=== PATIENT | male | born 1975 | race Caucasian/White ===

== ENCOUNTER 2020-02-27 11:27 | Outpatient (CLI) | payer MEDICAID, SELFPAY ==
[2020-02-27 12:11] LABS: Basophils # 0.1 10^3/uL (0.0-0.1); Basophils % 1.8 %; Eosinophils # 0.1 10^3/uL (0.0-0.8); Eosinophils % 1.6 %; Hematocrit 44.3 % (42.0-52.0); Hemoglobin 15.1 g/dL (11.7-16.6); Lymphocytes # 1.3 10^3/uL (0.8-4.8); Lymphocytes % 34.1 %; Mean Corpuscular HGB Conc 34.1 g/dL (30.0-36.0); Mean Corpuscular Hemoglobin 31.1 pg (28.0-34.0); Mean Corpuscular Volume 91.3 fL (80-94); Mean Platelet Volume 9.4 fL (7.4-10.4); Monocytes # 0.3 10^3/uL (0.2-0.9); Neutrophils # 2.12 10^3/uL (1.8-7.7); Neutrophils % 55.2 %; Nucleated Red Blood Cells % 0 %; Platelet Count 204 10^3/cmm (130-400); Red Blood Count 4.85 10^6/uL (4.1-5.3); White Blood Count 3.8 10^3/uL (4.0-10.0)
[2020-02-27 12:34] LABS: Estmated Average Glucose 97
[2020-02-27 12:41] LABS: Anion Gap 9.2 (5-19); Blood Urea Nitrogen 15 mg/dL (6-20); Carbon Dioxide 30 mmol/L (22-29); Chloride 105 mmol/L (98-107); Free T4 Free Thyroxine 1.36 ng/dL (0.82-1.77); Glomerular Filtration Rate 60.2 mL/min (90-130); Glucose 94 mg/dL (65-115); Osmolality Calculated 291 mOsm/kg (285-295); Potassium 4.2 mmol/L (3.5-5.1); Sodium 140 mmol/L (136-145); Thyroid Stimulating Hormone 1.92 uIU/mL (0.27-4.20)
== END 2020-02-27 11:28 | disposition home or self-care (01) ==
PROVIDERS: PCP Nurse Practitioner Family; Visit Provider Nurse Practitioner Family
DX: R53.83 Other fatigue (principal); R63.4 Abnormal weight loss; E03.9 Hypothyroidism, unspecified
CPT/HCPCS: 36415; 80048; 83036; 84439; 84443; 85025

== ENCOUNTER → 2021-08-06 13:47 | Outpatient (BNVA) | payer MEDICAID, SELFPAY | PROVIDERS: PCP Nurse Practitioner Family; Referring Provider Nurse Practitioner Family; Visit Provider Surgery | DX: R13.10 Dysphagia, unspecified (principal) | CPT/HCPCS: 99203 ==

== ENCOUNTER 2021-08-26 08:56 | Outpatient (CLI) | payer MEDICAID, SELFPAY ==
--- NOTE | 2021-08-26 09:15 | FL_ITS ---
WS: [id number] Exam: FL barium swallow modifd [id number] Date/Time of Exam: 08/26/2021 9:01 AM Reason For Exam: Fluoroscopy time: 2.7 minutes # of spot films: 3 Modified barium swallow was performed in conjunction with the speech therapy service. The patient tolerated thin liquid, thick liquid, nectar consistency and solid barium mixture foodstuf fs without aspiration or penetration. Swallowing function at the level of oropharynx appears grossly normal. Esophageal motility was normal. The patient swallowed fragmented barium tablet without compl ication. FL/FL barium swallow modifd [id number] IMPRESSION: 1. No sign of the aspiration or penetration. Grossly normal esophageal motility and swallowing function. A separate report of findings and recommendations will follow from the speech t herapy department.
== END 2021-08-26 08:57 | disposition home or self-care (01) ==
LOC: RAD 08:58
PROVIDERS: PCP Nurse Practitioner Family; Visit Provider Surgery
DX: R13.10 Dysphagia, unspecified (principal)
CPT/HCPCS: 74230; 92611

== ENCOUNTER 2021-10-15 09:17 | Day surgery (SDC) | payer MEDICAID, SELFPAY ==
[2021-10-14 10:45] VITALS: BMI 22.4
[2021-10-15 09:52] VITALS: BP 113/75; PULSE 66; RESP 18; TEMP 36.3; O2SAT 100
[2021-10-15] MEDS: sodium chloride 0.9% 1,000 ML 30 ML IV (09:55)
--- NOTE | 2021-10-15 10:26 | ANES.PREANE2 ---
Pre-Anesthetic Assessment Height/Weight: Height 1.65 m Weight 61.235 kg Temp Pulse Resp BP Pulse Ox 97.4 F L 66 18 113/75 100 10/15/21 09:52 10/15/21 09:52 10/15/21 09:52 10/15/21 09:52 10/15/21 09:52 Preop Diagnosis: Dysphagia Operation Date: 10/15/21 11:00 Proposed Procedures p EGD Dilation W/ Balloon(Not Applicable) - Dimitri Veloz MD Last intake: Intake Last Liquid Date 10/14/21 Last Liquid Time 23:00 Last Solid Date 10/14/21 Last Solid Time 15:30 Exam alert, clear to auscultation bilaterally and regular rate & rhythm (Pansystolic precordial mumur 4/6) Airway Submandibular: within normal limits Cervical ROM: within normal limits Mallampati: Class II CV/HEM Murmur (s/p VSD repair) GI Gastroesophageal Reflux Disease (esphageal stricture) Metabolic Thyroid Disease Anesthetic Plan ASA status: 3 Anesthesia: MAC (Consent per mother) Medications/Allergies Home Medications Medication Instructions Recorded Confirmed Last Taken Type cyanocobalamin (vitamin B-12) 1,000 mcg IM .MONTHLY 08/06/21 10/14/21 10/14/21 History 1,000 mcg/mL injection solution levocetirizine 5 mg tablet 5 mg PO DAILY 08/06/21 10/14/21 10/14/21 History levothyroxine 100 mcg tablet 100 mcg PO DAILY 08/06/21 10/14/21 10/14/21 History (Synthroid) biotin 1,000 mcg chewable tablet 1,000 mcg PO DAILY 10/14/21 10/14/21 10/14/21 History cholecalciferol (vitamin D3) 125 125 mcg PO DAILY 10/14/21 10/14/21 10/14/21 History mcg (5,000 unit) tablet (Vitamin D3) garlic 1,000 mg capsule 1,000 mg PO DAILY 10/14/21 10/14/21 10/14/21 History ibuprofen 800 mg tablet 800 mg PO Q6H PRN 10/14/21 10/14/21 10/14/21 History Allergies Allergy/AdvReac Type Severity Reaction Status Date / Time No Known Allergies Allergy Verified 10/15/21 09:56 Current Medications Generic Name Dose Route Start Last Admin Trade Name Freq PRN Reason Stop Dose Admin Sodium Chloride 1,000 mls @ 30 mls/hr 10/15/21 09:45 10/15/21 09:55 Sodium Chloride 0.9% IV 30 mls/hr .Q24H HARDY Administration PFSH Anesthesia Family History Other CAD (coronary artery disease) Diabetes Denies family history of Dementia Anesthesia complication Lung disease Cancer Stroke Social History Smoking and tobacco status: never smoked Alcohol intake: never Caregiver/support person: Yes Lives independently: No Household members: other Details: mother Marital status: Single Data Anesthesia Cardiac Studies: No Data to Display
[2021-10-15] MEDS: ceFAZolin 2,000 MG in sodium chloride 0.9% (plus) 50 ML 100 MG IV (11:00)
--- NOTE | 2021-10-15 11:12 | W.PM.OPSFHP ---
Same Day Surgery H&P Indication for Procedure/HPI DATE OF PROCEDURE: October 15, 2021 CHIEF COMPLAINT/INDICATIONFOR SURGICAL PROCEDURE: Problem with swallowing PREOP DIAGNOSIS: Dysphagia PLANNED PROCEDURE: Operation Date: 10/15/21 11:00 Proposed Procedures p EGD Dilation W/ Balloon(Not Applicable) - Dimitri Veloz MD 08/06/2021 This is a pleasant 46 years old gentleman comes today escorted by his mother.? With history of Down syndrome and previous open heart surgery.? Patient has been having problems swallowing over the past year particularly for solid food.? About 2 years ago he gives history of weight loss and he did undergo EGD and colonoscopy where his esophagus got stretched per mom's description. unfortunately I do not have any endoscopy reports available. There is no evidence of hematemesis or hemoptysis or painful swallowing 10/15/2021 Modified barium swallow was done showing unremarkable findings, plan to perform diagnostic EGD today 1. No sign of the aspiration or penetration. Grossly normal esophageal motility and swallowing function. ROS All systems have been reviewed negative except as for the above or per problem list. Medications/Allergies* Home Medications Medication Instructions Recorded Confirmed Type cyanocobalamin (vitamin B-12) 1,000 mcg IM .MONTHLY 08/06/21 10/14/21 History 1,000 mcg/mL injection solution levocetirizine 5 mg tablet 5 mg PO DAILY 08/06/21 10/14/21 History levothyroxine 100 mcg tablet 100 mcg PO DAILY 08/06/21 10/14/21 History (Synthroid) biotin 1,000 mcg chewable tablet 1,000 mcg PO DAILY 10/14/21 10/14/21 History cholecalciferol (vitamin D3) 125 125 mcg PO DAILY 10/14/21 10/14/21 History mcg (5,000 unit) tablet (Vitamin D3) garlic 1,000 mg capsule 1,000 mg PO DAILY 10/14/21 10/14/21 History ibuprofen 800 mg tablet 800 mg PO Q6H PRN 10/14/21 10/14/21 History Allergies/Adverse Reactions Allergy/AdvReac Type Severity Reaction Status Date / Time No Known Allergies Allergy Verified 10/15/21 11:13 Current Medications: Generic Name Dose Route Start Last Admin Trade Name Freq PRN Reason Stop Dose Admin Sodium Chloride 1,000 mls @ 30 mls/hr 10/15/21 09:45 07/14/22 09:55 Sodium Chloride 0.9% IV 30 mls/hr .Q24H HARDY Administration Cefazolin Sodium 2,000 mg/ 50 mls @ 100 mls/hr 10/15/21 10:45 10/15/21 11:00 Sodium Chloride IV 10/15/21 11:14 100 mls/hr ONCE ONE Administration Pertinent History/Comorbid Conditions* Family History (Updated 08/06/21 @ 14:03 by Estella Ugalde) Diabetes CAD (coronary artery disease) Denies family history of Dementia Anesthesia complication Lung disease Cancer Stroke Social History Smoking and tobacco status: never smoked Alcohol intake: never Caregiver/support person: Yes Lives independently: No Household members: other Details: mother Marital status: Single Pertinent Exam Findings alert, oriented x 3, regular rate & rhythm (Pansystolic murmur) and procedure specific exam findings (Abdominal examination nontender nondistended soft) Pertinent Data We will plan to give 2 g of Ancef as an empiric treatment because of the presence of the murmur. Till it is further worked up by primary care provider. Recommendations Surgery/Procedure today (EGD with possible biopsy with possible balloon dilation) Coding Level of Care Code Acute Rocket Motor Tester for Chg Fwd
[2021-10-15 12:01] VITALS: BP 97/55; PULSE 70; RESP 16; TEMP 36.3; O2SAT 96
[2021-10-15 12:06] VITALS: BP 102/62; PULSE 67; RESP 16; O2SAT 97
[2021-10-15 12:15] VITALS: BP 105/66; PULSE 61; RESP 16; O2SAT 98
[2021-10-15 12:25] VITALS: BP 108/71; PULSE 61; RESP 18; O2SAT 98
[2021-10-15 12:50] VITALS: BP 102/78; PULSE 60; RESP 18; O2SAT 98
--- NOTE | 2021-10-15 14:50 | ANE.PACU2 ---
Inpatient post-anesthesia follow up: Airway intact: Yes Vital signs: Temperature 97.3 F Pulse Rate 60 Respiratory Rate 18 Blood Pressure 102/78 Pulse Oximetry 98 Oxygen Delivery Me thod Room Air Oxygen Flow Rate 2 Fraction of Inspir ed Oxygen Hydration adequate: Yes Nausea and vomiting: No Pain level: 1 Mental status: Baseline
== END 2021-10-15 13:25 | disposition home or self-care (01) ==
PROVIDERS: PCP Nurse Practitioner Family; Visit Provider Surgery
DX: R13.10 Dysphagia, unspecified (principal); Q90.9 Down syndrome, unspecified; K22.2 Esophageal obstruction; K29.70 Gastritis, unspecified, without bleeding
CPT/HCPCS: 43249; J2704; J7030

== ENCOUNTER → 2021-10-23 09:08 | Outpatient (BNVA) | payer MEDICAID, SELFPAY | PROVIDERS: PCP Nurse Practitioner Family; Visit Provider Surgery | DX: Z09 Encounter for follow-up examination after completed treatment for conditions other than malignant neoplasm (principal); K22.2 Esophageal obstruction; R13.10 Dysphagia, unspecified | CPT/HCPCS: 99213 ==

== ENCOUNTER 2021-12-25 08:19 | Day surgery (SDC) | payer MEDICAID, SELFPAY ==
[2021-12-23 10:14] VITALS: BMI 21.9
[2021-12-25 08:32] VITALS: BP 118/79; PULSE 60; RESP 18; TEMP 36.3; O2SAT 100
[2021-12-25] MEDS: sodium chloride 0.9% 1,000 ML 30 ML IV (08:46)
--- NOTE | 2021-12-25 08:49 | ANES.PREANE2 ---
Pre-Anesthetic Assessment Height/Weight: Height 1.65 m Weight 59.874 kg Temp Pulse Resp BP Pulse Ox O2 Del Method 97.4 F L 60 18 118/79 100 12/25/21 08:32 12/25/21 08:32 12/25/21 08:32 12/25/21 08:32 12/25/21 08:32 12/25/21 08:32 Preop Diagnosis: Dysphagia Operation Date: 12/25/21 09:45 Proposed Procedures p EGD Dilation W/ Balloon 90491,R13.10,K22.2(Not Applicable) - Dedrick Diaz DO Last intake: Intake Last Liquid Date 12/24/21 Last Liquid Time 23:00 Last Solid Date 12/24/21 Last Solid Time 16:30 Social No alcohol and No tobacco Exam alert, clear to auscultation bilaterally and regular rate & rhythm developmental delay, mother at bedside Airway Submandibular: within normal limits Cervical ROM: within normal limits Mallampati: Class I Comments: Comments: no teeth History/ROS No significant history except as noted and No significant complaints Pulmonary None reported CV/HEM None reported open heart 2009. saw cardiology in [facility] yearly None reported Hepatic None reported GI Gastroesophageal Reflux Disease Metabolic Thyroid Disease [facility] [place] None reported Neuropsych Deficit Anesthetic Plan ASA status: 2 Anesthesia: Anesthesia Evaluation and MAC Risk of > 500 ml blood loss (7ml/kg in children): Yes, adequate IV access and fluids planned Medications/Allergies Home Medications Medication Instructions Recorded Confirmed Last Taken Type cyanocobalamin (vitamin B-12) 1,000 mcg IM .MONTHLY 08/06/21 12/25/21 11/24/21 History 1,000 mcg/mL injection solution levothyroxine 100 mcg tablet 100 mcg PO DAILY 08/06/21 12/23/21 12/24/21 History (Synthroid) biotin 1,000 mcg chewable tablet 1,000 mcg PO DAILY 10/14/21 12/23/21 10/14/21 History cholecalciferol (vitamin D3) 125 125 mcg PO DAILY 10/14/21 12/23/21 12/24/21 History mcg (5,000 unit) tablet (Vitamin D3) garlic 1,000 mg capsule 1,000 mg PO DAILY 10/14/21 12/23/21 12/24/21 History Allergies Allergy/AdvReac Type Severity Reaction Status Date / Time No Known Allergies Allergy Verified 10/23/21 09:21 Current Medications Generic Name Dose Route Start Last Admin Trade Name López PRN Reason Stop Dose Admin Sodium Chloride 1,000 mls @ 30 mls/hr 12/25/21 08:30 12/25/21 08:46 Sodium Chloride 0.9% IV 12/26/21 08:29 30 mls/hr .Q24H HARDY Administration PFSH Anesthesia Medical History Esophageal stricture Family History Other CAD (coronary artery disease) Diabetes Denies family history of Dementia Anesthesia complication Lung disease Cancer Stroke Social History Smoking and tobacco status: never smoked Alcohol intake: never Caregiver/support person: Yes Lives independently: No Household members: other Details: mother Marital status: Single Data Anesthesia Cardiac Studies: No Data to Display
--- NOTE | 2021-12-25 09:12 | PM.HP ---
Providers/Chief Complaint Primary Care Provider: Reinaldo Bojorquez NP Chief Complaint: Dysphagia History of Present Illness Asa Smith is a 46 year old male here for EGD with balloon dilation Medications/Allergies Home Medications Medication Instructions Recorded Confirmed Last Taken Type cyanocobalamin (vitamin B-12) 1,000 mcg IM .MONTHLY 08/06/21 12/25/21 11/24/21 History 1,000 mcg/mL injection solution levothyroxine 100 mcg tablet 100 mcg PO DAILY 08/06/21 12/23/21 12/24/21 History (Synthroid) biotin 1,000 mcg chewable tablet 1,000 mcg PO DAILY 10/14/21 12/23/21 10/14/21 History cholecalciferol (vitamin D3) 125 125 mcg PO DAILY 10/14/21 12/23/21 12/24/21 History mcg (5,000 unit) tablet (Vitamin D3) garlic 1,000 mg capsule 1,000 mg PO DAILY 10/14/21 12/23/21 12/24/21 History Allergies Allergy/AdvReac Type Severity Reaction Status Date / Time No Known Allergies Allergy Verified 10/23/21 09:21 PFSH Acute PFSH: Medical History (Updated 12/25/21 @ 09:12 by Dedrick Diaz DO) Down syndrome Esophageal stricture Hypothyroidism Surgical History (Updated 12/25/21 @ 09:12 by Dedrick Diaz DO) History of colonoscopy History of esophagogastroduodenoscopy (EGD) 10/15/21 History of esophagogastroduodenoscopy (EGD) 2019 History of open heart surgery 2019 Family History Other CAD (coronary artery disease) Diabetes Denies family history of Dementia Anesthesia complication Lung disease Cancer Stroke Social History Smoking and tobacco status: never smoked Alcohol intake: never Caregiver/support person: Yes Lives independently: No Household members: other Details: mother Marital status: Single Vitals/I&O/Wt Last Vital Signs Temp 97.4 F L 12/25/21 08:32 Pulse 60 12/25/21 08:32 Resp 18 12/25/21 08:32 BP 118/79 12/25/21 08:32 Pulse Ox 100 12/25/21 08:32 O2 Del Method 12/25/21 08:32 Weight last 48 hrs Weight 132 lb A&P Assessment and plan (1) Dysphagia: Status: Acute Plan EGD with balloon dilation Attestations Medical Necessity Statement*: Home Coding Level of Care Code Acute Medical Transcription Supervisor for Chg Fwd Diagnoses Dysphagia R13.10
[2021-12-25 09:42] VITALS: BP 94/62; PULSE 80; RESP 16; TEMP 36.2; O2SAT 98
[2021-12-25 09:50] VITALS: BP 113/69; PULSE 77; RESP 16; O2SAT 97
--- NOTE | 2021-12-25 13:37 | ANE.PACU2 ---
Inpatient post-anesthesia follow up: Airway intact: Yes Vital signs: Temperature 97.2 F Pulse Rate 77 Respiratory Rate 16 Blood Pressure 113/69 Pulse Oximetry 97 Oxygen Delivery Me thod Nasal Cannula Oxygen Flow Rate 6 Fraction of Inspir ed Oxygen Hydration adequate: Yes Nausea and vomiting: No Pain level: 1 Mental status: Baseline
== END 2021-12-25 10:53 | disposition home or self-care (01) ==
PROVIDERS: PCP Nurse Practitioner Family; Visit Provider Surgery
DX: R13.10 Dysphagia, unspecified (principal); K22.2 Esophageal obstruction; K29.50 Unspecified chronic gastritis without bleeding; B96.81 Helicobacter pylori [H. pylori] as the cause of diseases classified elsewhere; K21.9 Gastro-esophageal reflux disease without esophagitis
CPT/HCPCS: 43239; 43249; 88305; J2704; J7030

== ENCOUNTER → 2022-01-18 14:20 | Outpatient (BNVA) | payer MEDICAID, SELFPAY | PROVIDERS: PCP Nurse Practitioner Family; Visit Provider Surgery | DX: K29.70 Gastritis, unspecified, without bleeding (principal); Z09 Encounter for follow-up examination after completed treatment for conditions other than malignant neoplasm; K22.2 Esophageal obstruction; B96.81 Helicobacter pylori [H. pylori] as the cause of diseases classified elsewhere | CPT/HCPCS: 99212 ==

== ENCOUNTER 2022-07-22 15:48 | Emergency (ER) | payer MEDICAID, SELFPAY ==
[2022-07-22 15:54] VITALS: BP 93/65; PULSE 82; RESP 16; TEMP 36.6; O2SAT 93
--- NOTE | 2022-07-22 16:03 | W.ED.URI ---
HPI - URI/Sore Throat General: Chief Complaint: Upper Respiratory Infection Stated Complaint: Maryellen sent/abnormal labs Time Seen by Provider: 07/22/22 16:03 Source: patient Mode of arrival: ambulatory History of Present Illness: 47-year-old male brought into the emergency room by his mother. He is his primary care doctor after that a hard time monitoring his sats were concerned he was hypoxic so he was directed to the ER. On arrival here patient is in no acute respiratory distress and his oxygen saturations in the mid to upper 90s when tracking well. He is awake and alert. He does have some moderate cognitive deficits. He is able to participate in history COVID he denies chest or abdominal pain. Mild sore throat. MD elicited complaint: fever, cough and sore throat Onset (ago): day(s) Consistency: constant and progressively worsening Severity: mild Exacerbating factors: nothing Relieving factors: nothing Associated symptoms: Deny abdominal pain, change in voice, chills, chest pain, congestion, cough, diarrhea, epistaxis, ear or mastoid pain, fever(s), headache(s), myalgias, nasal congestion, nausea, rash, rhinorrhea, short of breath, sinus pain, stiffness, sore throat or vomiting Review of Systems Const: Denies: fever(s) or chills ENMT: Denies: ear or mastoid pain, nasal congestion, epistaxis or sinus pain Card: Denies: chest pain Resp: Reports: dyspnea and non-productive cough GI: Denies: abdominal pain, nausea, vomiting or diarrhea Neuro: Denies: headache(s) PFS ED PFSH: Medical History Down syndrome Esophageal stricture Helicobacter pylori gastritis Hypothyroidism Surgical History History of colonoscopy History of esophagogastroduodenoscopy (EGD) 10/15/21 History of esophagogastroduodenoscopy (EGD) 2019 History of open heart surgery 2019 Family History Other CAD (coronary artery disease) Diabetes Denies family history of Dementia Anesthesia complication Lung disease Cancer Stroke Social History (Reviewed 07/22/22 @ 16:41 by DAKOTAH nIman Smoking and tobacco status: never smoked Alcohol intake: never Substance/Drug Use: never Caregiver/support person: Yes Lives independently: No Household members: other Details: mother Marital status: Single Physical Exam Const: GENERAL APPEARANCE: cooperative and comfortable ORIENTATION/CONSCIOUSNESS: Yes awake, Yes oriented to person, Yes oriented to place and Yes oriented to time HENMT: COMMON NORMALS: normocephalic, atraumatic and hearing grossly normal bilaterally HEAD & SCALP: normocephalic and atraumatic Resp: COMMON NORMALS: normal respiratory effort, No retractions, No use of accessory muscles and clear to auscultation bilaterally AUSCULTATION: clear to auscultation bilaterally Cardio: COMMON NORMALS: regular rate, regular rhythm and No murmurs present (Cardio) RATE: regular rate RHYTHM: regular rhythm GI: COMMON NORMALS: Soft to palpation and No hepatosplenomegaly present AUSCULTATION: Yes normoactive bowel sounds PALPATION: Yes Soft to palpation, No Tenderness to palpation present (GI), No Guarding due to palpation present (GI) and Yes No hepatosplenomegaly present : COMMON NORMALS: Yes no CVA tenderness BLADDER/KIDNEY EXAM: Yes no CVA tenderness Back/Pelvis: COMMON NORMALS: no CVA tenderness Extremity: COMMON NORMALS: normal to inspection, capillary refill normal, no clubbing, cyanosis or edema, no calf tenderness and no pedal edema Neuro: SENSORIUM/ORIENTATION: Yes oriented to person, Yes oriented to place and Yes oriented to time Skin: COMMON NORMALS: no rashes or lesions noted GENERAL SKIN EXAM: no rashes or lesions noted Course Vital Signs: Vital signs: Vital Signs Temperature 97.9 F 07/22/22 15:54 Pulse Rate 82 07/22/22 15:54 Respiratory Rate 16 07/22/22 15:54 Blood Pressure 93/65 07/22/22 15:54 Pulse Oximetry 93 07/22/22 15:54 Oxygen Delivery Me thod Room Air 07/22/22 15:54 MDM - URI/Sore Throat Medical Decision Making Chest x-ray unremarkable patient does have moderate leukocytosis. The rest of exam is normal his oxygen sats are good we will discharge patient home on doxycycline 100 mg 1 p.o. twice daily x10 days. Follow-up with primary care if not improving or worsens. Medical Records I reviewed the patient's medical records. Lab Data I reviewed the patient's lab results. 07/22/22 16:20 07/22/22 16:20 Laboratory Results WBC 17.9 10^3/uL (4.0-10.0) H 07/22/22 16:20 RBC 4.53 10^6/uL (4.1-5.3) 07/22/22 16:20 Hgb 14.6 g/dL (11.7-16.6) 07/22/22 16:20 Hct 41.5 % (42.0-52.0) L 07/22/22 16:20 MCV 91.6 fl (80-94) 07/22/22 16:20 MCH 32.2 pg (28.0-34.0) 07/22/22 16:20 MCHC 35.2 g/dL (30.0-36.0) 07/22/22 16:20 RDW 12.5 % (12.1-15.1) 07/22/22 16:20 Plt Count 400 10^3/cmm (130-400) 07/22/22 16:20 MPV 8.8 fL (7.4-10.4) 07/22/22 16:20 Neut % (Auto) 89.6 % 07/22/22 16:20 Lymph % (Auto) 3.9 % 07/22/22 16:20 [place] % (Auto) 5.4 % 07/22/22 16:20 Eos % (Auto) 0.0 % 07/22/22 16:20 Baso % (Auto) 0.2 % 07/22/22 16:20 Neut # (Auto) 16.06 10^3/uL (1.8-7.7) H 07/22/22 16:20 Lymph # (Auto) 0.7 10^3/uL (0.8-4.8) L 07/22/22 16:20 [place] # (Auto) 1.0 10^3/uL (0.2-0.9) H 07/22/22 16:20 Eos # (Auto) 0.0 10^3/uL (0.0-0.8) 07/22/22 16:20 Baso # (Auto) 0.0 10^3/uL (0.0-0.1) 07/22/22 16:20 Nucleated RBC % (auto) 0 % 07/22/22 16:20 Nucleated RBCs # 0.0 /100WBC 07/22/22 16:20 Discharge Plan Discharge Patient Disposition: Home Clinical Impression: Upper respiratory infection Condition: Stable Prescriptions: New albuterol sulfate 90 mcg/actuation HFA aerosol inhaler 2 inh INHALATION Q4H PRN (Reason: shortness of breath or wheezing) Qty: 18 0RF prednisone 20 mg tablet 20 mg PO TID Qty: 15 0RF Rx Instructions: 1 p.o. 3 times daily x3 days, 1 p.o. twice daily x2 days, 1 p.o. daily x2 days No Action cyanocobalamin (vitamin B-12) 1,000 mcg/mL solution 1,000 mcg IM .MONTHLY levothyroxine [Synthroid] 100 mcg tablet 100 mcg PO DAILY garlic 1,000 mg Capsule 1,000 mg PO DAILY Hold Instructions: Resume on 10/21/21. cholecalciferol (vitamin D3) [Vitamin D3] 125 mcg (5,000 unit) Tablet 125 mcg PO DAILY biotin 1,000 mcg Tablet,Chewable 1,000 mcg PO DAILY Discharge Orders: Discharge ED (Routine); Ordered 07/22/22 Ordered By: Oziel Muniz Referrals: Reinaldo Bojorquez NP [Primary Care Provider] - Discharge Diet: Usual diet Discharge Activity: Resume usual activity Patient Instructions: Opioid Safety, Pain Management Activity Restrictions/Additional Instructions: You were seen today for upper respiratory infection your chest x-ray was normal your white count was elevated the remainder your exam was normal your oxygen saturations maintained normal on room air. Recommend to start doxycycline 100 mg p.o. twice daily for 10 days follow-up with your primary care doctor if not improving or worsening. Coding Level of Care Code ED Communication Signals Intelligence for Nga Rondon
--- NOTE | 2022-07-22 16:09 | XRR_ITS ---
PROCEDURE INFORMATION: Exam: XR Chest Exam date and time: 07/22/2022 4:24 PM Age: 47 years old Clinical indication: Cough and dyspnea; Prior surgery; Additional info: Dyspnea/cough TECHNIQUE: Imaging protocol: Radiologic exam of the chest. Views: 1 view. COMPARISON: CR XR chest 2V* [id number] 09/14/2018 3:52 PM FINDINGS: Lungs: Left hilar to lower lobe pneumonia. Emphysematous changes. Pleural spaces: Unremarkable. No pleural effusion. No pneumothorax. Heart/Mediastinum: Unremarkable. No cardiomegaly. Bones/joints: Sternotomy wires. XR/XR chest 1V portable [id number] IMPRESSION: 1. Left hilar to lower lobe pneumonia. 2. Sternotomy wires. 3. Emphysematous changes.
--- NOTE | 2022-07-22 16:09 | ECG_ITS ---
[facility] Test Date: 2022-07-22 Pat Name: Asa Smith Department: Room: Gender: Male Hog Driver: : 1975 Requested By: Oziel Cooper Order Number: [id number] Norm MD: Nate Mendoza M.D. Measurements Intervals Acosta Rate: 95 P: 73 ID: [id number] QRS: 91 QRSD: 121 T: 44 QT: 387 QTc: 489 Interpretive Statements SINUS RHYTHM POSSIBLE LEFT ATRIAL ENLARGEMENT [-0.1mV P-WAVE IN V1/V2] BORDERLINE RIGHT AXIS DEVIATION [QRS AXIS > 90] POSSIBLE RIGHT VENTRICULAR CONDUCTION DELAY [RSR (QR) IN V1/V2] SEPTAL MYOCARDIAL INFARCTION , PROBABLY OLD [40+ ms Q WAVE IN V1/V2] No previous ECG available for comparison Electronically Signed On 07-23-2022 1:34:39 CDT by Nate Mendoza M.D. [id number]
[2022-07-22 16:29] LABS: Basophils % 0.2 %; Hematocrit 41.5 % (42.0-52.0); Hemoglobin 14.6 g/dL (11.7-16.6); Lymphocytes # 0.7 10^3/uL (0.8-4.8); Lymphocytes % 3.9 %; Mean Corpuscular HGB Conc 35.2 g/dL (30.0-36.0); Mean Corpuscular Hemoglobin 32.2 pg (28.0-34.0); Mean Corpuscular Volume 91.6 fl (80-94); Mean Platelet Volume 8.8 fL (7.4-10.4); Monocytes % 5.4 %; Neutrophils # 16.06 10^3/uL (1.8-7.7); Neutrophils % 89.6 %; Nucleated Red Blood Cells % 0 %; Platelet Count 400 10^3/cmm (130-400); Red Blood Count 4.53 10^6/uL (4.1-5.3); Red Cell Distribution Width 12.5 % (12.1-15.1); White Blood Count 17.9 10^3/uL (4.0-10.0)
[2022-07-22 16:49] LABS: Alanine Aminotransferase 9 U/L (0-41); Albumin Level 2.9 g/dL (3.5-5.2); Alkaline Phosphatase 66 U/L (40-130); Aspartate Amino Transferase 16 U/L (0-40); Blood Urea Nitrogen 15 mg/dL (6-20); Calcium 8.5 mg/dL (8.5-10.5); Carbon Dioxide 24 mmol/L (22-29); Chloride 97 mmol/L (98-107); Globulin 4.6 g/dL (1.3-4.6); Glomerular Filtration Rate 72.1 mL/min (90-130); Glucose 121 mg/dL (65-115); Osmolality Calculated 282 mOsm/kg (285-295); Sodium 135 mmol/L (136-145); Total Bilirubin 0.8 mg/dL (0.15-1.2); Total Protein 7.5 g/dL (6.6-8.7)
[2022-07-22 16:54] LABS: Anion Gap 18.3 (5-19); Potassium 4.3 mmol/L (3.5-5.1)
== END 2022-07-22 18:15 | disposition home or self-care (01) ==
PROVIDERS: Emergency Provider Family Medicine; PCP Nurse Practitioner Family
DX: J06.9 Acute upper respiratory infection, unspecified (principal); J18.9 Pneumonia, unspecified organism; Q90.9 Down syndrome, unspecified
CPT/HCPCS: 71045; 80053; 85025; 93005; 99285

== ENCOUNTER 2022-08-11 06:49 | Day surgery (SDC) | payer MEDICAID, SELFPAY ==
[2022-08-09 08:52] VITALS: BMI 17.1
[2022-08-11] VITALS (8 sets, daily range): BP systolic 85–97; BP diastolic 51–64; PULSE 63–81; RESP 16; TEMP 36.1–36.3; O2SAT 96–100
[2022-08-11] MEDS: sodium chloride 0.9% 1,000 ML 30 ML IV (07:20)
--- NOTE | 2022-08-11 07:41 | ANES.PREANE2 ---
Pre-Anesthetic Assessment Height/Weight: Height 1.65 m Weight 46.72 kg Temp Pulse Resp BP Pulse Ox O2 Del Method 97.4 F L 81 16 89/64 96 Room Air 08/11/22 07:14 08/11/22 07:14 08/11/22 07:14 08/11/22 07:14 08/11/22 07:14 08/11/22 07:14 Preop Diagnosis: Dysphagia Operation Date: 08/11/22 08:15 Proposed Procedures p EGD Dilation W/ Balloon 57220,K22.2,R13.10(Not Applicable) - Dedrick Diaz DO Familial anesthetic complications: none, several anesthetics in last year or two without issue Was Beta Bo taken within 24 hours: N/A Was Clonidine taken within 24 hours: N/A Last intake: Intake Last Liquid Date 08/10/22 Last Liquid Time 22:30 Last Solid Date 08/04/22 Last Solid Time 00:00 Social No alcohol and No tobacco Exam alert, oriented x 3, clear to auscultation bilaterally and regular rate & rhythm Airway Submandibular: within normal limits Cervical ROM: within normal limits Mallampati: Class I Dentition: false Pulmonary Asthma CV/HEM Murmur (loud holosystolic murmur) H/O open heart with what sounds like VSD (multiple) repair according to mother--2009 Metabolic Thyroid Disease Neuropsych Trisomy Anesthetic Plan ASA status: 3 Anesthesia: MAC Medications/Allergies Home Medications Medication Instructions Recorded Confirmed Last Taken Type cyanocobalamin (vitamin B-12) 1,000 mcg IM .MONTHLY 08/06/21 08/09/22 07/26/22 History 1,000 mcg/mL injection solution levothyroxine 100 mcg tablet 100 mcg PO DAILY 08/06/21 08/11/22 08/10/22 History (Synthroid) biotin 1,000 mcg chewable tablet 1,000 mcg PO DAILY 10/14/21 08/11/22 08/09/22 History cholecalciferol (vitamin D3) 125 125 mcg PO DAILY 10/14/21 08/11/22 08/09/22 History mcg (5,000 unit) tablet (Vitamin D3) garlic 1,000 mg capsule 1,000 mg PO DAILY 10/14/21 08/11/22 08/09/22 History albuterol sulfate 90 mcg/actuation 2 inh inhalation Q4H PRN shortness 07/22/22 08/11/22 Unknown Rx aerosol inhaler of breath or wheezing #18 grams Allergies Allergy/AdvReac Type Severity Reaction Status Date / Time No Known Allergies Allergy Verified 08/09/22 08:47 Current Medications Generic Name Dose Route Start Last Admin Trade Name Freq PRN Reason Stop Dose Admin Sodium Chloride 1,000 mls @ 30 mls/hr 08/11/22 07:00 08/11/22 07:20 Sodium Chloride 0.9% IV 08/12/22 06:59 30 mls/hr .Q24H HARDY Administration PFSH Anesthesia Medical History Down syndrome Esophageal stricture Helicobacter pylori gastritis Hypothyroidism Surgical History History of colonoscopy History of esophagogastroduodenoscopy (EGD) 10/15/21 History of esophagogastroduodenoscopy (EGD) 2019 History of open heart surgery 2019 Family History Other CAD (coronary artery disease) Diabetes Denies family history of Dementia Anesthesia complication Lung disease Cancer Stroke Social History Smoking and tobacco status: never smoked Alcohol intake: never Substance/Drug Use: never Caregiver/support person: Yes Lives independently: No Household members: other Details: mother Marital status: Single Data Anesthesia Cardiac Studies: No Data to Display
--- NOTE | 2022-08-11 08:09 | PM.HP ---
Providers/Chief Complaint Primary Care Provider: Reinaldo Bojorquez NP Chief Complaint: K22.2, R13.10 History of Present Illness Asa Smith is a 47 year old male here for EGD with possible balloon dilation Medications/Allergies Home Medications Medication Instructions Recorded Confirmed Last Taken Type cyanocobalamin (vitamin B-12) 1,000 mcg IM .MONTHLY 08/06/21 08/09/22 07/26/22 History 1,000 mcg/mL injection solution levothyroxine 100 mcg tablet 100 mcg PO DAILY 08/06/21 08/11/22 08/10/22 History (Synthroid) biotin 1,000 mcg chewable tablet 1,000 mcg PO DAILY 10/14/21 08/11/22 08/09/22 History cholecalciferol (vitamin D3) 125 125 mcg PO DAILY 10/14/21 08/11/22 08/09/22 History mcg (5,000 unit) tablet (Vitamin D3) garlic 1,000 mg capsule 1,000 mg PO DAILY 10/14/21 08/11/22 08/09/22 History albuterol sulfate 90 mcg/actuation 2 inh inhalation Q4H PRN shortness 07/22/22 08/11/22 Unknown Rx aerosol inhaler of breath or wheezing #18 grams Allergies Allergy/AdvReac Type Severity Reaction Status Date / Time No Known Allergies Allergy Verified 08/09/22 08:47 PFSH Acute PFSH: Medical History Down syndrome Esophageal stricture Helicobacter pylori gastritis Hypothyroidism Surgical History History of colonoscopy History of esophagogastroduodenoscopy (EGD) 10/15/21 History of esophagogastroduodenoscopy (EGD) 2019 History of open heart surgery 2019 Family History Other CAD (coronary artery disease) Diabetes Denies family history of Dementia Anesthesia complication Lung disease Cancer Stroke Social History Smoking and tobacco status: never smoked Alcohol intake: never Substance/Drug Use: never Caregiver/support person: Yes Lives independently: No Household members: other Details: mother Marital status: Single Vitals/I&O/Wt Last Vital Signs Temp 97.4 F L 08/11/22 07:14 Pulse 81 08/11/22 07:14 Resp 16 08/11/22 07:14 BP 89/64 08/11/22 07:14 Pulse Ox 96 08/11/22 07:14 O2 Del Method Room Air 08/11/22 07:14 Weight last 48 hrs Weight 103 lb A&P Assessment and plan (1) Esophageal stricture: (2) Dysphagia: Plan EGD with possible balloon dilation The risks and benefits of the procedure, including bleeding, infection, intestinal perforation requiring surgery, missed lesion were explained to the patient. The patient is understanding of the risks and wishes to proceed. Attestations Medical Necessity Statement*: Home Coding Level of Care Code Acute Code for Chg Fwd Diagnoses Esophageal stricture K22.2 Dysphagia R13.10
--- NOTE | 2022-08-11 17:31 | ANE.PACU2 ---
Inpatient post-anesthesia follow up: Airway intact: Yes Vital signs: Temperature 97.0 F Pulse Rate 63 Respiratory Rate 16 Blood Pressure 94/62 Pulse Oximetry 99 Oxygen Delivery Me thod Room Air Oxygen Flow Rate 2 Fraction of Inspir ed Oxygen Hydration adequate: Yes Nausea and vomiting: No Pain level: 2 Mental status: Baseline
== END 2022-08-11 10:08 | disposition home or self-care (01) ==
PROVIDERS: PCP Nurse Practitioner Family; Visit Provider Surgery
DX: R13.10 Dysphagia, unspecified (principal); K22.2 Esophageal obstruction; K29.50 Unspecified chronic gastritis without bleeding; J45.909 Unspecified asthma, uncomplicated; E03.9 Hypothyroidism, unspecified; R01.1 Cardiac murmur, unspecified; Q90.9 Down syndrome, unspecified
CPT/HCPCS: 43239; 43249; 88305; 88342; J2704; J7030

== ENCOUNTER → 2022-08-26 16:33 | Outpatient (BNVA) | payer MEDICAID, SELFPAY | PROVIDERS: PCP Nurse Practitioner Family; Visit Provider Surgery | DX: Z09 Encounter for follow-up examination after completed treatment for conditions other than malignant neoplasm (principal) | CPT/HCPCS: 99024; 99212 ==

== ENCOUNTER 2024-02-14 11:20 | Outpatient (CLI) | payer MEDICAID, SELFPAY ==
--- NOTE | 2024-02-14 11:22 | US_ITS ---
WS: [id number] THYROID ULTRASOUND HISTORY: HYPOTHYROIDISM COMPARISON: None available. Right lobe: 1.3 cm x 1.7 cm x 5.9 cm (w x ap x l). Volume: 6.1 cm3. Thyroid lobe is extremely difficult to visualize. The lobe appears heterogeneous and enlarged. No inc reased vascularity. No discrete nodule is identified. Left lobe: 2.8 cm x 2.1 cm x 5.5 cm (w x ap x l). Volume: 15.0 cm3. Very poorly visualized heterogeneous gland. No discrete nodule or increased vascularity. Isthmus: 0.6 cm. US/US thyroid [id number] IMPRESSION: Poorly visualized heterogeneous gland. No mass identified. Limited by body habi tus.
== END 2024-02-14 11:21 | disposition home or self-care (01) ==
LOC: RAD 11:20
PROVIDERS: PCP Nurse Practitioner Family; Visit Provider Internal Medicine
DX: E03.9 Hypothyroidism, unspecified (principal); E04.9 Nontoxic goiter, unspecified
CPT/HCPCS: 76536

== ENCOUNTER 2024-12-04 12:28 | Emergency (ER) | payer MEDICAID, SELFPAY ==
--- OUTSIDE RECORDS SUMMARY | 2024-12-04 12:33 | XMS_ITS | Clinical Summary ---
Author Organization [facility] Address [address] [place] [address] Phone Care Team Providers Care Enterprise Systems Architect Name Role Phone Unavailable Primary Care Provider Unavailabl e Medications No known medications Social History Tobacco Use Types Packs/Day Years Used Date Smoking Tobacco: Never Assessed Feeling Safe Answer Date Recorded Are you in a relationship wi th someone who hurts you emotionally and/or physically? 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 Gender Identity Not on file Sexual Orientation Not on file Last Filed Vital Signs Vital Sign Reading Time Taken Comments Blood Pressure 106/63 03/17/2023 6:45 PM ELECTRONIC VIDEO GAMES SERVICER Pulse 66 03/17/2023 6:50 PM ELECTRONIC VIDEO GAMES SERVICER Temperature 36.8 C (98.2 F) 03/17/2023 5:50 PM ELECTRONIC VIDEO GAMES SERVICER Respiratory Rate 18 03/17/2023 5:50 PM ELECTRONIC VIDEO GAMES SERVICER Oxygen Saturation 99% 03/17/2023 6:50 PM ELECTRONIC VIDEO GAMES SERVICER Inhaled Oxygen Concentration - - Weight 63.5 kg (140 lb) 03/17/2023 5:50 PM ELECTRONIC VIDEO GAMES SERVICER Height 165.1 cm (5' 5 ) 03/17/2023 5:50 PM ELECTRONIC VIDEO GAMES SERVICER Body Mass Index 23.3 03/17/2023 5:50 PM ELECTRONIC VIDEO GAMES SERVICER Plan of Treatment Health Maintenance Due Date Last Done Comments DTAP/TDAP/TD VACCINES (1 - Tdap) 02/27/1995 HEPATITIS B VACCINES (1 of 3 - 19+ 3-dose series) 02/03 COLORECTAL SCREENING 02/27/2021 Colorectal Cancer Screening 02/27/2021 FIT-DNA Q 3 years 02/27/2021 FIT/FOBT Q 1 year 02/27/2021 Flex Sig/CT Colonography Q 5 years 02/27/2021 INFLUENZA VACCINE (#1) 2024 Insurance MEDICAID [place]
[2024-12-04 12:40] VITALS: BP 103/72; PULSE 63; TEMP 36.3; O2SAT 100
--- NOTE | 2024-12-04 13:33 | CT_ITS ---
WS: [id number] CT ABDOMEN AND PELVIS WITH CONTRAST HISTORY: RUQ pain TECHNIQUE: Imaging performed of the abdomen and pelvis with IV contrast. Single phase imaging of the abdomen. Coronal and sagittal reformats are submitted. All CT scans at [facility] use at least one of these dose optimization techniques: automated exposure control; mA and/or kV adjustment per patient size (includes targeted exams where dose is matched to clinical indication); or iterative reconstruction. IV CONTRAST: Omnipaque 350; 100 mL IV. Oral contrast: No DLP: 345.96 mGy.cm COMPARISON: 09/25/2018 CT Lower thorax: Lung bases are clear. Heart is normal size. No hiatal hernia. Liver/biliary system: Normal size with no intrahepatic dilatation. Gallbladder: Normal. No gallstones or wall thickening. No pericholecystic fluid. Pancreas: Normal size pancreas and pancreatic duct. No adjacent inflammation. Spleen: Normal size spleen. No mass or infarct. Very small scattered hypodensities within the spleen. Nonspecific hypodensities in one was present in 2019. Adrenal glands: Normal. Right kidney: Mild atrophy with no obstruction. Left kidney: Mild atrophy with no obstruction. Aorta: Normal. Lymphadenopathy: None. Free fluid: No free fluid. GI tract: No GI tract obstruction. Stomach is moderately well distended with fluid. No gastric ulcer is identified. No small bowel obstruction. There are a few loops of bowel which are collapsed. There is no obstructive pattern to suggest there is a high-grade stricture or stenosis. Appendix is not definitely identified. No secondary signs of appendicitis. Abdominal wall: Fat containing umbilical hernia. Pelvis: No free fluid or adenopathy within the pelvis. Urinary bladder is not distended. Diffuse mild thickening of the bladder wall up to 6.6 mm may be due to under distention. Bones: Degenerative hypertrophic changes in the lumbar spine. CT/CT abdomen pelvis w con* [id number] IMPRESSION: 1. No acute abdominal or pelvic abnormalities. 2. No intrahepatic duct dilatation. 3. No renal obstruction, mild bilateral renal atrophy. 4. No colon or small bowel obstruction. There are a few loops of GI tract whic h are collapsed. No obstructing process identified. 5. No ascites or adenopathy. 6. Diffuse urinary bladder wall thickening is probably due to under distention .
--- NOTE | 2024-12-04 13:33 | ED_ITS ---
HPI - General Adult 2 General: Chief complaint: Abdominal Pain Stated complaint: abd pain in the front Time Seen by Provider: 12/04/24 13:08 History of Present Illness: 41-year-old male with a chief complaint of poor p.o. intake since Tuesday and difficulty swallowing and right upper quadrant abdominal pain. He was referred from his primary care physician's office. Patient has a history of high functioning autism, esophageal strictures with dilation 2 years ago, hypothyroidism. He has not had a fever but states he has had difficulty keeping food down though he can still tolerate fluids. Patient's been recovering from a cold and still has a dry cough but no chest pain or shortness of breath. Patient reports upper abdomen pain especially in the right upper quadrant. He had a normal bowel movement this morning with no blood. He denies any urinary symptoms. He does not have any history of abdominal surgeries. Related Data Home Medications ?Medication ?Instructions ?Recorded ?Confirmed biotin 1,000 mcg chewable tablet 1,000 mcg PO DAILY 12/04/24 ergocalciferol (vitamin D2) 1,250 50,000 unit PO .Q30D 12/04/24 12/04/24 mcg (50,000 unit) capsule levothyroxine 75 mcg tablet 75 mcg PO DAILY 12/04/24 0 12/04/24 (Synthroid) Previous Rx's ?Medication ?Instructions ?Recorded albuterol sulfate 90 mcg/actuation 2 inh inhalation Q4 H PRN shortness 07/22/22 aerosol inhaler of breath or wheezing #18 gr ams Allergies Allergy/AdvReac Type Severity Reaction Status Date / Time No Known Allergies Allergy Verified 12/04/24 12:46 [facility] ED 2 [facility]: Medical History (Updated 12/04/24 @ 17:00 by Linda Rodriguez MD) Helicobacter pylori gastritis Hypothyroidism Down syndrome Esophageal stricture Surgical History History of open heart surgery 2019 History of colonoscopy History of esophagogastroduodenoscopy (EGD) 2019 History of esophagogastroduodenoscopy (EGD) 10/15/21 Family History Other CAD (coronary artery disease) Diabetes Denies family history of Dementia Anesthesia complication Lung disease Cancer Stroke Social History Smoking and tobacco/nicotine status: never used tobacco/nicotine Alcohol intake: never Substance/Drug Use: never Caregiver/support person: Yes Lives independently: No Household members: other Details: mother Marital status: Single Physical Exam 2 Narrative: EXAM NARRATIVE: Vital signs were reviewed. Patient is alert and oriented. Patient is breathing comfortably, no increased WOB or accessory muscle use. SpO2 is above 95% on RA. No hypotension or tachycardia. Patient has a nondistended abdomen though he does have pain with palpation of the right upper quadrant and epigastrium. There is no tenderness of flanks with percussion. Patient is moving all extremities, no deformity or gross injury. Course 2 Vital Signs: Vital signs: Vital Signs Temperature 97.4 F L 12/04/24 12:40 Pulse Rate 57 L 12/04/24 14:50 Respiratory Rate 16 12/04/24 14:50 Blood Pressure 97/60 12/04/24 14:50 Pulse Oximetry 97 12/04/24 14:50 Oxygen Delivery Me thod Room Air 12/04/24 14:50 MDM - General Adult Medical Decision Making 49 year-old male with history of esophageal strictures requiring dilatation presents with a chief complaint of poor p.o. intake since Tuesday, difficulty with swallowing solids and right upper quadrant abdominal pain. Differential diagnosis includes, but is not limited to, esophageal stricture, esophagitis, pancreatitis, cholecystitis, gastroenteritis, appendicitis, urinary tract infection, pyelonephritis, nephrolithiasis, SBO, diverticulitis, dehydration, other. On initial exam, patient is hemodynamically stable and nontoxic appearing. Patient was evaluated with CBC, CMP, lipase, UA and CT abd/pelvis. Patient was treated with IV morphine, Zofran and fluids. Patient has a normal white blood cell count. Patient is not anemic. Patient does not have any actionable electrolyte abnormalities and has normal kidney function, liver function and only a very mildly elevated lipase which I do not believe is consistent with pancreatitis. Patient has mildly elevated bilirubin. CT scan does not show acute findings. During evaluation, patient experienced brief onset of nonexertional chest pain without radiation that resolved spontaneously before I came back into the room. Screening EKG was done which shows sinus bradycardia, normal axis, mild prolongation of the QTc, no ischemic change. EKG computer reports a STEMI but I disagree with this finding, baseline is a bit slanted in addition there is notching at the end of the QRS complex which may be more consistent with benign reading early repolarization. Discussed this with resistance machine welder setter on-call who reviewed patient's case and EKG with me and agrees that this is not consistent with occlusive disease. On reassessment, patient does not have any chest pain. I discussed patient's presentation with primary care physician who will help arrange an EGD in the next week. At this time, patient is appropriate for outpatient management. Patient and mother at bedside were counseled on supportive care at home, given return precautions and patient was discharged in stable condition. Lab Data 12/04/24 13:43 12/04/24 13:43 Radiology Impressions Abdomen/Pelvis CT 12/04/24 13:33 IMPRESSION: 1. No acute abdominal or pelvic abnormalities. 2. No intrahepatic duct dilatation. 3. No renal obstruction, mild bilateral renal atrophy. 4. No colon or small bowel obstruction. There are a few loops of GI tract which are collapsed. No obstructing process identified. 5. No ascites or adenopathy. 6. Diffuse urinary bladder wall thickening is probably due to under distention. Laboratory Results WBC 6.79 10^3/uL (3.29-11.43) 12/04/24 13:43 RBC 4.56 10^6/uL (3.85-5.65) 12/04/24 13:43 Hgb 14.80 g/dL (11.27-16.99) 12/04/24 13:43 Hct 40.5 % (37-53) 12/04/24 13:43 MCV 88.8 fl (82-101) 12/04/24 13:43 MCH 32.5 pg (27-33) 12/04/24 13:43 MCHC 36.5 g/dL (30-55) 12/04/24 13:43 RDW 13.6 % (12.1-15.1) 12/04/24 13:43 Plt Count 160 10^3/cmm (157-399) 12/04/24 13:43 MPV 9.7 fL (7.4-10.4) 12/04/24 13:43 Neut % (Auto) 77.7 % 12/04/24 13:43 Lymph % (Auto) 14.0 % 12/04/24 13:43 [place] % (Auto) 5.6 % 12/04/24 13:43 Eos % (Auto) 0.1 % 12/04/24 13:43 Baso % (Auto) 2.2 % 12/04/24 13:43 Neut # (Auto) 5.27 10^3/uL (1.8-7.7) 12/04/24 13:43 Lymph # (Auto) 1.0 10^3/uL (0.8-4.8) 12/04/24 13:43 [place] # (Auto) 0.4 10^3/uL (0.2-0.9) 12/04/24 13:43 Eos # (Auto) 0.0 10^3/uL (0.0-0.8) 12/04/24 13:43 Baso # (Auto) 0.2 10^3/uL (0.0-0.1) H 12/04/24 13:43 Nucleated RBC % (auto) 0 % 12/04/24 13:43 Nucleated RBCs # 0.0 /100WBC 12/04/24 13:43 Sodium 136 mmol/L (136-145) 12/04/24 13:43 Potassium 3.7 mmol/L (3.5-5.1) 12/04/24 13:43 Chloride 99 mmol/L (98-107) 12/04/24 13:43 Carbon Dioxide 27 mmol/L (22-29) 12/04/24 13:43 Anion Gap 13.7 (5-19) 12/04/24 13:43 BUN 17 mg/dL (6-20) 12/04/24 13:43 Creatinine 1.2 mg/dL (0.7-1.2) 12/04/24 13:43 GFR Calculation 64.6 mL/min (90-130) L 12/04/24 13:43 Glucose 115 mg/dL (65-115) 12/04/24 13:43 Calculated Osmolality 284 mOsm/kg (285-295) L 12/04/24 13:43 Calcium 9.2 mg/dL (8.5-10.5) 12/04/24 13:43 Total Bilirubin 1.8 mg/dL (0.15-1.2) H 12/04/24 13:43 AST 16 U/L (0-40) 12/04/24 13:43 ALT 10 U/L (0-41) 12/04/24 13:43 Alkaline Phosphatase 82 U/L (40-130) 12/04/24 13:43 Troponin T Baseline 11 ng/L (0-15) 12/04/24 13:43 Troponin T 120 Minute 11.76 ng/L (0-15) 12/04/24 16:20 Delta Troponin T 0.76 ABS# (0-10) 12/04/24 16:20 Total Protein 7.3 g/dL (6.6-8.7) 12/04/24 13:43 Albumin 3.8 g/dL (3.5-5.2) 12/04/24 13:43 Globulin 3.5 g/dL (1.3-4.6) 12/04/24 13:43 Lipase 63 U/L (13-60) H 12/04/24 13:43 All radiology interpretation(s) finalized by discharge Discharge Plan Discharge Patient Disposition: Home Clinical Impression: Difficulty swallowing solids, Acute upper abdominal pain, Chest pain, non- cardiac Condition: Stable Prescriptions: No Action biotin 1,000 mcg Tablet,Chewable 1,000 mcg PO DAILY albuterol sulfate 90 mcg/actuation HFA aerosol inhaler 2 inh INHALATION Q4H PRN (Reason: shortness of breath or wheezing) Qty: 18 0RF levothyroxine [Synthroid] 75 mcg tablet 75 mcg PO DAILY ergocalciferol (vitamin D2) 1,250 mcg (50,000 unit) capsule 50,000 unit PO .Q30D Discharge Orders: Discharge ED (Routine); Ordered 12/04/24 Ordered By: Linda Rodriguez Referrals: Reinaldo Bojorquez NP [Primary Care Provider, Nurse Practitioner] Patient Instructions: Abdominal Pain (ED), Opioid Safety, Pain Management, Patient Portal & Tom Instructions Activity Restrictions/Additional Instructions: Continue to stay hydrated with the packets containing electrolytes provided by your primary care physician. Continue to monitor your condition closely at home. If your condition worsens or additional concerns arise, please return to the emergency department for reassessment. Please talk to your doctor about scheduling an outpatient EGD. Print Language: Danish Coding Level of Care Code ED Director Smb Sales for Nga Rondon
[2024-12-04 13:53] LABS: Hematocrit 40.5 % (37-53); Hemoglobin 14.80 g/dL (11.27-16.99); Mean Corpuscular HGB Conc 36.5 g/dL (30-55); Mean Corpuscular Hemoglobin 32.5 pg (27-33); Mean Corpuscular Volume 88.8 fl (82-101); Nucleated Red Blood Cells % 0 %; Platelet Count 160 10^3/cmm (157-399); Red Blood Count 4.56 10^6/uL (3.85-5.65); White Blood Count 6.79 10^3/uL (3.29-11.43)
[2024-12-04] MEDS: iohexol 350 mg/mL 500 mL Btl (per mL) IV (13:56)
[2024-12-04] MEDS: ondansetron 2 mg/ML SDV 2 mL 4 MG IVP (14:08)
[2024-12-04] MEDS: morphine 4 mg/mL SDV 1 mL IVP (14:08)
[2024-12-04 14:10] LABS: Alanine Aminotransferase 10 U/L (0-41); Albumin Level 3.8 g/dL (3.5-5.2); Alkaline Phosphatase 82 U/L (40-130); Anion Gap 13.7 (5-19); Aspartate Amino Transferase 16 U/L (0-40); Blood Urea Nitrogen 17 mg/dL (6-20); Calcium 9.2 mg/dL (8.5-10.5); Carbon Dioxide 27 mmol/L (22-29); Chloride 99 mmol/L (98-107); Creatinine Clr Calc Pharmacy 64.7936; Globulin 3.5 g/dL (1.3-4.6); Glucose 115 mg/dL (65-115); Lipase 63 U/L (13-60); Osmolality Calculated 284 mOsm/kg (285-295); Potassium 3.7 mmol/L (3.5-5.1); Sodium 136 mmol/L (136-145); Total Protein 7.3 g/dL (6.6-8.7)
[2024-12-04 14:50] VITALS: BP 97/60; PULSE 57; RESP 16; O2SAT 97
--- NOTE | 2024-12-04 15:43 | ECG_ITS ---
[facility] Date[facility] 2024-12[facility]04 Pat Name: Asa Smith Department: Room: Gender: Male Licensed Loan Officer: : 1975 Requested By: Linda Rodriguez Order Number: [id number] Norm MD: Nate Mendoza M.D. Measurements Intervals [place] Rate: 53 P: 62 ID: [id number] QRS: 40 QRSD: 143 T: 55 QT: 494 QTc: 468 Interpretive Statements SINUS BRADYCARDIA WITH FIRST DEGREE AV BLOCK POSSIBLE LEFT ATRIAL ENLARGEMENT [-0.1mV P-WAVE IN V1/V2] INTRAVENTRICULAR CONDUCTION DELAY [130+ ms QRS DURATION] ST ELEVATION, CONSIDER INFERIOR INJURY [MARKED ST ELEVATION W/O NORMALLY INFLECTED T-WAVE IN II/aVF] ACUTE [place] Compared to ECG 07/22/2022 16:17:35 First degree AV block now present Intraventricular conduction delay now present ST (T wave) deviation now present.Sinus rhythm no longer present Myocardial infarct finding still present Electronically Signed On 12-04-2024 20:44:40 CDT by Nate Mendoza M.D. [email or web address]
--- NOTE | 2024-12-04 16:02 | ECG_ITS ---
[facility]: 2024-12-04 Pat Name: Asa Smith Department: Room: Gender: Male Manager Relocation: : 1975 Requested By: Linda Rodriguez Order Number: [id number] Norm MD: Nate Mendoza M.D. Measurements Intervals [place] Rate: 53 P: 69 PA: 229 QRS: 44 QRSD: 134 T: 57 QT: 497 QTc: 470 Interpretive Statements SINUS BRADYCARDIA WITH FIRST DEGREE AV BLOCK POSSIBLE LEFT ATRIAL ENLARGEMENT [-0.1mV P-WAVE IN V1/V2] INTRAVENTRICULAR CONDUCTION DELAY [130+ ms QRS DURATION] ST ELEVATION, CONSIDER INFERIOR INJURY [MARKED ST ELEVATION W/O NORMALLY INFLECTED T-WAVE IN II/aVF] ACUTE [place] Compared to ECG 12/04/2024 15:43:59 No significant changes Electronically Signed On 12-04-2024 20:43:27 CDT by Nate Mendoza M.D. [email or web address]
[2024-12-04 16:37] LABS: Troponin(5th) Baseline 11 ng/L (0-15)
[2024-12-04 16:47] LABS: Troponin 5 2HR 11.76 ng/L (0-15); Troponin 5 2HR Delta 0.76 ABS# (0-10)
[2024-12-04 17:22] VITALS: BP 118/76; PULSE 55; RESP 16; O2SAT 99
== END 2024-12-04 17:15 | disposition home or self-care (01) ==
PROVIDERS: Emergency Medicine; Emergency Provider Emergency Medicine; PCP Nurse Practitioner Family
DX: R13.10 Dysphagia, unspecified (principal); R10.11 Right upper quadrant pain; R07.89 Other chest pain
CPT/HCPCS: 36415; 74177; 80053; 83690; 84484; 85025; 93005; 96374; 96375; 99285; J2270; J2405; J7120

== ENCOUNTER 2025-01-26 17:54 | Emergency (ER) | payer MEDICARE, MEDICAID, SELFPAY ==
[2025-01-26 17:55] VITALS: BP 88/55; PULSE 69; RESP 14; TEMP 36.4; O2SAT 100
--- NOTE | 2025-01-26 17:55 | ECG_ITS ---
[facility] Test Date: 2025-01-26 Pat Name: Asa Smith Department: Room: Gender: Male Remote Sensing Surveyor: : 1975 Requested By: Oziel Cooper Order Number: [id number] Reading MD: MANUEL SOLIMAN Measurements Intervals [place] Rate: 69 P: 79 [place]: 221 QRS: 55 QRSD: 124 T: 60 QT: 443 QTc: 477 Interpretive Statements SINUS RHYTHM WITH FIRST DEGREE AV BLOCK LEFT ATRIAL ENLARGEMENT [-0.15mV P-WAVE IN V1/V2] SEPTAL MYOCARDIAL INFARCTION , PROBABLY OLD [40+ ms Q WAVE IN V1/V2] ST ELEVATION, CONSIDER INFERIOR INJURY [MARKED ST ELEVATION W/O NORMALLY INFLECTED T-WAVE IN II/aVF] ACUTE [place] Compared to ECG 12/04/2024 16:02:54 Sinus bradycardia no longer present Intraventricular conduction delay no longer present Myocardial infarct finding still present ST (T wave) deviation still present Electronically Signed On 01-27-2025 22:25:50 CDT by MANUEL SOLIMAN [email or web address]
--- NOTE | 2025-01-26 17:55 | XRR_ITS ---
PROCEDURE INFORMATION: Exam: XR Chest Exam date and time: 01/26/2025 6:05 PM Age: 49 years old Clinical indication: Cough and dyspnea; Prior surgery; Surgery date: 6+ months; Surgery type: Open heart; Additional info: Dyspnea/cough TECHNIQUE: Imaging protocol: Radiologic exam of the chest. Views: 1 view. COMPARISON: CR (CHEST, ) 07/22/2022 4:24 PM FINDINGS: Lungs: Right lower lobe calcified granuloma. No pulmonary consolidation. Pleural spaces: No pleural effusion or pneumothorax. Heart/Mediastinum: Heart size is within normal limits. Bones/joints: The patient is status post sternotomy. No acute osseous abnormalities are seen. XR/XR chest 1V portable [id number] IMPRESSION: No acute cardiopulmonary disease.
--- NOTE | 2025-01-26 17:56 | W.ED.GENADLT ---
Documented by User: Oziel Muniz DO 01/29/25 16:06 HPI - General Adult General: Chief complaint: Weakness Stated complaint: weakness Time Seen by Provider: 01/26/25 17:55 History of Present Illness: 49-year-old male presents to the emergency room complaining of generalized weakness. Patient has a history of Down syndrome lives at home with mother he has some heart valve disease. He has had problems esophageal stricture in the past. For the last month mother states he has not been eating or drinking well she was able to get him to take down some soup today he did not vomited. He has not had any fever sweats or chills he has been rather hypotensive. No productive cough no chest pain no abdominal pain he feels like he is short of breath the time over sat when he arrived is 100% on room air. Associated symptoms: Deny chest pain, dyspnea or rash Related Data Home Medications ?Medication ?Instructions ?Recorded ?Confirmed levothyroxine 75 mcg tablet 75 mcg PO DAILY 12/04/24 01/29/25 (Synthroid) omeprazole 20 mg capsule,delayed 20 mg PO DAILY 01/29/25 01/29/25 release Previous Rx's ?Medication ?Instructions ?Recorded albuterol sulfate 90 mcg/actuation 2 inh inhalation Q4H PRN shortness 07/22/22 aerosol inhaler of breath or wheezing #18 grams cefdinir 300 mg capsule 300 mg PO BID #14 caps 01/27/25 mirtazapine 7.5 mg tablet 7.5 mg PO DAILY #30 tabs 01/27/25 Allergies Allergy/AdvReac Type Severity Reaction Status Date / Time No Known Allergies Allergy Verified 12/04/24 12:46 Review of Systems Const: Denies: fever(s) or chills Card: Denies: chest pain Resp: Denies: dyspnea GI: Denies: abdominal pain : Denies: dysuria, urinary frequency or urinary urgency Musc: Denies: neck pain or back pain Skin/Breast: Denies: rash PFSH ED PFSH: Medical History Helicobacter pylori gastritis Hypothyroidism Down syndrome Esophageal stricture Surgical History History of open heart surgery 2020 History of colonoscopy History of esophagogastroduodenoscopy (EGD) 2020 History of esophagogastroduodenoscopy (EGD) 10/15/21 Family History Other CAD (coronary artery disease) Diabetes Denies family history of Dementia Anesthesia complication Lung disease Cancer Stroke Social History Smoking and tobacco/nicotine status: never used tobacco/nicotine Alcohol intake: never Substance/Drug Use: never Caregiver/support person: Yes Lives independently: No Household members: other Details: mother Marital status: Single Physical Exam Const: COMMON NORMALS: no acute distress GENERAL APPEARANCE: cooperative and comfortable ORIENTATION/CONSCIOUSNESS: Yes awake, Yes oriented to person, Yes oriented to place and Yes oriented to time HENMT: COMMON NORMALS: normocephalic, atraumatic and hearing grossly normal bilaterally HEAD & SCALP: normocephalic and atraumatic Resp: COMMON NORMALS: normal respiratory effort, No retractions, No use of accessory muscles and clear to auscultation bilaterally AUSCULTATION: clear to auscultation bilaterally Cardio: COMMON NORMALS: regular rhythm RATE: bradycardic RHYTHM: regular rhythm HEART SOUNDS: Murmur heart sound present systolic Intensity: V/ Characteristics: blowing GI: COMMON NORMALS: Soft to palpation and No hepatosplenomegaly present AUSCULTATION: Yes normoactive bowel sounds PALPATION: Yes Soft to palpation, No Tenderness to palpation present (GI), No Guarding due to palpation present (GI) and Yes No hepatosplenomegaly present Extremity: COMMON NORMALS: normal to inspection, capillary refill normal, no clubbing, cyanosis or edema, no calf tenderness and no pedal edema Neuro: SENSORIUM/ORIENTATION: Yes oriented to person, Yes oriented to place and Yes oriented to time Skin: COMMON NORMALS: no rashes or lesions noted GENERAL SKIN EXAM: no rashes or lesions noted Course Vital Signs: Vital signs: Vital Signs Temperature 97.6 F 01/26/25 17:55 Pulse Rate 68 01/26/25 23:54 Respiratory Rate 18 01/26/25 23:54 Blood Pressure 110/71 01/26/25 23:54 Pulse Oximetry 100 01/26/25 23:54 Oxygen Delivery Me thod Room Air 01/26/25 23:54 MDM - General Adult Medical Decision Making Care signed out to Dr. Lee at change of shift. See final notes for diagnosis and disposition. Lab Data 01/26/25 18:01/26/25 18: Radiology Impressions Chest X-Ray 01/26/25 17:55 IMPRESSION: No acute cardiopulmonary disease. Laboratory Results WBC 5.70 10^3/uL (3.29-11.43) 01/26/25 18: RBC 3.85 10^6/uL (3.85-5.65) 01/26/25 18: Hgb 12.20 g/dL (11.27-16.99) 01/26/25 18: Hct 35.3 % (37-53) L 01/26/25: MCV 91.7 fl (82-101) 01/26/25 18: MCH 31.7 pg (27-33) 01/26/25 18: MCHC 34.6 g/dL (30-55) 01/26/25 18: RDW 13.9 % (12.1-15.1) 01/26/25 18: Plt Count 145 10^3/cmm (157-399) L 01/26/25 18: MPV 9.4 fL (7.4-10.4) 01/26/25 18: Neut % (Auto) 77.9 % 01/26/25 18: Lymph % (Auto) 14.7 % 01/26/25 18: [place] % (Auto) 5.4 % 01/26/25 18: Eos % (Auto) 0.4 % 01/26/25 18: Baso % (Auto) 1.4 % 01/26/25 18: Neut # (Auto) 4.44 10^3/uL (1.8-7.7) 01/26/25 18: Lymph # (Auto) 0.8 10^3/uL (0.8-4.8) 01/26/25 18: [place] # (Auto) 0.3 10^3/uL (0.2-0.9) 01/26/25 18: Eos # (Auto) 0.0 10^3/uL (0.0-0.8) 01/26/25 18:01 Baso # (Auto) 0.1 10^3/uL (0.0-0.1) 01/26/25 18: Nucleated RBC % (auto) 0 % 01/26/25 18: Nucleated RBCs # 0.0 /100WBC 01/26/25 18:01 Sodium 137 mmol/L (136-145) 01/26/25 18: Potassium 4.2 mmol/L (3.5-5.1) 01/26/25 18: Chloride 102 mmol/L (98-107) 01/26/25 18: Carbon Dioxide 20 mmol/L (22-29) L 01/26/25 18: Anion Gap 19.2 (5-19) H 01/26/25 18: BUN 23 mg/dL (6-20) H 01/26/25 18: Creatinine 1.2 mg/dL (0.7-1.2) 01/26/25 18: GFR Calculation 64.6 mL/min (90-130) L 01/26/25 18: Glucose 111 mg/dL (65-115) 01/26/25 18: Calculated Osmolality 288 mOsm/kg (285-295) 01/26/25 18: Lactic Acid 2.7 mmol/L (0.5-2.2) H 01/26/25 18: Lactic Acid (Sepsis) 1.9 mmol/L (0.5-2.2) 01/26/25 20:47 Calcium 7.9 mg/dL (8.5-10.5) L 01/26/25 18: Total Bilirubin 1.1 mg/dL (0.15-1.2) 01/26/25 18: AST 15 U/L (0-40) 01/26/25 18: ALT 14 U/L (0-41) 01/26/25 18: Alkaline Phosphatase 53 U/L (40-130) 01/26/25 18: Total Protein 5.8 g/dL (6.6-8.7) L 01/26/25 18: Albumin 3.1 g/dL (3.5-5.2) L 01/26/25 18: Globulin 2.7 g/dL (1.3-4.6) 01/26/25 18:01 Urine Color Kramer (Yellow) A 01/26/25 23:00 Urine Appearance Clear (CLEAR) 01/26/25 23:00 Urine pH 6.0 (5-7) 01/26/25 23:00 Ur Specific Halliday 1.022 (1.005-1.030) 01/26/25 23:00 Urine Protein Trace (Negative) A 01/26/25 23:00 Urine Glucose (UA) Negative (Normal) 01/26/25 23:00 Urine Ketones 1+ (Negative) H 01/26/25 23:00 Urine Blood Negative (Negative) 01/26/25 23:00 Urine Nitrate Negative (Negative) 01/26/25 23:00 Urine Bilirubin Negative (Negative) 01/26/25 23: Urine Urobilinogen 1.0 mg/dL (Negative) 01/26/25 23:00 Ur Leukocyte Esterase 1+ (Negative) A 01/26/25 23:00 Urine RBC 0-2 /hpf (0-2) 01/26/25 23:00 Urine WBC 11-20 /hpf (0-5) H 01/26/25 23:00 Ur Squamous Epith Cells 0-5 /hpf (0-5) 01/26/25 23:00 Amorphous Sediment Not Reportable 01/26/25 23:00 Urine Bacteria None seen /hpf (NONE) 01/26/25 23:00 Hyaline Casts 7.85 /lpf 01/26/25 23:00 Influenza A (PCR) Negative (Negative) 01/26/25 18:01 Influenza Type B (PCR) Negative (Negative) 01/26/25 18:01 RSV (PCR) Negative (Negative) 01/26/25 18:01 SARS-CoV-2 (PCR) Negative (Negative) 01/26/25 18:01 Discharge Plan Discharge Patient Disposition: Home Clinical Impression: Dysphagia, Acute UTI Condition: Stable Prescriptions: New cefdinir 300 mg capsule 300 mg PO BID Qty: 14 0RF mirtazapine 7.5 mg tablet 7.5 mg PO DAILY Qty: 30 0RF No Action albuterol sulfate 90 mcg/actuation HFA aerosol inhaler 2 inh INHALATION Q4H PRN (Reason: shortness of breath or wheezing) Qty: 18 0RF levothyroxine [Synthroid] 75 mcg tablet 75 mcg PO DAILY omeprazole 20 mg capsule,delayed release(/EC) 20 mg PO DAILY Discharge Orders: Discharge ED (Routine); Ordered 01/27/25 Ordered By: Timothy Lee Referrals: Vanna Guillen MD [Referring, Internal Medicine] - 4-7 days Reinaldo Bojorquez NP [Referring, Nurse Practitioner] Patient Instructions: Dehydration (ED), Urinary Tract Infection in Men (ED), Opioid Safety, Pain Management, Patient Portal & Tom Instructions Activity Restrictions/Additional Instructions: Antibiotics as directed. Stay hydrated is much as possible. Medication prescribed may help appetite. Call your doctor Tuesday to follow-up to see if she would like you to stay on this. Return for any problems such as fever despite 2-3 doses of antibiotics, worsening mental status, vomiting liquids or medications, any other concerning symptoms. Print Language: Indonesian Coding Level of Care Code ED French Binder for Chg Fwd Documented by User: Timothy Lee DO 01/27/25 01:08 HPI - General Adult General: Chief complaint: Weakness Stated complaint: weakness Time Seen by Provider: 01/26/25 17:55 Related Data Home Medications ?Medication ?Instructions ?Recorded ?Confirmed levothyroxine 75 mcg tablet 75 mcg PO DAILY 12/04/24 01/29/25 (Synthroid) omeprazole 20 mg capsule,delayed 20 mg PO DAILY 01/29/25 01/29/25 release Previous Rx's ?Medication ?Instructions ?Recorded albuterol sulfate 90 mcg/actuation 2 inh inhalation Q4H PRN shortness 07/22/22 aerosol inhaler of breath or wheezing #18 grams cefdinir 300 mg capsule 300 mg PO BID #14 caps 01/27/25 mirtazapine 7.5 mg tablet 7.5 mg PO DAILY #30 tabs 01/27/25 Allergies Allergy/AdvReac Type Severity Reaction Status Date / Time No Known Allergies Allergy Verified 12/04/24 12:46 [facility] ED PFS: Medical History Helicobacter pylori gastritis Hypothyroidism Down syndrome Esophageal stricture Surgical History History of open heart surgery 2019 History of colonoscopy History of esophagogastroduodenoscopy (EGD) 2019 History of esophagogastroduodenoscopy (EGD) 10/15/21 Family History Other CAD (coronary artery disease) Diabetes Denies family history of Dementia Anesthesia complication Lung disease Cancer Stroke Social History Smoking and tobacco/nicotine status: never used tobacco/nicotine Alcohol intake: never Substance/Drug Use: never Caregiver/support person: Yes Lives independently: No Household members: other Details: mother Marital status: Single Course Vital Signs: Vital signs: Vital Signs Temperature 97.6 F 01/26/25 17:55 Pulse Rate 68 01/26/25 23:54 Respiratory Rate 18 01/26/25 23:54 Blood Pressure 110/71 01/26/25 23:54 Pulse Oximetry 100 01/26/25 23:54 Oxygen Delivery Me thod Room Air 01/26/25 23:54 MDM - General Adult Medical Decision Making Care signed out to Dr. Lee at change of shift. See final notes for diagnosis and disposition. This gentleman initially presented with a low blood pressure. He had not vomited. He had significant decreased oral intake. He has a history of esophageal dilatation. He was last dilated 01/05. He is tolerating solids, but his mother states that he just will not eat. He has lost quite a bit of weight. He received 3 L here, as he was having trouble urinating. He did eventually produce urine. His creatinine is 1.2 BUN of 23. His bicarb is 20. CBC is not remarkable. Chest x-ray is negative. He has a urinary tract infection on urinalysis. He is given IV Rocephin for this. No vomiting here. He is improved blood pressure otero and weakness otero after fluid bolus. His mom asked about a appetite stimulant. I be placed on a small dose of mirtazapine. I will be up to his primary care provider and if she wants to continue this. He will be placed on cefdinir for continued treatment of UTI. He will need repeat urinalysis to ensure he is clearing UTI. Return for any worsening symptoms. Stable for discharge at this point Lab Data 01/26/25 18:01/26/25 18: Radiology Impressions Chest X-Ray 01/26/25 17:55 IMPRESSION: No acute cardiopulmonary disease. Laboratory Results WBC 5.70 10^3/uL (3.29-11.43) 01/26/25: RBC 3.85 10^6/uL (3.85-5.65) 01/26/25 18: Hgb 12.20 g/dL (11.27-16.99) 01/26/25: Hct 35.3 % (37-53) L 01/26/25: MCV 91.7 fl (82-101) 01/26/25: MCH 31.7 pg (27-33) 01/26/25: MCHC 34.6 g/dL (30-55) 01/26/25: RDW 13.9 % (12.1-15.1) 01/26/25: Plt Count 145 10^3/cmm (157-399) L 01/26/25: MPV 9.4 fL (7.4-10.4) 01/26/25 18: Neut % (Auto) 77.9 % 01/26/25: Lymph % (Auto) 14.7 % 01/26/25 18: [place] % (Auto) 5.4 % 01/26/25: Eos % (Auto) 0.4 % 01/26/25 18: Baso % (Auto) 1.4 % 01/26/25: Neut # (Auto) 4.44 10^3/uL (1.8-7.7) 01/26/25: Lymph # (Auto) 0.8 10^3/uL (0.8-4.8) 01/26/25 18: [place] # (Auto) 0.3 10^3/uL (0.2-0.9) 01/26/25 18: Eos # (Auto) 0.0 10^3/uL (0.0-0.8) 01/26/25 18: Baso # (Auto) 0.1 10^3/uL (0.0-0.1) 01/26/25 18: Nucleated RBC % (auto) 0 % 01/26/25 18: Nucleated RBCs # 0.0 /100WBC 01/26/25 18:01 Sodium 137 mmol/L (136-145) 01/26/25 18: Potassium 4.2 mmol/L (3.5-5.1) 01/26/25 18: Chloride 102 mmol/L (98-107) 01/26/25 18: Carbon Dioxide 20 mmol/L (22-29) L 01/26/25 18: Anion Gap 19.2 (5-19) H 01/26/25 18: BUN 23 mg/dL (6-20) H 01/26/25 18: Creatinine 1.2 mg/dL (0.7-1.2) 01/26/25 18: GFR Calculation 64.6 mL/min (90-130) L 01/26/25 18: Glucose 111 mg/dL (65-115) 01/26/25 18: Calculated Osmolality 288 mOsm/kg (285-295) 01/26/25 18: Lactic Acid 2.7 mmol/L (0.5-2.2) H 01/26/25 18: Lactic Acid (Sepsis) 1.9 mmol/L (0.5-2.2) 01/26/25 20:47 Calcium 7.9 mg/dL (8.5-10.5) L 01/26/25 18: Total Bilirubin 1.1 mg/dL (0.15-1.2) 01/26/25 18: AST 15 U/L (0-40) 01/26/25 18: ALT 14 U/L (0-41) 01/26/25 18: Alkaline Phosphatase 53 U/L (40-130) 01/26/25 18: Total Protein 5.8 g/dL (6.6-8.7) L 01/26/25 18: Albumin 3.1 g/dL (3.5-5.2) L 01/26/25 18: Globulin 2.7 g/dL (1.3-4.6) 01/26/25 18:01 Urine Color Kramer (Yellow) A 01/26/25 23:00 Urine Appearance Clear (CLEAR) 01/26/25 23:00 Urine pH 6.0 (5-7) 01/26/25 23:00 Ur Specific [place] 1.022 (1.005-1.030) 01/26/25 23:00 Urine Protein Trace (Negative) A 01/26/25 23:00 Urine Glucose (UA) Negative (Normal) 01/26/25 23:00 Urine Ketones 1+ (Negative) H 01/26/25 23:00 Urine Blood Negative (Negative) 01/26/25 23:00 Urine Nitrate Negative (Negative) 01/26/25 23:00 Urine Bilirubin Negative (Negative) 01/26/25 23: Urine Urobilinogen 1.0 mg/dL (Negative) 01/26/25 23:00 Ur Leukocyte Esterase 1+ (Negative) A 01/26/25 23:00 Urine RBC 0-2 /hpf (0-2) 01/26/25 23:00 Urine WBC 11-20 /hpf (0-5) H 01/26/25 23:00 Ur Squamous Epith Cells 0-5 /hpf (0-5) 01/26/25 23:00 Amorphous Sediment Not Reportable 01/26/25 23:00 Urine Bacteria None seen /hpf (NONE) 01/26/25 23:00 Hyaline Casts 7.85 /lpf 01/26/25 23:00 Influenza A (PCR) Negative (Negative) 01/26/25 18:01 Influenza Type B (PCR) Negative (Negative) 01/26/25 18:01 RSV (PCR) Negative (Negative) 01/26/25 18:01 SARS-CoV-2 (PCR) Negative (Negative) 01/26/25 18:01 All radiology interpretation(s) finalized by discharge Discharge Plan Discharge Patient Disposition: Home Clinical Impression: Dysphagia, Acute UTI Condition: Stable Prescriptions: New cefdinir 300 mg capsule 300 mg PO BID Qty: 14 0RF mirtazapine 7.5 mg tablet 7.5 mg PO DAILY Qty: 30 0RF No Action albuterol sulfate 90 mcg/actuation HFA aerosol inhaler 2 inh INHALATION Q4H PRN (Reason: shortness of breath or wheezing) Qty: 18 0RF levothyroxine [Synthroid] 75 mcg tablet 75 mcg PO DAILY omeprazole 20 mg capsule,delayed release(DR/EC) 20 mg PO DAILY Discharge Orders: Discharge ED (Routine); Ordered 01/27/25 Ordered By: Timothy Lee Referrals: Vanna Guillen MD [Referring, Internal Medicine] - 4-7 days Reinaldo Bojorquez NP [Referring, Nurse Practitioner] Patient Instructions: Dehydration (ED), Urinary Tract Infection in Men (ED), Opioid Safety, Pain Management, Patient Portal & Tom Instructions Activity Restrictions/Additional Instructions: Antibiotics as directed. Stay hydrated is much as possible. Medication prescribed may help appetite. Call your doctor Tuesday to follow-up to see if she would like you to stay on this. Return for any problems such as fever despite 2-3 doses of antibiotics, worsening mental status, vomiting liquids or medications, any other concerning symptoms. Print Language: Indonesian Coding Level of Care Code ED French Binder for Nga Rondon
--- OUTSIDE RECORDS SUMMARY | 2025-01-26 18:01 | XMS_ITS | Clinical Summary ---
Author Organization 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 Name Role Phone Unavailable Primary Care Provider [...] on file Legal Sex Male 5:46 PM [employer] Gender Identity Not on file Sexual Orientation Not on file Last Filed Vital Signs Vital Sign Reading Time Taken Comments Blood Pressure 106/63 03/17/2023 6:45 PM [employer] Pulse 66 03/17/2023 6:50 PM [employer] Temperature 36.8 C (98.2 F) 03/17/2023 5:50 PM [employer] Respiratory Rate 18 03/17/2023 5:50 PM [employer] Oxygen Saturation 99% 03/17/2023 6:50 PM [employer] Inhaled Oxygen Concentration - - Weight 63.5 kg (140 lb) 03/17/2023 5:50 PM [employer] Height 165.1 cm (5' 5 ) 03/17/2023 5:50 PM [employer] Body Mass Index 23.3 03/17/2023 5:50 PM [employer] Plan of Treatment Health Maintenance Due Date Last Done Comments DTAP/TDAP/TD VACCINES (1 - Tdap) 02/27/1995 HEPATITIS B VACCINES (1 of 3 - 19+ 3-dose series) 02/03 COLORECTAL SCREENING 02/27/2021 Colorectal Cancer Screening 02/27/2021 FIT-DNA Q 3 years 02/27/2021 FIT/FOBT Q 1 year 02/27/2021 Flex Sig/CT Colonography Q 5 years 02/27/2021 INFLUENZA VACCINE (#1) 2024 Insurance MEDICAID [place]
--- OUTSIDE RECORDS SUMMARY | 2025-01-26 18:01 | XMS_ITS ---
Author Organization Unknown Results OrderDate OrderTestName ResultName ResultDate Value Units Range AbnormalFlag ResultStatus ObservationNotes TestCode ResultCode DateRecorded AccessionNumber DiagnosticSectionCode DiagnosticSectionName Sequence Interpretation Custom CollectionStartDate CollectionEndDate 04/19/2024 05:58:00 CMP14+CBC/D/Plt+TSH albumin, serum 2393-30-05W49:58:00 3.7 g/dL 4.1-5.1 L F CMP14+CBC/D/Plt+TSH Coding albumin, serum 04/19/2024 05:58:0005 03:21:66YWT83+CBC/D/Plt+TSHalbumin, serum 4476-06-04N09:21:003.6g/dL4.1-5.1LF Coding CMP14+CBC/D/Plt+TSH Coding albumin, serum 08/24/2024 03:21:0009 03:19:40FZJ95+CBC/D/Plt+TSHalbumin, serum 7999-80-21C98:19:004.0g/dL4.1-5.1LF Coding CMP14+CBC/D/Plt+TSH Coding albumin, serum 12/12/2024 03:19:001 22:48:25NQD46+CBC/D/Plt+TSHalkaline phosphatase, ymazo8220-39-55T18:48:0095units/D94-911X Coding CMP14+CBC/D/Plt+TSH Coding alkaline phosphatase, serum 01/27/2023 22:48:0002 05:50:34BEG90+CBC/D/Plt+TSHalkaline phosphatase, ujhwk3506-69-02F32:50:0099units/F98-852W Coding CMP14+CBC/D/Plt+TSH Coding alkaline phosphatase, serum 05/13/2023 05:50:001 03:38:40DBE00+CBC/D/Plt+TSHalkaline phosphatase, yiaqk6416-85-65H41:38:04278obket/A12-006BL Coding CMP14+CBC/D/Plt+TSH Coding alkaline phosphatase, serum 01/06/2024 03:38:0001 06:00:61LRW00+CBC/D/Plt+TSHalkaline phosphatase, jqaxp2609-78-92N04:00:71335ogghp/L54-671P Coding CMP14+CBC/D/Plt+TSH Coding alkaline phosphatase, serum 04/19/2024 06:00:0005 03:21:30WGG34+CBC/D/Plt+TSHalkaline phosphatase, bmmxt4809-51-84S82:21:10021vzpyd/B10-922S Coding CMP14+CBC/D/Plt+TSH Coding alkaline phosphatase, serum 08/24/2024 03:21:00012/12/2024 03:19:00PHJ18+CBC/D/Plt+TSHalkaline phosphatase, hiete3850-43-29Q36:19:0088units/E58-229Y Coding CMP14+CBC/D/Plt+TSH Coding alkaline phosphatase, serum 12/12/2024 03:19:001 03:34:04MNP33+CBC/D/Plt+TSHalbumin, serum 2187-20-94V36:34:003.9g/dL4.1-5.1LF Coding CMP14+CBC/D/Plt+TSH Coding albumin, serum 01/06/2024 03:34:0002 05:45:67HEO60+CBC/D/Plt+TSHalbumin, serum 3815-73-21M02:45:003.4g/dL4.1-5.1LF Coding CMP14+CBC/D/Plt+TSH Coding albumin, serum 05/13/2023 05:45:001 22:47:80OIX25+CBC/D/Plt+TSHalbumin, serum 0578-90-00Z62:47:003.4g/dL4.1-5.1LF Coding CMP14+CBC/D/Plt+TSH Coding albumin, serum 01/27/2023 22:47: 04:25:00Vitamin G43P-36, buurf2951-81-18T75:25:00 308pg/hZ498-2932G Coding Vitamin B12 Coding B-12, serum 08/24/2024 04:25:001 00:39:02JDG44+CBC/D/Plt+TSHblood glucose, random 2355-95-30K31:39:0092mg/fC72-00Y Coding CMP14+CBC/D/Plt+TSH Coding blood glucose, random 01/28/2023 00:39:0002 05:45:43IGR62+CBC/D/Plt+TSHblood glucose, random 3110-83-38X39:45:39733ca/oW64-78VJ Coding CMP14+CBC/D/Plt+TSH Coding blood glucose, random 05/13/2023 05:45:0010 03:35:98FFF22+CBC/D/Plt+TSHblood glucose, random 2350-70-22K63:35:0082mg/iZ75-16N Coding CMP14+CBC/D/Plt+TSH Coding blood glucose, random 01/06/2024 03:35:0001 05:28:12LTM51+CBC/D/Plt+TSHblood glucose, random 8593-15-55Z49:28:0092mg/xH60-46U Coding CMP14+CBC/D/Plt+TSH Coding blood glucose, random 04/19/2024 05:28:0005 03:21:25ACO35+CBC/D/Plt+TSHblood glucose, random 6364-92-30O43:21:0090mg/iV34-64C Coding CMP14+CBC/D/Plt+TSH Coding blood glucose, random 08/24/2024 03:21:0009 03:19:30UNO42+CBC/D/Plt+TSHblood glucose, random 9230-59-96Z43:19:85973nh/gO15-71XG Coding CMP14+CBC/D/Plt+TSH Coding blood glucose, random 12/12/2024 03:19:0010 22:49:50VFQ54+CBC/D/Plt+TSHurea nitrogen, blood 7441-94-78U55:49:0010mg/dL6-24F Coding CMP14+CBC/D/Plt+TSH Coding urea nitrogen, blood 01/27/2023 22:49:0002 05:47:62LNR58+CBC/D/Plt+TSHurea nitrogen, blood 3050-05-31U48:47:0010mg/dL6-24F Coding CMP14+CBC/D/Plt+TSH Coding urea nitrogen, blood 05/13/2023 05:47:0010 03:35:96MKS16+CBC/D/Plt+TSHurea nitrogen, blood 9896-62-48C55:35:0010mg/dL6-24F Coding CMP14+CBC/D/Plt+TSH Coding urea nitrogen, blood 01/06/2024 03:35:0001 05:58:40HTH54+CBC/D/Plt+TSHurea nitrogen, blood 4345-52-05Y08:58:008mg/dL6-24F Coding CMP14+CBC/D/Plt+TSH Coding urea nitrogen, blood 04/19/2024 05:58:0005 03:21:91ETJ26+CBC/D/Plt+TSHurea nitrogen, blood 8182-86-66R58:21:007mg/dL6-24F Coding CMP14+CBC/D/Plt+TSH Coding urea nitrogen, blood 08/24/2024 03:21:0009 03:19:13TEN53+CBC/D/Plt+TSHurea nitrogen, blood 5864-15-24M46:19:0012mg/dL6-24F Coding CMP14+CBC/D/Plt+TSH Coding urea nitrogen, blood 12/12/2024 03:19:001 00:40:44UBS17+CBC/D/Plt+TSHcalcium, serum 6019-16-29R34:40:008.8mg/dL8.7-10.2F Coding CMP14+CBC/D/Plt+TSH Coding calcium, serum 01/28/2023 00:40: 05:43:77YFC96+CBC/D/Plt+TSHcalcium, serum 8322-64-17M24:43:008.7mg/dL8.7-10.2F Coding CMP14+CBC/D/Plt+TSH Coding calcium, serum 05/13/2023 05:43:00012/12/2024 03:19:93IOL38+CBC/D/Plt+TSHcalcium, serum 4226-40-24Z70:19:009.0mg/dL8.7-10.2F Coding CMP14+CBC/D/Plt+TSH Coding calcium, serum 12/12/2024 03:19:001 03:34:98IIK00+CBC/D/Plt+TSHcalcium, serum 5576-25-29O10:34:008.8mg/dL8.7-10.2F Coding CMP14+CBC/D/Plt+TSH Coding calcium, serum 01/06/2024 03:34:0001 05:56:08WEL79+CBC/D/Plt+TSHcalcium, serum 9683-43-86Z76:56:008.8mg/dL8.7-10.2F Coding CMP14+CBC/D/Plt+TSH Coding calcium, serum 04/19/2024 05:56:0005 03:21:71CIK28+CBC/D/Plt+TSHcalcium, serum 4654-79-94V47:21:008.8mg/dL8.7-10.2F Coding CMP14+CBC/D/Plt+TSH Coding calcium, serum 08/24/2024 03:21:001 22:38:10CJT53+CBC/D/Plt+TSHchloride, serum 9600-81-03Q34:38:73126stmi/W24-274Z Coding CMP14+CBC/D/Plt+TSH Coding chloride, serum 01/27/2023 22:38:0002 05:48:75RGB40+CBC/D/Plt+TSHchloride, serum 4456-26-01T69:48:55632asuk/U47-025E Coding CMP14+CBC/D/Plt+TSH Coding chloride, serum 05/13/2023 05:48:001 03:38:59UQJ35+CBC/D/Plt+TSHchloride, serum 9749-68-75O02:38:50104moky/T09-476G Coding CMP14+CBC/D/Plt+TSH Coding chloride, serum 01/06/2024 03:38: 05:49:79GDM15+CBC/D/Plt+TSHchloride, serum 5193-15-83C39:49:18475webk/X67-658T Coding CMP14+CBC/D/Plt+TSH Coding chloride, serum 04/19/2024 05:49:0005 03:21:60CZH20+CBC/D/Plt+TSHchloride, serum 0799-55-70A43:21:29400zxil/R23-745H Coding CMP14+CBC/D/Plt+TSH Coding chloride, serum 08/24/2024 03:21:00012/12/2024 03:19:30PKD93+CBC/D/Plt+TSHchloride, serum 7346-28-79W51:19:0096mmol/J04-954R Coding CMP14+CBC/D/Plt+TSH Coding chloride, serum 12/12/2024 03:19:001 22:52:00Lipid Panel w/ Chol/HDL Ratiocholesterol, tnqin3896-69-55H16:52:49839dc/tN678-453U Coding Lipid Panel w/ Chol/HDL Rati o Coding cholesterol, serum 01/27/2023 22:52:00012/12/2024 03:19:77QWZ93+CBC/D/Plt+TSHcarbon dioxide, venous wrrtr5744-53-43D66:19:0024mmol/L20-29F Coding CMP14+CBC/D/Plt+TSH Coding carbon dioxide, venous blood 12/12/2024 03:19: 03:21:51AGI52+CBC/D/Plt+TSHcarbon dioxide, venous ifawk4122-71-31W35:21:0021mmol/L20-29F Coding CMP14+CBC/D/Plt+TSH Coding carbon dioxide, venous blood 08/24/2024 03:21: 05:58:27KWJ13+CBC/D/Plt+TSHcarbon dioxide, venous rnhjd9266-40-95T12:58:0026mmol/L20-29F Coding CMP14+CBC/D/Plt+TSH Coding carbon dioxide, venous blood 04/19/2024 05:58:001 03:16:41LKM59+CBC/D/Plt+TSHcarbon dioxide, venous buwdy2591-39-47L71:16:0023mmol/L20-29F Coding CMP14+CBC/D/Plt+TSH Coding carbon dioxide, venous blood 01/06/2024 03:16:001 00:40:55RBQ55+CBC/D/Plt+TSHcarbon dioxide, venous nuzxo0141-16-91T05:40:0027mmol/L20-29F Coding CMP14+CBC/D/Plt+TSH Coding carbon dioxide, venous blood 01/28/2023 00:40:0002 05:45:47SUI21+CBC/D/Plt+TSHcarbon dioxide, venous ielij2514-13-56Q81:45:0024mmol/L20-29F Coding CMP14+CBC/D/Plt+TSH Coding carbon dioxide, venous blood 05/13/2023 05:45:001 22:50:70HOX60+CBC/D/Plt+TSHcreatinine, serum 1533-43-22Q09:50:001.22mg/dL0.76-1.27F Coding CMP14+CBC/D/Plt+TSH Coding creatinine, serum 01/27/2023 22:50:001 08:38:00Vitamin Y21K-07, tkieh3643-54-89E38:38:00 285pg/iZ767-4411U Coding Vitamin B12 Coding B-12, serum 01/06/2024 08:38:00010/01/2022 06:57:00Vitamin L35B-54, xzdgu4027-60-21N61:57:00 >2000 pg/mLpg/nF484-3053TJ Coding Vitamin B12 Coding B-12, serum 10/01/2022 06:57:001 23:15:00Vitamin C04B-73, srujg2433-84-47A80:15:00 337pg/mK523-7945W Coding Vitamin B12 Coding B-12, serum 01/27/2023 23:15: 05:52:48ADH75+CBC/D/Plt+TSHcreatinine, serum 0524-97-20L29:52:001.18mg/dL0.76-1.27F Coding CMP14+CBC/D/Plt+TSH Coding creatinine, serum 05/13/2023 05:52:0010 03:43:57MZK15+CBC/D/Plt+TSHcreatinine, serum 5001-32-81I45:43:001.40mg/dL0.76-1.27HF Coding CMP14+CBC/D/Plt+TSH Coding creatinine, serum 01/06/2024 03:43:0001 05:28:32VKX72+CBC/D/Plt+TSHcreatinine, serum 7846-42-83T05:28:001.33mg/dL0.76-1.27HF Coding CMP14+CBC/D/Plt+TSH Coding creatinine, serum 04/19/2024 05:28:0005 03:23:01ZNK32+CBC/D/Plt+TSHcreatinine, serum 0608-32-35F81:23:001.52mg/dL0.76-1.27HF Coding CMP14+CBC/D/Plt+TSH Coding creatinine, serum 08/24/2024 03:23:00012/12/2024 03:19:72GOQ18+CBC/D/Plt+TSHcreatinine, serum 9738-07-69A74:19:001.37mg/dL0.76-1.27HF Coding CMP14+CBC/D/Plt+TSH Coding creatinine, serum 12/12/2024 03:19: 04:14:00Thyroxine (T4) Free, Directthyroxine, serum, cibt1769-59-59B66:14:001.43ng/dL0.82-1.77F Coding Thyroxine (T4) Free, Direct Coding thyroxine, serum, free 08/24/2024 04:14:00012/12/2024 22:12:00Thyroxine (T4) Free, Directthyroxine, serum, itkv4381-39-27I89:12:001.77ng/dL0.82-1.77F Coding Thyroxine (T4) Free, Direct Coding thyroxine, serum, free 12/12/2024 22:12:001 08:31:00Thyroxine (T4) Free, Directthyroxine, serum, bzkw5999-36-36D83:31:001.67ng/dL0.82-1.77F Coding Thyroxine (T4) Free, Direct Coding thyroxine, serum, free 01/06/2024 08:31: 08:40:00Thyroxine (T4) Free, Directthyroxine, serum, mivp1326-17-69Q39:40:001.75ng/dL0.82-1.77F Coding Thyroxine (T4) Free, Direct Coding thyroxine, serum, free 04/19/2024 08:40: 05:52:00Thyroxine (T4) Free, Directthyroxine, serum, zyxc0581-44-59Z91:52:001.41ng/dL0.82-1.77F Coding Thyroxine (T4) Free, Direct Coding thyroxine, serum, free 05/13/2023 05:52: 08:04:00TSH+Free M7zfatywjfe, serum, free 2586-99-49G24:04:001.36ng/dL0.82-1.77F Coding TSH+Free T4 Coding thyroxine, serum, free 07/09/2023 08:04:00010/01/2022 06:48:00TSH+Free Q1ykchebbmj, serum, free 5181-56-93R32:48:001.67ng/dL0.82-1.77F Coding TSH+Free T4 Coding thyroxine, serum, free 10/01/2022 06:48:001 23:06:00TSH+Free G3xysziwvee, serum, free 9257-90-04W13:06:002.12ng/dL0.82-1.77HF Coding TSH+Free T4 Coding thyroxine, serum, free 01/27/2023 23:06:00105/20/2022 06:57:00TSH+Free O6gtcvaimgh, serum, free 8284-65-64G33:57:001.72ng/dL0.82-1.77F Coding TSH+Free T4 Coding thyroxine, serum, free 03/19/2023 06:57:001 22:54:00Lipid Panel w/ Chol/HDL RatioHDL cholesterol, mlinn1133-37-71R26:54:0046mg/dL>39F Coding Lipid Panel w/ Chol/HDL Rati o Coding HDL cholesterol, serum 01/27/2023 22:54:00105/27/2021 01:05:00TSHthyroid stimulating hormone, serum 0173-75-08Z91:05:000.253microintl units/mL0.450-4.500LF Coding TSH Coding thyroid stimulating hormone, serum 03/26/2022 01:05: 08:04:00TSHthyroid stimulating hormone, serum 1221-19-95Z06:04:000.109microintl units/mL0.450-4.500LF Coding TSH Coding thyroid stimulating hormone, serum 06/18/2022 08:04: 08:24:00TSHthyroid stimulating hormone, serum 3646-80-79W84:24:002.620microintl units/mL0.450-4.500F Coding TSH Coding thyroid stimulating hormone, serum 07/31/2022 08:24:00009/03/2022 06:39:00TSHthyroid stimulating hormone, serum 0235-48-93A04:39:0010.700microintl units/mL0.450-4.500HF Coding TSH Coding thyroid stimulating hormone, serum 09/03/2022 06:39:00010/01/2022 06:48:00TSH+Free V0rjiodxz stimulating hormone, gkwsy0621-07-86B47:48:000.055microintl units/mL0.450-4.500LF Coding TSH+Free T4 Coding thyroid stimulating hormone, serum 10/01/2022 06:48:00012/10/2022 08:05:00TSHthyroid stimulating hormone, serum 4235-47-57N40:05:000.013microintl units/mL0.450-4.500LF Coding TSH Coding thyroid stimulating hormone, serum 12/10/2022 08:05: 08:40:06BCK13+CBC/D/Plt+TSHthyroid stimulating hormone, qhcle3026-70-37B06:40:000.306microintl units/mL0.450-4.500LF Coding CMP14+CBC/D/Plt+TSH Coding thyroid stimulating hormone, serum 04/19/2024 08:40:0005 04:14:54IWY65+CBC/D/Plt+TSHthyroid stimulating hormone, adpkt2226-74-77A80:14:000.032microintl units/mL0.450-4.500LF Coding CMP14+CBC/D/Plt+TSH Coding thyroid stimulating hormone, serum 08/24/2024 04:14:00012/12/2024 22:54:43SIS77+CBC/D/Plt+TSHthyroid stimulating hormone, lbjcu7958-26-97M99:54:000.116microintl units/mL0.450-4.500LF Coding CMP14+CBC/D/Plt+TSH Coding thyroid stimulating hormone, serum 12/12/2024 22:54:00001/01/2023 08:04:00TSHthyroid stimulating hormone, serum 0255-63-63R12:04:000.019microintl units/mL0.450-4.500LF Coding TSH Coding thyroid stimulating hormone, serum 01/01/2023 08:04:0010/ 23:05:67KMW95+CBC/D/Plt+TSHthyroid stimulating hormone, mafvj8280-53-21Z87:05:00<0.005 uIU/mLmicrointl units/mL0.450-4.500LF Coding CMP14+CBC/D/Plt+TSH Coding thyroid stimulating hormone, serum 01/27/2023 23:05:00105/20/2022 06:57:00TSH+Free Q0xkkpnfj stimulating hormone, djsqm2790-97-51N45:57:000.006microintl units/mL0.450-4.500LF Coding TSH+Free T4 Coding thyroid stimulating hormone, serum 03/19/2023 06:57: 05:52:42OLR44+CBC/D/Plt+TSHthyroid stimulating hormone, ymqlu0562-74-30N43:52:000.016microintl units/mL0.450-4.500LF Coding CMP14+CBC/D/Plt+TSH Coding thyroid stimulating hormone, serum 05/13/2023 05:52:0004 08:04:00TSH+Free U8cwwsxng stimulating hormone, jubsh3538-08-41B74:04:000.027microintl units/mL0.450-4.500LF Coding TSH+Free T4 Coding thyroid stimulating hormone, serum 07/09/2023 08:04:001 08:31:69DCY54+CBC/D/Plt+TSHthyroid stimulating hormone, odccg6341-99-45V26:31:000.046microintl units/mL0.450-4.500LF Coding CMP14+CBC/D/Plt+TSH Coding thyroid stimulating hormone, serum 01/06/2024 08:31:00012/12/2024 03:19:91TAS50+CBC/D/Plt+TSHpotassium, serum 6994-83-13H23:19:003.5mmol/L3.5-5.2F Coding CMP14+CBC/D/Plt+TSH Coding potassium, serum 12/12/2024 03:19:0005 03:22:28PAA19+CBC/D/Plt+TSHpotassium, serum 5839-33-97P70:22:004.0mmol/L3.5-5.2F Coding CMP14+CBC/D/Plt+TSH Coding potassium, serum 08/24/2024 03:22: 05:50:51TUW67+CBC/D/Plt+TSHpotassium, serum 5832-14-34P43:50:004.5mmol/L3.5-5.2F Coding CMP14+CBC/D/Plt+TSH Coding potassium, serum 04/19/2024 05:50:001 03:40:71UVL58+CBC/D/Plt+TSHpotassium, serum 2651-12-07B78:40:003.9mmol/L3.5-5.2F Coding CMP14+CBC/D/Plt+TSH Coding potassium, serum 01/06/2024 03:40: 05:53:25OOT11+CBC/D/Plt+TSHpotassium, serum 6793-63-48D81:53:004.0mmol/L3.5-5.2F Coding CMP14+CBC/D/Plt+TSH Coding potassium, serum 05/13/2023 05:53:001 22:39:59MWG30+CBC/D/Plt+TSHpotassium, serum 3142-21-62S69:39:004.4mmol/L3.5-5.2F Coding CMP14+CBC/D/Plt+TSH Coding potassium, serum 01/27/2023 22:39:001 00:39:93SDF86+CBC/D/Plt+TSHprotein, total, serum 3494-65-89L52:39:006.2g/dL6.0-8.5F Coding CMP14+CBC/D/Plt+TSH Coding protein, total, serum 01/28/2023 00:39: 05:49:60OOG90+CBC/D/Plt+TSHprotein, total, serum 5940-94-89S32:49:006.7g/dL6.0-8.5F Coding CMP14+CBC/D/Plt+TSH Coding protein, total, serum 05/13/2023 05:49:001 03:38:15SYT12+CBC/D/Plt+TSHprotein, total, serum 5716-87-78Y74:38:007.2g/dL6.0-8.5F Coding CMP14+CBC/D/Plt+TSH Coding protein, total, serum 01/06/2024 03:38:0001 05:58:28RZW38+CBC/D/Plt+TSHprotein, total, serum 4697-38-88W22:58:006.6g/dL6.0-8.5F Coding CMP14+CBC/D/Plt+TSH Coding protein, total, serum 04/19/2024 05:58:0005 03:23:48UWD90+CBC/D/Plt+TSHprotein, total, serum 4219-74-75V90:23:006.8g/dL6.0-8.5F Coding CMP14+CBC/D/Plt+TSH Coding protein, total, serum 08/24/2024 03:23:00012/12/2024 03:19:16XDL32+CBC/D/Plt+TSHprotein, total, serum 9356-05-22O65:19:006.9g/dL6.0-8.5F Coding CMP14+CBC/D/Plt+TSH Coding protein, total, serum 12/12/2024 03:19:001 22:48:82ILS80+CBC/D/Plt+TSHaspartate aminotransferase (SGOT), domfd8371-57-65H59:48:0018units/L0-40F Coding CMP14+CBC/D/Plt+TSH Coding aspartate aminotransferase ( SGOT), serum 01/27/2023 22:48: 05:50:44SJG82+CBC/D/Plt+TSHaspartate aminotransferase (SGOT), wlvcr5806-62-23N46:50:0020units/L0-40F Coding CMP14+CBC/D/Plt+TSH Coding aspartate aminotransferase ( SGOT), serum 05/13/2023 05:50:001 03:43:46JTK32+CBC/D/Plt+TSHaspartate aminotransferase (SGOT), yntfv0100-55-83G34:43:0023units/L0-40F Coding CMP14+CBC/D/Plt+TSH Coding aspartate aminotransferase ( SGOT), serum 01/06/2024 03:43: 05:28:67VVL62+CBC/D/Plt+TSHaspartate aminotransferase (SGOT), fcint6822-93-88G34:28:0021units/L0-40F Coding CMP14+CBC/D/Plt+TSH Coding aspartate aminotransferase ( SGOT), serum 04/19/2024 05:28: 03:21:61QEM63+CBC/D/Plt+TSHaspartate aminotransferase (SGOT), vrlki2004-71-17P97:21:0025units/L0-40F Coding CMP14+CBC/D/Plt+TSH Coding aspartate aminotransferase ( SGOT), serum 08/24/2024 03:21:00012/12/2024 03:19:44SLP52+CBC/D/Plt+TSHaspartate aminotransferase (SGOT), fhhyf4615-39-73O91:19:0020units/L0-40F Coding CMP14+CBC/D/Plt+TSH Coding aspartate aminotransferase ( SGOT), serum 12/12/2024 03:19:001 22:33:96ISP36+CBC/D/Plt+TSHalanine aminotransferase (SGPT), ouvks2093-14-77N44:33:009units/L0-44F Coding CMP14+CBC/D/Plt+TSH Coding alanine aminotransferase (SG PT), serum 01/27/2023 22:33:0002 05:49:85FKL49+CBC/D/Plt+TSHalanine aminotransferase (SGPT), dtjbf9165-47-92M31:49:0013units/L0-44F Coding CMP14+CBC/D/Plt+TSH Coding alanine aminotransferase (SG PT), serum 05/13/2023 05:49:001 03:38:82IVE95+CBC/D/Plt+TSHalanine aminotransferase (SGPT), okcbe8683-35-41Q79:38:0015units/L0-44F Coding CMP14+CBC/D/Plt+TSH Coding alanine aminotransferase (SG PT), serum 01/06/2024 03:38:0001 05:28:79PJQ00+CBC/D/Plt+TSHalanine aminotransferase (SGPT), yyyqu0007-09-81X06:28:0027units/L0-44F Coding CMP14+CBC/D/Plt+TSH Coding alanine aminotransferase (SG PT), serum 04/19/2024 05:28:0005 03:23:43ZZT16+CBC/D/Plt+TSHalanine aminotransferase (SGPT), eevxx2043-10-87Y80:23:0018units/L0-44F Coding CMP14+CBC/D/Plt+TSH Coding alanine aminotransferase (SG PT), serum 08/24/2024 03:23:00012/12/2024 03:19:18CWY39+CBC/D/Plt+TSHalanine aminotransferase (SGPT), pytrt5450-04-72B45:19:0013units/L0-44F Coding CMP14+CBC/D/Plt+TSH Coding alanine aminotransferase (SG PT), serum 12/12/2024 03:19:001 00:40:53BBW19+CBC/D/Plt+TSHbilirubin, serum, total 4298-24-37U99:40:000.4mg/dL0.0-1.2F Coding CMP14+CBC/D/Plt+TSH Coding bilirubin, serum, total 01/28/2023 00:40:0002 05:49:66KTR20+CBC/D/Plt+TSHbilirubin, serum, total 4008-42-54O13:49:000.5mg/dL0.0-1.2F Coding CMP14+CBC/D/Plt+TSH Coding bilirubin, serum, total 05/13/2023 05:49:001 03:38:44PJY37+CBC/D/Plt+TSHbilirubin, serum, total 4154-28-11O72:38:000.7mg/dL0.0-1.2F Coding CMP14+CBC/D/Plt+TSH Coding bilirubin, serum, total 01/06/2024 03:38:0001 05:58:45LTO08+CBC/D/Plt+TSHbilirubin, serum, total 7314-34-01O64:58:000.9mg/dL0.0-1.2F Coding CMP14+CBC/D/Plt+TSH Coding bilirubin, serum, total 04/19/2024 05:58:0005 03:21:63EYD73+CBC/D/Plt+TSHbilirubin, serum, total 2012-86-22H02:21:000.9mg/dL0.0-1.2F Coding CMP14+CBC/D/Plt+TSH Coding bilirubin, serum, total 08/24/2024 03:21:00012/12/2024 03:19:71MNN31+CBC/D/Plt+TSHbilirubin, serum, total 3183-95-92W31:19:001.6mg/dL0.0-1.2HF Coding CMP14+CBC/D/Plt+TSH Coding bilirubin, serum, total 12/12/2024 03:19:0004 04:33:00CBC With Differential/Platelethematocrit, fklzs4319-06-77Z93:33:0047.2%37.5-51.0F Coding CBC With Differential/Platel et Coding hematocrit, blood 07/31/2022 04:33:001 21:20:08VWJ14+CBC/D/Plt+TSHhematocrit, blood 7632-00-36H24:20:0039.2%37.5-51.0F Coding CMP14+CBC/D/Plt+TSH Coding hematocrit, blood 01/27/2023 21:20:00105/20/2022 03:26:00CBC With Differential/Platelethematocrit, rjkbm7422-67-49K08:26:0040.8%37.5-51.0F Coding CBC With Differential/Platel et Coding hematocrit, blood 03/19/2023 03:26:0002 08:10:40OUW80+CBC/D/Plt+TSHhematocrit, blood 7117-41-40J16:10:0040.5%37.5-51.0F Coding CMP14+CBC/D/Plt+TSH Coding hematocrit, blood 05/13/2023 08:10:001 01:43:30OHF72+CBC/D/Plt+TSHhematocrit, blood 8826-72-67D20:43:0043.2%37.5-51.0F Coding CMP14+CBC/D/Plt+TSH Coding hematocrit, blood 01/06/2024 01:43:0001 05:00:85AJX27+CBC/D/Plt+TSHhematocrit, blood 0323-97-36B72:00:0043.1%37.5-51.0F Coding CMP14+CBC/D/Plt+TSH Coding hematocrit, blood 04/19/2024 05:00:0005 03:00:81NMN62+CBC/D/Plt+TSHhematocrit, blood 0958-55-02G41:00:0039.0%37.5-51.0F Coding CMP14+CBC/D/Plt+TSH Coding hematocrit, blood 08/24/2024 03:00:00012/12/2024 03:35:08LYP40+CBC/D/Plt+TSHhematocrit, blood 8866-71-27O98:35:0044.6%37.5-51.0F Coding CMP14+CBC/D/Plt+TSH Coding hematocrit, blood 12/12/2024 03:35:0004 04:33:00CBC With Differential/Platelethemoglobin, wdopt6188-63-77B48:33:0016.5g/dL13.0-17.7F Coding CBC With Differential/Platel et Coding hemoglobin, blood 07/31/2022 04:33:001 21:20:43DVL96+CBC/D/Plt+TSHhemoglobin, blood 1147-09-71H05:20:0013.5g/dL13.0-17.7F Coding CMP14+CBC/D/Plt+TSH Coding hemoglobin, blood 01/27/2023 21:20:00105/20/2022 03:26:00CBC With Differential/Platelethemoglobin, ojrlx2938-29-61F70:26:0013.9g/dL13.0-17.7F Coding CBC With Differential/Platel et Coding hemoglobin, blood 03/19/2023 03:26:0002 08:10:36UPY14+CBC/D/Plt+TSHhemoglobin, blood 0292-32-34E31:10:0014.4g/dL13.0-17.7F Coding CMP14+CBC/D/Plt+TSH Coding hemoglobin, blood 05/13/2023 08:10:001 01:43:38ZIV80+CBC/D/Plt+TSHhemoglobin, blood 4346-33-20P12:43:0015.0g/dL13.0-17.7F Coding CMP14+CBC/D/Plt+TSH Coding hemoglobin, blood 01/06/2024 01:43:0001 05:00:61OWL09+CBC/D/Plt+TSHhemoglobin, blood 0423-52-46B49:00:0015.0g/dL13.0-17.7F Coding CMP14+CBC/D/Plt+TSH Coding hemoglobin, blood 04/19/2024 05:00: 03:00:06KIE27+CBC/D/Plt+TSHhemoglobin, blood 7846-89-74V06:00:0014.1g/dL13.0-17.7F Coding CMP14+CBC/D/Plt+TSH Coding hemoglobin, blood 08/24/2024 03:00:00012/12/2024 03:35:52HUX71+CBC/D/Plt+TSHhemoglobin, blood 2332-04-06Z21:35:0015.8g/dL13.0-17.7F Coding CMP14+CBC/D/Plt+TSH Coding hemoglobin, blood 12/12/2024 03:35:0004 04:33:00CBC With Differential/Plateletplatelet rxxnd4421-83-75H70:33:53198 X10E3/UL10*3/pu4119-179A Coding CBC With Differential/Platel et Coding platelet count 07/31/2022 04:33:001 21:20:94QGU70+CBC/D/Plt+TSHplatelet count 1779-91-22L86:20:13977 X10E3/UL10*3/gn7877-422U Coding CMP14+CBC/D/Plt+TSH Coding platelet count 01/27/2023 21:20:00105/20/2022 03:26:00CBC With Differential/Plateletplatelet cdjxs2820-73-99X05:26:20493 X10E3/UL10*3/ml5824-929S Coding CBC With Differential/Platel et Coding platelet count 03/19/2023 03:26: 08:10:51YZI99+CBC/D/Plt+TSHplatelet count 8914-80-07D21:10:27293 X10E3/UL10*3/ar0767-225J Coding CMP14+CBC/D/Plt+TSH Coding platelet count 05/13/2023 08:10:0010 01:43:63MCD44+CBC/D/Plt+TSHplatelet count 7702-59-48T10:43:62679 X10E3/UL10*3/op2438-453D Coding CMP14+CBC/D/Plt+TSH Coding platelet count 01/06/2024 01:43:0001 05:00:80FKO58+CBC/D/Plt+TSHplatelet count 9960-63-06K67:00:50392 X10E3/UL10*3/cw5496-984G Coding CMP14+CBC/D/Plt+TSH Coding platelet count 04/19/2024 05:00:0005 03:00:18KTC90+CBC/D/Plt+TSHplatelet count 5231-54-40V77:00:51272 X10E3/UL10*3/rn2304-923G Coding CMP14+CBC/D/Plt+TSH Coding platelet count 08/24/2024 03:00:0009 03:35:60HDM98+CBC/D/Plt+TSHplatelet count 3697-33-92G13:35:55086 X10E3/UL10*3/jr1289-396T Coding CMP14+CBC/D/Plt+TSH Coding platelet count 12/12/2024 03:35:0004 04:33:00CBC With Differential/Plateleterythrocyte (RBC) odzrb3417-50-23M72:33:005.25 X10E6/UL10*6/mm34.14-5.80F Coding CBC With Differential/Platel et Coding erythrocyte (RBC) count 07/31/2022 04:33:0010 21:20:14OBF79+CBC/D/Plt+TSHerythrocyte (RBC) count 9139-60-37B65:20:004.54 X10E6/UL10*6/mm34.14-5.80F Coding CMP14+CBC/D/Plt+TSH Coding erythrocyte (RBC) count 01/27/2023 21:20:0012 03:26:00CBC With Differential/Plateleterythrocyte (RBC) ixqzu4918-05-44L24:26:004.73 X10E6/UL10*6/mm34.14-5.80F Coding CBC With Differential/Platel et Coding erythrocyte (RBC) count 03/19/2023 03:26:0002 08:10:66CQD66+CBC/D/Plt+TSHerythrocyte (RBC) count 4074-94-99S07:10:004.51 X10E6/UL10*6/mm34.14-5.80F Coding CMP14+CBC/D/Plt+TSH Coding erythrocyte (RBC) count 05/13/2023 08:10:0010 01:43:49EUI05+CBC/D/Plt+TSHerythrocyte (RBC) count 2739-12-27D03:43:004.65 X10E6/UL10*6/mm34.14-5.80F Coding CMP14+CBC/D/Plt+TSH Coding erythrocyte (RBC) count 01/06/2024 01:43:0001 05:00:52UBD95+CBC/D/Plt+TSHerythrocyte (RBC) count 7673-82-70A41:00:004.69 X10E6/UL10*6/mm34.14-5.80F Coding CMP14+CBC/D/Plt+TSH Coding erythrocyte (RBC) count 04/19/2024 05:00:0005 03:00:35DDK34+CBC/D/Plt+TSHerythrocyte (RBC) count 4829-37-44U46:00:004.29 X10E6/UL10*6/mm34.14-5.80F Coding CMP14+CBC/D/Plt+TSH Coding erythrocyte (RBC) count 08/24/2024 03:00:0009 03:35:54LKI76+CBC/D/Plt+TSHerythrocyte (RBC) count 6693-89-17N24:35:004.83 X10E6/UL10*6/mm34.14-5.80F Coding CMP14+CBC/D/Plt+TSH Coding erythrocyte (RBC) count 12/12/2024 03:35:0004 04:33:00CBC With Differential/Plateletleukocyte count, natzr0151-94-41Y25:33:008.6 X10E3/UL10*3/mm33.4-10.8F Coding CBC With Differential/Platel et Coding leukocyte count, blood 07/31/2022 04:33:001 21:20:74FMJ13+CBC/D/Plt+TSHleukocyte count, blood 0196-11-60L45:20:003.3 X10E3/UL10*3/mm33.4-10.8LF Coding CMP14+CBC/D/Plt+TSH Coding leukocyte count, blood 01/27/2023 21:20:00105/20/2022 03:26:00CBC With Differential/Plateletleukocyte count, ueipp2014-07-60E94:26:006.8 X10E3/UL10*3/mm33.4-10.8F Coding CBC With Differential/Platel et Coding leukocyte count, blood 03/19/2023 03:26:0002 08:10:01GXZ30+CBC/D/Plt+TSHleukocyte count, blood 0512-90-59O87:10:003.5 X10E3/UL10*3/mm33.4-10.8F Coding CMP14+CBC/D/Plt+TSH Coding leukocyte count, blood 05/13/2023 08:10:001 01:43:17SIQ89+CBC/D/Plt+TSHleukocyte count, blood 5478-23-63W91:43:003.7 X10E3/UL10*3/mm33.4-10.8F Coding CMP14+CBC/D/Plt+TSH Coding leukocyte count, blood 01/06/2024 01:43:0001 05:00:50NSD35+CBC/D/Plt+TSHleukocyte count, blood 3347-83-66U38:00:004.0 X10E3/UL10*3/mm33.4-10.8F Coding CMP14+CBC/D/Plt+TSH Coding leukocyte count, blood 04/19/2024 05:00:0005 03:00:30TEQ06+CBC/D/Plt+TSHleukocyte count, blood 8419-64-87G49:00:003.8 X10E3/UL10*3/mm33.4-10.8F Coding CMP14+CBC/D/Plt+TSH Coding leukocyte count, blood 08/24/2024 03:00:0009 03:35:04OBT06+CBC/D/Plt+TSHleukocyte count, blood 3004-39-27U86:35:005.0 X10E3/UL10*3/mm33.4-10.8F Coding CMP14+CBC/D/Plt+TSH Coding leukocyte count, blood 12/12/2024 03:35:0010 00:39:28ERV91+CBC/D/Plt+TSHalbumin/globulin ratio, khtwa3891-52-50X34:39:001.21.2-2.2F Coding CMP14+CBC/D/Plt+TSH Coding albumin/globulin ratio, seru m 01/28/2023 00:39: 05:49:41AJU89+CBC/D/Plt+TSHalbumin/globulin ratio, mpgcj1589-95-18J78:49:001.01.2-2.2LF Coding CMP14+CBC/D/Plt+TSH Coding albumin/globulin ratio, seru m 05/13/2023 05:49:001 22:38:15OIX01+CBC/D/Plt+TSHsodium, serum 0009-91-94E16:38:56188wjnf/V494-474B Coding CMP14+CBC/D/Plt+TSH Coding sodium, serum 01/27/2023 22:38: 05:50:37QIS37+CBC/D/Plt+TSHsodium, serum 4489-67-69I34:50:92478hcqn/G537-885R Coding CMP14+CBC/D/Plt+TSH Coding sodium, serum 05/13/2023 05:50:001 03:40:15ASS17+CBC/D/Plt+TSHsodium, serum 2571-14-53R32:40:11998enbx/Q546-804U Coding CMP14+CBC/D/Plt+TSH Coding sodium, serum 01/06/2024 03:40: 05:49:04LLI58+CBC/D/Plt+TSHsodium, serum 1209-03-84G40:49:56824ifvz/B579-009Z Coding CMP14+CBC/D/Plt+TSH Coding sodium, serum 04/19/2024 05:49:0005 03:21:40VIX35+CBC/D/Plt+TSHsodium, serum 1559-77-35E88:21:40395jlqq/D732-384J Coding CMP14+CBC/D/Plt+TSH Coding sodium, serum 08/24/2024 03:21:00012/12/2024 03:19:27IEZ53+CBC/D/Plt+TSHsodium, serum 9543-50-96C53:19:45001oozv/E882-948K Coding CMP14+CBC/D/Plt+TSH Coding sodium, serum 12/12/2024 03:19:0004 04:33:00CBC With Differential/Plateletmean corpuscular volume, WJA4468-19-77E24:33:7842yS82-77Y Coding CBC With Differential/Platel et Coding mean corpuscular volume, RBC 07/31/2022 04:33:001 21:20:25FVL65+CBC/D/Plt+TSHmean corpuscular volume, VFA9713-44-07J28:20:0746lY35-28J Coding CMP14+CBC/D/Plt+TSH Coding mean corpuscular volume, RBC 01/27/2023 21:20:00105/20/2022 03:26:00CBC With Differential/Plateletmean corpuscular volume, HOB4313-02-86S38:26:5989rY78-24X Coding CBC With Differential/Platel et Coding mean corpuscular volume, RBC 03/19/2023 03:26:0002 08:10:84EME40+CBC/D/Plt+TSHmean corpuscular volume, AEQ3373-29-93H34:10:1240sM64-45K Coding CMP14+CBC/D/Plt+TSH Coding mean corpuscular volume, RBC 05/13/2023 08:10:001 01:43:90XLP21+CBC/D/Plt+TSHmean corpuscular volume, MAF8933-32-96I93:43:7173cC49-74K Coding CMP14+CBC/D/Plt+TSH Coding mean corpuscular volume, RBC 01/06/2024 01:43:0001 05:00:47SXY17+CBC/D/Plt+TSHmean corpuscular volume, EVP5946-74-57Y44:00:9585tV21-71F Coding CMP14+CBC/D/Plt+TSH Coding mean corpuscular volume, RBC 04/19/2024 05:00:0005 03:00:98DVO60+CBC/D/Plt+TSHmean corpuscular volume, AKZ6748-49-79T96:00:6338wC08-25Q Coding CMP14+CBC/D/Plt+TSH Coding mean corpuscular volume, RBC 08/24/2024 03:00:00012/12/2024 03:35:71LXM29+CBC/D/Plt+TSHmean corpuscular volume, XID2763-00-44F05:35:6662mM57-09W Coding CMP14+CBC/D/Plt+TSH Coding mean corpuscular volume, RBC 12/12/2024 03:35:0004 04:33:00CBC With Differential/Plateletneutrophils as percent of blood iybudjmrhm6095-72-20P46:33:0075%Not Estab.F Coding CBC With Differential/Platel et Coding neutrophils as percent of bl ood leukocytes 07/31/2022 04:33:001 21:20:89JTL15+CBC/D/Plt+TSHneutrophils as percent of blood vmmalarrsm6489-55-03K00:20:0044%Not Estab.F Coding CMP14+CBC/D/Plt+TSH Coding neutrophils as percent of bl ood leukocytes 01/27/2023 21:20:00105/20/2022 03:26:00CBC With Differential/Plateletneutrophils as percent of blood eraojtoosc4778-59-03C12:26:0072%Not Estab.F Coding CBC With Differential/Platel et Coding neutrophils as percent of bl ood leukocytes 03/19/2023 03:26:00012/12/2024 03:35:55UXQ53+CBC/D/Plt+TSHneutrophils as percent of blood udggaouafw5228-49-68L20:35:0067%Not Estab.F Coding CMP14+CBC/D/Plt+TSH Coding neutrophils as percent of bl ood leukocytes 12/12/2024 03:35:0001 05:00:66UNZ76+CBC/D/Plt+TSHneutrophils as percent of blood qedlecfris3424-53-84V73:00:0052%Not Estab.F Coding CMP14+CBC/D/Plt+TSH Coding neutrophils as percent of bl ood leukocytes 04/19/2024 05:00:0005 03:00:06SDE18+CBC/D/Plt+TSHneutrophils as percent of blood jaglsdaibh1713-29-48M70:00:0052%Not Estab.F Coding CMP14+CBC/D/Plt+TSH Coding neutrophils as percent of bl ood leukocytes 08/24/2024 03:00:0002 08:10:36CMD30+CBC/D/Plt+TSHneutrophils as percent of blood ernjbmzebp4099-39-87C85:10:0040%Not Estab.F Coding CMP14+CBC/D/Plt+TSH Coding neutrophils as percent of bl ood leukocytes 05/13/2023 08:10:0010 01:43:79XWF52+CBC/D/Plt+TSHneutrophils as percent of blood yeumlppjaw7533-94-89I12:43:0048%Not Estab.F Coding CMP14+CBC/D/Plt+TSH Coding neutrophils as percent of bl ood leukocytes 01/06/2024 01:43:0004 04:33:00CBC With Differential/Plateletlymphocytes as percent of blood ivmvxcvhwh3389-89-81C12:33:0017%Not Estab.F Coding CBC With Differential/Platel et Coding lymphocytes as percent of bl ood leukocytes 07/31/2022 04:33:001 21:20:85BUB27+CBC/D/Plt+TSHlymphocytes as percent of blood qvgohelysk0649-96-36A85:20:0034%Not Estab.F Coding CMP14+CBC/D/Plt+TSH Coding lymphocytes as percent of bl ood leukocytes 01/27/2023 21:20:00105/20/2022 03:26:00CBC With Differential/Plateletlymphocytes as percent of blood metycgstnl8549-18-98W86:26:0018%Not Estab.F Coding CBC With Differential/Platel et Coding lymphocytes as percent of bl ood leukocytes 03/19/2023 03:26:0002/12/2023 08:10:23JFZ77+CBC/D/Plt+TSHlymphocytes as percent of blood bmtbmwgblk6731-78-18Q98:10:0039%Not Estab.F Coding CMP14+CBC/D/Plt+TSH Coding lymphocytes as percent of bl ood leukocytes 05/13/2023 08:10:0010 01:43:63FKE31+CBC/D/Plt+TSHlymphocytes as percent of blood laaueugeba4084-96-96S89:43:0033%Not Estab.F Coding CMP14+CBC/D/Plt+TSH Coding lymphocytes as percent of bl ood leukocytes 01/06/2024 01:43:0001 05:00:91KGL29+CBC/D/Plt+TSHlymphocytes as percent of blood pihisblblb2839-73-76P13:00:0034%Not Estab.F Coding CMP14+CBC/D/Plt+TSH Coding lymphocytes as percent of bl ood leukocytes 04/19/2024 05:00:0005 03:00:10AFN23+CBC/D/Plt+TSHlymphocytes as percent of blood gsxyehrpyb3408-52-73X31:00:0031%Not Estab.F Coding CMP14+CBC/D/Plt+TSH Coding lymphocytes as percent of bl ood leukocytes 08/24/2024 03:00:0009 03:35:51FVQ72+CBC/D/Plt+TSHlymphocytes as percent of blood flkipnwtqt7670-45-19T71:35:0023%Not Estab.F Coding CMP14+CBC/D/Plt+TSH Coding lymphocytes as percent of bl ood leukocytes 12/12/2024 03:35:0004 04:33:00CBC With Differential/Plateletmean corpuscular hemoglobin concentration, RGB8895-55-20N96:33:0035.0 G/DL%31.5-35.7F Coding CBC With Differential/Platel et Coding mean corpuscular hemoglobin concentration, RBC 07/31/2022 04:33:001 21:20:79NWA81+CBC/D/Plt+TSHmean corpuscular hemoglobin concentration, LEV1684-57-80X05:20:0034.4 G/DL%31.5-35.7F Coding CMP14+CBC/D/Plt+TSH Coding mean corpuscular hemoglobin concentration, RBC 01/27/2023 21:20: 03:26:00CBC With Differential/Plateletmean corpuscular hemoglobin concentration, LID4202-09-68S20:26:0034.1 G/DL%31.5-35.7F Coding CBC With Differential/Platel et Coding mean corpuscular hemoglobin concentration, RBC 03/19/2023 03:26: 08:10:96RPS54+CBC/D/Plt+TSHmean corpuscular hemoglobin concentration, RBK3697-18-28Q78:10:0035.6 G/DL%31.5-35.7F Coding CMP14+CBC/D/Plt+TSH Coding mean corpuscular hemoglobin concentration, RBC 05/13/2023 08:10:001 01:43:61VZS64+CBC/D/Plt+TSHmean corpuscular hemoglobin concentration, UBO5441-19-14J82:43:0034.7 G/DL%31.5-35.7F Coding CMP14+CBC/D/Plt+TSH Coding mean corpuscular hemoglobin concentration, RBC 01/06/2024 01:43:0001 05:00:96ALO46+CBC/D/Plt+TSHmean corpuscular hemoglobin concentration, JDX3966-03-88O98:00:0034.8 G/DL%31.5-35.7F Coding CMP14+CBC/D/Plt+TSH Coding mean corpuscular hemoglobin concentration, RBC 04/19/2024 05:00:0005 03:00:67UQR81+CBC/D/Plt+TSHmean corpuscular hemoglobin concentration, ZNI8856-29-12A33:00:0036.2 G/DL%31.5-35.7HF Coding CMP14+CBC/D/Plt+TSH Coding mean corpuscular hemoglobin concentration, RBC 08/24/2024 03:00:00012/12/2024 03:35:84BYV49+CBC/D/Plt+TSHmean corpuscular hemoglobin concentration, HSI5002-22-67E80:35:0035.4 G/DL%31.5-35.7F Coding CMP14+CBC/D/Plt+TSH Coding mean corpuscular hemoglobin concentration, RBC 12/12/2024 03:35:0004 04:33:00CBC With Differential/Plateletred blood cell distribution rqzff1687-97-98P45:33:0012.7%11.6-15.4F Coding CBC With Differential/Platel et Coding red blood cell distribution width 07/31/2022 04:33:001 21:20:31DRB16+CBC/D/Plt+TSHred blood cell distribution cvnsx6282-18-29L04:20:0013.0%11.6-15.4F Coding CMP14+CBC/D/Plt+TSH Coding red blood cell distribution width 01/27/2023 21:20:00105/20/2022 03:26:00CBC With Differential/Plateletred blood cell distribution whpzr7793-33-65T45:26:0013.9%11.6-15.4F Coding CBC With Differential/Platel et Coding red blood cell distribution width 03/19/2023 03:26:0002 08:10:00TGJ50+CBC/D/Plt+TSHred blood cell distribution qztso7869-80-49P68:10:0014.1%11.6-15.4F Coding CMP14+CBC/D/Plt+TSH Coding red blood cell distribution width 05/13/2023 08:10:0010 01:43:28CHP28+CBC/D/Plt+TSHred blood cell distribution zwbsq1203-47-48X79:43:0013.4%11.6-15.4F Coding CMP14+CBC/D/Plt+TSH Coding red blood cell distribution width 01/06/2024 01:43:0001 05:00:76WQA19+CBC/D/Plt+TSHred blood cell distribution bcdfu6262-90-72A21:00:0013.3%11.6-15.4F Coding CMP14+CBC/D/Plt+TSH Coding red blood cell distribution width 04/19/2024 05:00: 03:00:04EMG84+CBC/D/Plt+TSHred blood cell distribution goqtl5768-07-76N60:00:0012.1%11.6-15.4F Coding CMP14+CBC/D/Plt+TSH Coding red blood cell distribution width 08/24/2024 03:00:00012/12/2024 03:35:08HQC79+CBC/D/Plt+TSHred blood cell distribution xsprv2030-67-87I51:35:0013.8%11.6-15.4F Coding CMP14+CBC/D/Plt+TSH Coding red blood cell distribution width 12/12/2024 03:35: 04:33:00CBC With Differential/Plateletmean corpuscular hemoglobin, EHQ2909-07-72S13:33:0031.4pg26.6-33.0F Coding CBC With Differential/Platel et Coding mean corpuscular hemoglobin, RBC 07/31/2022 04:33:001 21:20:24VQF44+CBC/D/Plt+TSHmean corpuscular hemoglobin, PJF5672-28-96B86:20:0029.7pg26.6-33.0F Coding CMP14+CBC/D/Plt+TSH Coding mean corpuscular hemoglobin, RBC 01/27/2023 21:20:00105/20/2022 03:26:00CBC With Differential/Plateletmean corpuscular hemoglobin, NDR0732-74-48Q85:26:0029.4pg26.6-33.0F Coding CBC With Differential/Platel et Coding mean corpuscular hemoglobin, RBC 03/19/2023 03:26: 08:10:06IUO25+CBC/D/Plt+TSHmean corpuscular hemoglobin, DKS0201-12-39P50:10:0031.9pg26.6-33.0F Coding CMP14+CBC/D/Plt+TSH Coding mean corpuscular hemoglobin, RBC 05/13/2023 08:10:001 01:43:17HZZ03+CBC/D/Plt+TSHmean corpuscular hemoglobin, RJW7796-30-56Z25:43:0032.3pg26.6-33.0F Coding CMP14+CBC/D/Plt+TSH Coding mean corpuscular hemoglobin, RBC 01/06/2024 01:43:0001 05:00:18PHC48+CBC/D/Plt+TSHmean corpuscular hemoglobin, HGA6087-44-89F80:00:0032.0pg26.6-33.0F Coding CMP14+CBC/D/Plt+TSH Coding mean corpuscular hemoglobin, RBC 04/19/2024 05:00:0005 03:00:12WTH31+CBC/D/Plt+TSHmean corpuscular hemoglobin, HGK3596-25-83K76:00:0032.9pg26.6-33.0F Coding CMP14+CBC/D/Plt+TSH Coding mean corpuscular hemoglobin, RBC 08/24/2024 03:00:00012/12/2024 03:35:95CBJ29+CBC/D/Plt+TSHmean corpuscular hemoglobin, PRE6369-82-49X16:35:0032.7pg26.6-33.0F Coding CMP14+CBC/D/Plt+TSH Coding mean corpuscular hemoglobin, RBC 12/12/2024 03:35:0004 04:33:00CBC With Differential/Plateletmonocytes as percent of blood lhtooaljme7171-21-66O94:33:007%Not Estab.F Coding CBC With Differential/Platel et Coding monocytes as percent of bloo d leukocytes 07/31/2022 04:33:001 21:20:37XSA78+CBC/D/Plt+TSHmonocytes as percent of blood vgpvdrcyzn6447-64-94D94:20:0013%Not Estab.F Coding CMP14+CBC/D/Plt+TSH Coding monocytes as percent of bloo d leukocytes 01/27/2023 21:20:00105/20/2022 03:26:00CBC With Differential/Plateletmonocytes as percent of blood vtbjipunru4557-20-39D02:26:006%Not Estab.F Coding CBC With Differential/Platel et Coding monocytes as percent of bloo d leukocytes 03/19/2023 03:26: 08:10:96DCS81+CBC/D/Plt+TSHmonocytes as percent of blood xhkcgztzhm2939-66-97E44:10:0012%Not Estab.F Coding CMP14+CBC/D/Plt+TSH Coding monocytes as percent of bloo d leukocytes 05/13/2023 08:10:001 01:43:65KOP22+CBC/D/Plt+TSHmonocytes as percent of blood tvoqvwzyfq3058-97-52E17:43:0010%Not Estab.F Coding CMP14+CBC/D/Plt+TSH Coding monocytes as percent of bloo d leukocytes 01/06/2024 01:43:0001 05:00:79FJR32+CBC/D/Plt+TSHmonocytes as percent of blood sigutxtxbt5712-96-08F22:00:0010%Not Estab.F Coding CMP14+CBC/D/Plt+TSH Coding monocytes as percent of bloo d leukocytes 04/19/2024 05:00:0005 03:00:46XUA85+CBC/D/Plt+TSHmonocytes as percent of blood trwyesjbrv2816-81-41J08:00:0010%Not Estab.F Coding CMP14+CBC/D/Plt+TSH Coding monocytes as percent of bloo d leukocytes 08/24/2024 03:00:00012/12/2024 03:35:96OGX81+CBC/D/Plt+TSHmonocytes as percent of blood pxvbyjkoft3852-90-19X00:35:006%Not Estab.F Coding CMP14+CBC/D/Plt+TSH Coding monocytes as percent of bloo d leukocytes 12/12/2024 03:35:0004 04:33:00CBC With Differential/Plateletbasophils as percent of blood xfbvjuspzd7570-13-31X59:33:000%Not Estab.F Coding CBC With Differential/Platel et Coding basophils as percent of bloo d leukocytes 07/31/2022 04:33:001 21:20:36SDK32+CBC/D/Plt+TSHbasophils as percent of blood mnyftrtqln5222-61-11V38:20:005%Not Estab.F Coding CMP14+CBC/D/Plt+TSH Coding basophils as percent of bloo d leukocytes 01/27/2023 21:20:00105/20/2022 03:26:00CBC With Differential/Plateletbasophils as percent of blood jdagzmbyfu1145-55-21P49:26:003%Not Estab.F Coding CBC With Differential/Platel et Coding basophils as percent of bloo d leukocytes 03/19/2023 03:26:0002 08:10:08RXL88+CBC/D/Plt+TSHbasophils as percent of blood bpomrtimww4830-84-05X07:10:004%Not Estab.F Coding CMP14+CBC/D/Plt+TSH Coding basophils as percent of bloo d leukocytes 05/13/2023 08:10:001 01:43:76HQR21+CBC/D/Plt+TSHbasophils as percent of blood rwpxapyoxl4975-26-90Z91:43:004%Not Estab.F Coding CMP14+CBC/D/Plt+TSH Coding basophils as percent of bloo d leukocytes 01/06/2024 01:43:0001 05:00:29LFG31+CBC/D/Plt+TSHbasophils as percent of blood hhftousjab1668-45-70E38:00:002%Not Estab.F Coding CMP14+CBC/D/Plt+TSH Coding basophils as percent of bloo d leukocytes 04/19/2024 05:00:0005 03:00:20YOT04+CBC/D/Plt+TSHbasophils as percent of blood elomtnbkhl7319-16-35K27:00:003%Not Estab.F Coding CMP14+CBC/D/Plt+TSH Coding basophils as percent of bloo d leukocytes 08/24/2024 03:00:00012/12/2024 03:35:28XYQ19+CBC/D/Plt+TSHbasophils as percent of blood hehxlpfwwe8459-02-06Y54:35:003%Not Estab.F Coding CMP14+CBC/D/Plt+TSH Coding basophils as percent of bloo d leukocytes 12/12/2024 03:35:001 22:50:65GQC01+CBC/D/Plt+TSHurea nitrogen/creatinine ratio, ositq9157-33-55E54:50:0089-20LF Coding CMP14+CBC/D/Plt+TSH Coding urea nitrogen/creatinine rat io, serum 01/27/2023 22:50: 05:52:49BHV08+CBC/D/Plt+TSHurea nitrogen/creatinine ratio, ggfyq3992-90-67U95:52:0089-20LF Coding CMP14+CBC/D/Plt+TSH Coding urea nitrogen/creatinine rat io, serum 05/13/2023 05:52:001 03:43:34WZU64+CBC/D/Plt+TSHurea nitrogen/creatinine ratio, lgulk1236-46-50W92:43:0079-20LF Coding CMP14+CBC/D/Plt+TSH Coding urea nitrogen/creatinine rat io, serum 01/06/2024 03:43: 05:58:69NYB89+CBC/D/Plt+TSHurea nitrogen/creatinine ratio, mlyvc9205-81-22J97:58:0069-20LF Coding CMP14+CBC/D/Plt+TSH Coding urea nitrogen/creatinine rat io, serum 04/19/2024 05:58: 03:23:15ASP66+CBC/D/Plt+TSHurea nitrogen/creatinine ratio, vahsu7780-64-05G92:23:0059-20LF Coding CMP14+CBC/D/Plt+TSH Coding urea nitrogen/creatinine rat io, serum 08/24/2024 03:23:00012/12/2024 03:19:42CVI67+CBC/D/Plt+TSHurea nitrogen/creatinine ratio, bxgeo0673-49-86Y48:19:0099-20F Coding CMP14+CBC/D/Plt+TSH Coding urea nitrogen/creatinine rat io, serum 12/12/2024 03:19:001 00:39:73CGT73+CBC/D/Plt+TSHglobulin, serum 7010-72-15W78:39:002.81.5-4.5F Coding CMP14+CBC/D/Plt+TSH Coding globulin, serum 01/28/2023 00:39:0002 05:49:80RPI71+CBC/D/Plt+TSHglobulin, serum 6207-80-82W28:49:003.31.5-4.5F Coding CMP14+CBC/D/Plt+TSH Coding globulin, serum 05/13/2023 05:49:001 03:38:01VXB45+CBC/D/Plt+TSHglobulin, serum 7316-84-60L82:38:003.31.5-4.5F Coding CMP14+CBC/D/Plt+TSH Coding globulin, serum 01/06/2024 03:38:0001 05:58:92KGR80+CBC/D/Plt+TSHglobulin, serum 9047-80-52X67:58:002.91.5-4.5F Coding CMP14+CBC/D/Plt+TSH Coding globulin, serum 04/19/2024 05:58:0005 03:23:44FUF61+CBC/D/Plt+TSHglobulin, serum 6191-79-04T53:23:003.21.5-4.5F Coding CMP14+CBC/D/Plt+TSH Coding globulin, serum 08/24/2024 03:23:00012/12/2024 03:19:14DIC72+CBC/D/Plt+TSHglobulin, serum 3036-52-73G55:19:002.91.5-4.5F Coding CMP14+CBC/D/Plt+TSH Coding globulin, serum 12/12/2024 03:19:001 22:52:00Lipid Panel w/ Chol/HDL Ratiotriglyceride, serum, oqppvv5550-95-03Q54:52:0080mg/dL0-149F Coding Lipid Panel w/ Chol/HDL Rati o Coding triglyceride, serum, random 01/27/2023 22:52:0009 03:35:20QOX92+CBC/D/Plt+TSHlymphocyte count, blood, hsggalwlw2911-42-82J64:35:001.1 X10E3/UL10*3/mm30.7-3.1F Coding CMP14+CBC/D/Plt+TSH Coding lymphocyte count, blood, aut omated 12/12/2024 03:35:0001 05:00:65CYI66+CBC/D/Plt+TSHlymphocyte count, blood, mlhokxbdn3255-63-18G16:00:001.4 X10E3/UL10*3/mm30.7-3.1F Coding CMP14+CBC/D/Plt+TSH Coding lymphocyte count, blood, aut omated 04/19/2024 05:00:0005 03:00:69BMW44+CBC/D/Plt+TSHlymphocyte count, blood, kasqyrmsm9808-92-52Y41:00:001.2 X10E3/UL10*3/mm30.7-3.1F Coding CMP14+CBC/D/Plt+TSH Coding lymphocyte count, blood, aut omated 08/24/2024 03:00:0002 08:10:92XOV34+CBC/D/Plt+TSHlymphocyte count, blood, huyiagpxi9028-88-99K68:10:001.4 X10E3/UL10*3/mm30.7-3.1F Coding CMP14+CBC/D/Plt+TSH Coding lymphocyte count, blood, aut omated 05/13/2023 08:10:0010 01:43:96XUL79+CBC/D/Plt+TSHlymphocyte count, blood, cqeyxadeb4254-77-50G32:43:001.2 X10E3/UL10*3/mm30.7-3.1F Coding CMP14+CBC/D/Plt+TSH Coding lymphocyte count, blood, aut omated 01/06/2024 01:43: 04:33:00CBC With Differential/Plateletlymphocyte count, blood, mtjqnxvgg7403-48-02N05:33:001.5 X10E3/UL10*3/mm30.7-3.1F Coding CBC With Differential/Platel et Coding lymphocyte count, blood, aut omated 07/31/2022 04:33:001 21:20:41DBJ74+CBC/D/Plt+TSHlymphocyte count, blood, bxqcbljfy6310-08-89L13:20:001.1 X10E3/UL10*3/mm30.7-3.1F Coding CMP14+CBC/D/Plt+TSH Coding lymphocyte count, blood, aut omated 01/27/2023 21:20:00105/20/2022 03:26:00CBC With Differential/Plateletlymphocyte count, blood, cszklcegf1838-30-91K14:26:001.2 X10E3/UL10*3/mm30.7-3.1F Coding CBC With Differential/Platel et Coding lymphocyte count, blood, aut omated 03/19/2023 03:26: 04:33:00CBC With Differential/Plateletmonocyte count, blood, nraaliupv7192-24-39L75:33:000.6 X10E3/UL10*3/microliter0.1-0.9F Coding CBC With Differential/Platel et Coding monocyte count, blood, autom ated 07/31/2022 04:33:001 21:20:79SFA90+CBC/D/Plt+TSHmonocyte count, blood, qwmsnzyst0999-87-13W29:20:000.4 X10E3/UL10*3/microliter0.1-0.9F Coding CMP14+CBC/D/Plt+TSH Coding monocyte count, blood, autom ated 01/27/2023 21:20:00105/20/2022 03:26:00CBC With Differential/Plateletmonocyte count, blood, mhmpjtrtu4005-84-99Y95:26:000.4 X10E3/UL10*3/microliter0.1-0.9F Coding CBC With Differential/Platel et Coding monocyte count, blood, autom ated 03/19/2023 03:26:0002 08:10:55OEM79+CBC/D/Plt+TSHmonocyte count, blood, tpbdkjxlf6251-68-76G26:10:000.4 X10E3/UL10*3/microliter0.1-0.9F Coding CMP14+CBC/D/Plt+TSH Coding monocyte count, blood, autom ated 05/13/2023 08:10:0009 03:35:43IFP84+CBC/D/Plt+TSHmonocyte count, blood, xqvrpuscy3513-30-22W64:35:000.3 X10E3/UL10*3/microliter0.1-0.9F Coding CMP14+CBC/D/Plt+TSH Coding monocyte count, blood, autom ated 12/12/2024 03:35:0010 01:43:32SWP09+CBC/D/Plt+TSHmonocyte count, blood, esxllnxpw5272-06-51A52:43:000.4 X10E3/UL10*3/microliter0.1-0.9F Coding CMP14+CBC/D/Plt+TSH Coding monocyte count, blood, autom ated 01/06/2024 01:43:0001 05:00:42XVZ55+CBC/D/Plt+TSHmonocyte count, blood, kqisuxvbw9698-59-71X38:00:000.4 X10E3/UL10*3/microliter0.1-0.9F Coding CMP14+CBC/D/Plt+TSH Coding monocyte count, blood, autom ated 04/19/2024 05:00:0005 03:00:32ZCR87+CBC/D/Plt+TSHmonocyte count, blood, pnsuomvdc0107-49-78A61:00:000.4 X10E3/UL10*3/microliter0.1-0.9F Coding CMP14+CBC/D/Plt+TSH Coding monocyte count, blood, autom ated 08/24/2024 03:00:00105/13/2021 10:40:05INFLUEN A AGinfluenza virus A antigen 1872-33-97X12:40:05positive Coding INFLUEN A AG Coding influenza virus A antigen 03/12/2022 10:40:0501/27/2023 22:54:00Lipid Panel w/ Chol/HDL Ratio cholesterol/HDL ratio, odzfk0943-38-01A14:54:002.9 ratio0.0-5.0F Coding Lipid Panel w/ Chol/HDL Rati o Coding cholesterol/HDL ratio, serum 01/27/2023 22:54: 04:33:00CBC With Differential/Plateleteosinophils as percent of blood wfrctigcqd0708-40-81O48:33:000%Not Estab.F Coding CBC With Differential/Platel et Coding eosinophils as percent of bl ood leukocytes 07/31/2022 04:33:001 01:43:40AIF47+CBC/D/Plt+TSHeosinophils as percent of blood dsyaauplqe9085-52-97U93:43:005%Not Estab.F Coding CMP14+CBC/D/Plt+TSH Coding eosinophils as percent of bl ood leukocytes 01/06/2024 01:43:0001 05:00:42TMJ45+CBC/D/Plt+TSHeosinophils as percent of blood bkrnbbpiwy5939-67-18I85:00:002%Not Estab.F Coding CMP14+CBC/D/Plt+TSH Coding eosinophils as percent of bl ood leukocytes 04/19/2024 05:00:0005 03:00:51GWI23+CBC/D/Plt+TSHeosinophils as percent of blood pawmidqwsw5246-37-43P15:00:004%Not Estab.F Coding CMP14+CBC/D/Plt+TSH Coding eosinophils as percent of bl ood leukocytes 08/24/2024 03:00:00012/12/2024 03:35:16RPG97+CBC/D/Plt+TSHeosinophils as percent of blood rtciqfczwj8719-28-24D63:35:001%Not Estab.F Coding CMP14+CBC/D/Plt+TSH Coding eosinophils as percent of bl ood leukocytes 12/12/2024 03:35:001 21:20:35XMR78+CBC/D/Plt+TSHeosinophils as percent of blood knzbihykvh9730-70-65I94:20:004%Not Estab.F Coding CMP14+CBC/D/Plt+TSH Coding eosinophils as percent of bl ood leukocytes 01/27/2023 21:20:00105/20/2022 03:26:00CBC With Differential/Plateleteosinophils as percent of blood jhjfetrkho4184-74-46M82:26:001%Not Estab.F Coding CBC With Differential/Platel et Coding eosinophils as percent of bl ood leukocytes 03/19/2023 03:26: 08:10:03IFT11+CBC/D/Plt+TSHeosinophils as percent of blood smcvzefczg7087-96-66W42:10:004%Not Estab.F Coding CMP14+CBC/D/Plt+TSH Coding eosinophils as percent of bl ood leukocytes 05/13/2023 08:10:001 08:31:00Triiodothyronine (T3), Free triiodothyronine, free, fskdl7994-56-69B92:31:002.8pg/mL2.0-4.4F Coding Triiodothyronine (T3), Free Coding triiodothyronine, free, seru m 01/06/2024 08:31: 08:04:00Triiodothyronine (T3), Free triiodothyronine, free, cwhqy2272-21-90G39:04:002.8pg/mL2.0-4.4F Coding Triiodothyronine (T3), Free Coding triiodothyronine, free, seru m 07/09/2023 08:04: 18:16:00Vitamin D, 25-Hydroxyvitamin D 25-hydroxy, dtboz8690-23-00L16:16:0074.7ng/mL30.0-100.0F Coding Vitamin D, 25-Hydroxy Coding vitamin D 25-hydroxy, serum 08/24/2024 18:16:00012/12/2024 18:44:00Vitamin D, 25-Hydroxyvitamin D 25-hydroxy, dwzgi0007-79-31G27:44:0089.7ng/mL30.0-100.0F Coding Vitamin D, 25-Hydroxy Coding vitamin D 25-hydroxy, serum 12/12/2024 18:44:001 18:34:00Vitamin D, 25-Hydroxyvitamin D 25-hydroxy, zhnji1062-47-06H80:34:0034.6ng/mL30.0-100.0F Coding Vitamin D, 25-Hydroxy Coding vitamin D 25-hydroxy, serum 01/06/2024 18:34: 16:20:00Vitamin D, 25-Hydroxyvitamin D 25-hydroxy, xvcag1146-38-26K82:20:0026.4ng/mL30.0-100.0LF Coding Vitamin D, 25-Hydroxy Coding vitamin D 25-hydroxy, serum 05/16/2023 16:20:001 12:07:00Vitamin D, 25-Hydroxyvitamin D 25-hydroxy, invmn1574-83-43Z98:07:0020.7ng/mL30.0-100.0LF Coding Vitamin D, 25-Hydroxy Coding vitamin D 25-hydroxy, serum 01/28/2023 12:07: 04:33:00CBC With Differential/PlateletAbsolute Ddmziawrdvh6964-69-61R83:33:006.4 X10E3/ULK/uL1.4-7.0F Coding CBC With Differential/Platel et Coding Absolute Neutrophils 07/31/2022 04:33:001 21:20:09HWM65+CBC/D/Plt+TSHAbsolute Neutrophils 1421-41-03Z80:20:001.5 X10E3/ULK/uL1.4-7.0F Coding CMP14+CBC/D/Plt+TSH Coding Absolute Neutrophils 01/27/2023 21:20:00105/20/2022 03:26:00CBC With Differential/PlateletAbsolute Nkwrbgmfmhh3578-76-20C15:26:004.9 X10E3/ULK/uL1.4-7.0F Coding CBC With Differential/Platel et Coding Absolute Neutrophils 03/19/2023 03:26:0002 08:10:67XBH33+CBC/D/Plt+TSHAbsolute Neutrophils 9737-81-65U81:10:001.4 X10E3/ULK/uL1.4-7.0F Coding CMP14+CBC/D/Plt+TSH Coding Absolute Neutrophils 05/13/2023 08:10:001 01:43:89YRJ70+CBC/D/Plt+TSHAbsolute Neutrophils 6073-13-52F78:43:001.7 X10E3/ULK/uL1.4-7.0F Coding CMP14+CBC/D/Plt+TSH Coding Absolute Neutrophils 01/06/2024 01:43:0001 05:00:62AKP11+CBC/D/Plt+TSHAbsolute Neutrophils 6192-99-68E68:00:002.1 X10E3/ULK/uL1.4-7.0F Coding CMP14+CBC/D/Plt+TSH Coding Absolute Neutrophils 04/19/2024 05:00:0005 03:00:22OHG33+CBC/D/Plt+TSHAbsolute Neutrophils 0173-59-90H47:00:002.0 X10E3/ULK/uL1.4-7.0F Coding CMP14+CBC/D/Plt+TSH Coding Absolute Neutrophils 08/24/2024 03:00:00012/12/2024 03:35:03FUP02+CBC/D/Plt+TSHAbsolute Neutrophils 1393-80-17O31:35:003.3 X10E3/ULK/uL1.4-7.0F Coding CMP14+CBC/D/Plt+TSH Coding Absolute Neutrophils 12/12/2024 03:35:0004 04:33:00CBC With Differential/Plateletbasophil count, yiplxnfq2952-49-61T02:33:000.0 x10E3/uL0.0-0.2F Coding CBC With Differential/Platel et Coding basophil count, absolute 07/31/2022 04:33:001 21:20:81ABK33+CBC/D/Plt+TSHbasophil count, vlwvzsuv0560-72-43A10:20:000.2 x10E3/uL0.0-0.2F Coding CMP14+CBC/D/Plt+TSH Coding basophil count, absolute 01/27/2023 21:20:00105/20/2022 03:26:00CBC With Differential/Plateletbasophil count, oqvltpgo8562-68-59U19:26:000.2 x10E3/uL0.0-0.2F Coding CBC With Differential/Platel et Coding basophil count, absolute 03/19/2023 03:26: 08:10:43JYH56+CBC/D/Plt+TSHbasophil count, evwpestg9698-82-25T95:10:000.1 x10E3/uL0.0-0.2F Coding CMP14+CBC/D/Plt+TSH Coding basophil count, absolute 05/13/2023 08:10:001 01:43:04XJX33+CBC/D/Plt+TSHbasophil count, qhfujvja3569-68-74O68:43:000.2 x10E3/uL0.0-0.2F Coding CMP14+CBC/D/Plt+TSH Coding basophil count, absolute 01/06/2024 01:43:0001 05:00:05BNN01+CBC/D/Plt+TSHbasophil count, vkcmqedr2999-36-62D41:00:000.1 x10E3/uL0.0-0.2F Coding CMP14+CBC/D/Plt+TSH Coding basophil count, absolute 04/19/2024 05:00:0005 03:00:98TIS09+CBC/D/Plt+TSHbasophil count, gkridutt4188-94-71X31:00:000.1 x10E3/uL0.0-0.2F Coding CMP14+CBC/D/Plt+TSH Coding basophil count, absolute 08/24/2024 03:00:0009/01/2025 03:35:72KAQ62+CBC/D/Plt+TSHbasophil count, xvlifhlc2706-10-91Y99:35:000.2 x10E3/uL0.0-0.2F Coding CMP14+CBC/D/Plt+TSH Coding basophil count, absolute 12/12/2024 03:35:00105/13/2021 10:40:05INFLUEN B AGinfluenza B virus antigen 3105-73-29E66:40:05negative Coding INFLUEN B AG Coding influenza B virus antigen 03/12/2022 10:40:05007/31/2022 04:33:00CBC With Differential/PlateletEosinophil Absolute Pzhif0484-49-93B61:33:000.0 X10E3/ULK/uL0.0-0.4F Coding CBC With Differential/Platel et Coding Eosinophil Absolute Count 07/31/2022 04:33:001 21:20:06VLE72+CBC/D/Plt+TSHEosinophil Absolute Uvqlb9787-91-11C83:20:000.1 X10E3/ULK/uL0.0-0.4F Coding CMP14+CBC/D/Plt+TSH Coding Eosinophil Absolute Count 01/27/2023 21:20:00105/20/2022 03:26:00CBC With Differential/PlateletEosinophil Absolute Sunag1102-69-92B66:26:000.1 X10E3/ULK/uL0.0-0.4F Coding CBC With Differential/Platel et Coding Eosinophil Absolute Count 03/19/2023 03:26:0002 08:10:66ZSI31+CBC/D/Plt+TSHEosinophil Absolute Pbcso6778-64-11K31:10:000.1 X10E3/ULK/uL0.0-0.4F Coding CMP14+CBC/D/Plt+TSH Coding Eosinophil Absolute Count 05/13/2023 08:10:001 01:43:60LIR94+CBC/D/Plt+TSHEosinophil Absolute Gecra4577-84-90X62:43:000.2 X10E3/ULK/uL0.0-0.4F Coding CMP14+CBC/D/Plt+TSH Coding Eosinophil Absolute Count 01/06/2024 01:43:0001 05:00:10SYH35+CBC/D/Plt+TSHEosinophil Absolute Jgvwp2756-05-78M56:00:000.1 X10E3/ULK/uL0.0-0.4F Coding CMP14+CBC/D/Plt+TSH Coding Eosinophil Absolute Count 04/19/2024 05:00:0005 03:00:72FXO16+CBC/D/Plt+TSHEosinophil Absolute Uqplb7986-53-40R01:00:000.1 X10E3/ULK/uL0.0-0.4F Coding CMP14+CBC/D/Plt+TSH Coding Eosinophil Absolute Count 08/24/2024 03:00:00012/12/2024 03:35:86QOC36+CBC/D/Plt+TSHEosinophil Absolute Numjt5730-31-30A41:35:000.1 X10E3/ULK/uL0.0-0.4F Coding CMP14+CBC/D/Plt+TSH Coding Eosinophil Absolute Count 12/12/2024 03:35:0004 04:33:00CBC With Differential/Plateletimmature granulocytes, percentage of total cells, dyzkp8358-27-84S40:33:001%Not Estab.F Coding CBC With Differential/Platel et Coding immature granulocytes, perce ntage of total cells, blood 07/31/2022 04:33:001 21:20:91PSZ34+CBC/D/Plt+TSHimmature granulocytes, percentage of total cells, rpiar0107-14-08D71:20:000%Not Estab.F Coding CMP14+CBC/D/Plt+TSH Coding immature granulocytes, perce ntage of total cells, blood 01/27/2023 21:20:00105/20/2022 03:26:00CBC With Differential/Plateletimmature granulocytes, percentage of total cells, mjzmg9539-00-68P86:26:000%Not Estab.F Coding CBC With Differential/Platel et Coding immature granulocytes, perce ntage of total cells, blood 03/19/2023 03:26:0002 08:10:29VJR03+CBC/D/Plt+TSHimmature granulocytes, percentage of total cells, bqzez7321-85-50W94:10:001%Not Estab.F Coding CMP14+CBC/D/Plt+TSH Coding immature granulocytes, perce ntage of total cells, blood 05/13/2023 08:10:001 01:43:07TDA50+CBC/D/Plt+TSHimmature granulocytes, percentage of total cells, aiext0649-42-31E70:43:000%Not Estab.F Coding CMP14+CBC/D/Plt+TSH Coding immature granulocytes, perce ntage of total cells, blood 01/06/2024 01:43: 05:00:16DQR44+CBC/D/Plt+TSHimmature granulocytes, percentage of total cells, gytzi9155-03-14T43:00:000%Not Estab.F Coding CMP14+CBC/D/Plt+TSH Coding immature granulocytes, perce ntage of total cells, blood 04/19/2024 05:00: 03:00:26LKI31+CBC/D/Plt+TSHimmature granulocytes, percentage of total cells, azqjz4337-47-05U00:00:000%Not Estab.F Coding CMP14+CBC/D/Plt+TSH Coding immature granulocytes, perce ntage of total cells, blood 08/24/2024 03:00:00012/12/2024 03:35:79RBN20+CBC/D/Plt+TSHimmature granulocytes, percentage of total cells, trjpi9547-04-57O12:35:000%Not Estab.F Coding CMP14+CBC/D/Plt+TSH Coding immature granulocytes, perce ntage of total cells, blood 12/12/2024 03:35:001 22:54:00Lipid Panel w/ Chol/HDL RatioCALCULATED LDL SALL9154-72-77S44:54:0073mg/dL0-99F Coding Lipid Panel w/ Chol/HDL Rati o Coding CALCULATED LDL CHOL 01/27/2023 22:54: 04:33:00CBC With Differential/PlateletAbsolute Immature Rbepapgstsrr5021-86-62E09:33:000.1 X10E3/UL10E3/uL0.0-0.1F Coding CBC With Differential/Platel et Coding Absolute Immature Granulocyt es 07/31/2022 04:33:001 21:20:31LPQ34+CBC/D/Plt+TSHAbsolute Immature Tzegphvcqvyh4890-83-61C15:20:000.0 X10E3/UL10E3/uL0.0-0.1F Coding CMP14+CBC/D/Plt+TSH Coding Absolute Immature Granulocyt es 01/27/2023 21:20:00105/20/2022 03:26:00CBC With Differential/PlateletAbsolute Immature Lvbiafdxhklk8945-22-78Y36:26:000.0 X10E3/UL10E3/uL0.0-0.1F Coding CBC With Differential/Platel et Coding Absolute Immature Granulocyt es 03/19/2023 03:26:0002 08:10:33HAZ15+CBC/D/Plt+TSHAbsolute Immature Zoacwnhsctmv9670-29-06L31:10:000.0 X10E3/UL10E3/uL0.0-0.1F Coding CMP14+CBC/D/Plt+TSH Coding Absolute Immature Granulocyt es 05/13/2023 08:10:001 01:43:68PMH76+CBC/D/Plt+TSHAbsolute Immature Wbhckvmvomdm4533-98-64H72:43:000.0 X10E3/UL10E3/uL0.0-0.1F Coding CMP14+CBC/D/Plt+TSH Coding Absolute Immature Granulocyt es 01/06/2024 01:43:0001 05:00:84HIB46+CBC/D/Plt+TSHAbsolute Immature Hfcrecmqigjf5309-74-57T52:00:000.0 X10E3/UL10E3/uL0.0-0.1F Coding CMP14+CBC/D/Plt+TSH Coding Absolute Immature Granulocyt es 04/19/2024 05:00:0005/ 03:00:72NRO18+CBC/D/Plt+TSHAbsolute Immature Jxsocgdhisdi3467-67-22Z89:00:000.0 X10E3/UL10E3/uL0.0-0.1F Coding CMP14+CBC/D/Plt+TSH Coding Absolute Immature Granulocyt es 08/24/2024 03:00:00012/12/2024 03:35:89PYZ22+CBC/D/Plt+TSHAbsolute Immature Vzpadtovxkpi7236-73-58R99:35:000.0 X10E3/UL10E3/uL0.0-0.1F Coding CMP14+CBC/D/Plt+TSH Coding Absolute Immature Granulocyt es 12/12/2024 03:35:00105/13/2021 10:40:64SCRNQFSDHXIC1625VPhX (COVID-19) SARS coronavirus 2 Ag (Antigen Presence) in Respiratory specimen by Rapid immunoassay 0489-63-95G38:40:05Not Detected Coding COVAGRSRAPID Coding 2019NCoV (COVID-19) SARS cor onavirus 2 Ag (Antigen Presence) in Respiratory specimen by Rapid immunoassay 03/12/2022 10:40:05
[2025-01-26 18:08] LABS: Hematocrit 35.3 % (37-53); Hemoglobin 12.20 g/dL (11.27-16.99); Mean Corpuscular HGB Conc 34.6 g/dL (30-55); Mean Corpuscular Hemoglobin 31.7 pg (27-33); Mean Corpuscular Volume 91.7 fl (82-101); Nucleated Red Blood Cells % 0 %; Platelet Count 145 10^3/cmm (157-399); Red Blood Count 3.85 10^6/uL (3.85-5.65); White Blood Count 5.70 10^3/uL (3.29-11.43)
--- NOTE | 2025-01-26 18:09 | PC.NURSE ---
ATTEMPTED STRAIGHT CATH, UNABLE TO OBTAIN URINE. PER FAMILY, PT HAS BEEN UNABLE TO PEE X2 DAYS, PT NOT EATING/DRINKING COMPARED TO HIS NORMAL. PT DENIES URGE TO PEE. ED PROVIDER NOTIFIED
--- NOTE | 2025-01-26 18:10 | PC.NURSE ---
1L IV FLUIDS INFUSING PER EMS, VERBAL ORDER OF DR. KABA TO CONTINUE FLUIDS
--- NOTE | 2025-01-26 18:18 | PC.NURSE ---
pt b/p , recheck . placed pt in trendelenburg. notified ED provider, verbal orders for 1L NS bolus.
[2025-01-26 18:29] LABS: Alanine Aminotransferase 14 U/L (0-41); Albumin Level 3.1 g/dL (3.5-5.2); Alkaline Phosphatase 53 U/L (40-130); Anion Gap 19.2 (5-19); Aspartate Amino Transferase 15 U/L (0-40); Blood Urea Nitrogen 23 mg/dL (6-20); Calcium 7.9 mg/dL (8.5-10.5); Carbon Dioxide 20 mmol/L (22-29); Chloride 102 mmol/L (98-107); Creatinine Clr Calc Pharmacy 64.4072; Globulin 2.7 g/dL (1.3-4.6); Glucose 111 mg/dL (65-115); Osmolality Calculated 288 mOsm/kg (285-295); Potassium 4.2 mmol/L (3.5-5.1); Sodium 137 mmol/L (136-145); Total Protein 5.8 g/dL (6.6-8.7)
[2025-01-26 18:34] VITALS: BP 101/65; PULSE 65; RESP 16; O2SAT 100
[2025-01-26 18:51] LABS: Respiratory Syncytial Virus Ce NEGATIVE (Negative); SARS-CoV-2 PCR NEGATIVE (Negative)
[2025-01-26 20:04] VITALS: BP 101/70; PULSE 66; RESP 15; O2SAT 100
[2025-01-26 20:33] LABS: Lactic Sepsis W/Reflex 2.7 mmol/L (0.5-2.2)
[2025-01-26 20:37] LABS: Reflex Lactate Order REFLEX LACTIC ORDERD
[2025-01-26 21:04] VITALS: BP 100/63; PULSE 64; RESP 12; O2SAT 100
[2025-01-26 21:14] LABS: Lactic Acid level (Lactate) 1.9 mmol/L (0.5-2.2)
[2025-01-26 22:35] VITALS: BP 99/67; PULSE 63; O2SAT 100
[2025-01-26 23:09] LABS: Glucose Urine UA Negative (Normal); Nitrate Urine Negative (Negative); Specific Gravity, Urine 1.022 (1.005-1.030)
[2025-01-26 23:13] LABS: Add Urine Microscopic? YES; Universal Test for UA Present (0)
[2025-01-26] MEDS: cefTRIAXone 1,000 mg SDV 1000 MG IVP (23:52)
[2025-01-26 23:54] VITALS: BP 110/71; PULSE 68; RESP 18; O2SAT 100
== END 2025-01-27 00:18 | disposition home or self-care (01) ==
PROVIDERS: Family Medicine; Emergency Provider Emergency Medicine
DX: R13.10 Dysphagia, unspecified (principal); N39.0 Urinary tract infection, site not specified; Z11.52 Encounter for screening for COVID-19
CPT/HCPCS: 36415; 51798; 71045; 80053; 81001; 83605; 85025; 87637; 93005; 96361; 96374; 99285; J0696; J7030

== ENCOUNTER 2025-01-29 12:02 | Inpatient (IN) | payer MEDICARE, MEDICAID, SELFPAY ==
[2025-01-29] VITALS (10 sets, daily range): BP systolic 91–118; BP diastolic 55–83; PULSE 58–65; RESP 11–18; TEMP 36.4–36.5; O2SAT 96–100
--- NOTE | 2025-01-29 12:10 | CT_ITS ---
WS: [id number] CT HEAD NONCONTRAST HISTORY: fall, head injury TECHNIQUE: Contiguous axial imaging performed through the brain. Bone and soft tissue windows. Sagittal and coronal reformats reviewed. All CT scans at [facility] use at least one of these dose optimization techniques: automated exposure control; mA and/or kV adjustment per patient size (includes targeted exams where dose is matched to clinical indication); or iterative reconstruction. DLP: 990.08 mGy.cm COMPARISON: None available. No acute intracranial hemorrhage, midline shift or mass effect. Minimal atrophy and small vessel disease. Benign calcifications in the basal ganglia. Ventricles: Normal size with no hydrocephalus. No inferior displacement of the cerebellar tonsils. Paranasal sinuses: Mucous retention cyst in the RIGHT sphenoid sinus. Mastoid air cells: Well pneumatized. Calvarium and scalp: Skull is intact with no soft tissue edema or swelling. CT/CT head wo con* [id number] IMPRESSION: 1. No acute intracranial hemorrhage or edema. 2. Minimal cerebral atrophy and small vessel disease.
--- NOTE | 2025-01-29 12:14 | ECG_ITS ---
[facility]: 2025-01-29 Pat Name: Asa Smith Department: Room: Gender: Male Living Skills Advisor: : 1975 Requested By: Gi Cooper Order Number: [id number] Norm MD: Juan Alberto Herndon M.D. Measurements Intervals [place] Rate: 59 P: 70 MA: 212 QRS: 58 QRSD: 124 T: 50 QT: 461 QTc: 458 Interpretive Statements SINUS BRADYCARDIA WITH FIRST DEGREE AV BLOCK POSSIBLE LEFT ATRIAL ENLARGEMENT [-0.1mV P-WAVE IN V1/V2] RIGHT VENTRICULAR CONDUCTION DELAY [RSR (QR) IN V1/V2] POSSIBLE SEPTAL MYOCARDIAL INFARCTION , PROBABLY OLD [40+ ms Q WAVE IN V1/V2] Compared to ECG 01/26/2025 18:07:21 TRACING ARTIFACT NO LONGER PRESENT Electronically Signed On 01-31-2025 08:55:31 CDT by Juan Alberto Herndon M.D. [email or web address]
--- NOTE | 2025-01-29 12:14 | W.ED.WEAKNES ---
HPI - Weakness General: Chief complaint: Weakness Stated complaint: Lethargic History of Present Illness: 49-year-old man with a history of Down syndrome, hypothyroidism, dysphagia and a history of esophageal stricture who presents to the emergency room with increased somnolence and weakness. EMS reports that they brought him here 3 days ago and he was much more alert at that time. He presented at the time for generalized weakness. He was diagnosed with UTI at that time and sent home on Omnicef and mirtazapine. EMS also reports that the patient had a fall pretty quickly after he got home and hit his head. He does have a bruise on his forehead. Related Data Home Medications ?Medication ?Instructions ?Recorded ?Confirmed levothyroxine 75 mcg tablet 75 mcg PO DAILY 12/04/24 01/29/25 (Synthroid) omeprazole 20 mg capsule,delayed 20 mg PO DAILY 01/29/25 01/29/25 release Previous Rx's ?Medication ?Instructions ?Recorded albuterol sulfate 90 mcg/actuation 2 inh inhalation Q4H PRN shortness 07/22/22 aerosol inhaler of breath or wheezing #18 grams cefdinir 300 mg capsule 300 mg PO BID #14 caps 01/27/25 mirtazapine 7.5 mg tablet 7.5 mg PO DAILY #30 tabs 01/27/25 Allergies Allergy/AdvReac Type Severity Reaction Status Date / Time No Known Allergies Allergy Verified 12/04/24 12:46 Review of Systems General: Reports: ROS unobtainable due to medical condition and ROS unobtainable due to mental status [facility] ED PFSH: Medical History (Updated 01/29/25 @ 17:08 by Gi Hdz MD) Helicobacter pylori gastritis Hypothyroidism Down syndrome Esophageal stricture Surgical History History of open heart surgery 2019 History of colonoscopy History of esophagogastroduodenoscopy (EGD) 2019 History of esophagogastroduodenoscopy (EGD) 10/15/21 Family History Other CAD (coronary artery disease) Diabetes Denies family history of Dementia Anesthesia complication Lung disease Cancer Stroke Social History Smoking and tobacco/nicotine status: never used tobacco/nicotine Alcohol intake: never Substance/Drug Use: never Caregiver/support person: Yes Lives independently: No Household members: other Details: mother Marital status: Single Physical Exam Narrative: EXAM NARRATIVE: General: Somnolent, appears ill, Down's facies Skin: Warm, dry. Head: Normocephalic, atraumatic. Neck: Supple, trachea midline. Eye: Extraocular movements are intact. Ears, nose, mouth and throat: mucosa moist. Cardiovascular: Regular, Normal peripheral perfusion. Respiratory: Lungs are clear to auscultation, respirations are non-labored, breath sounds are equal, Symmetrical chest wall expansion. Gastrointestinal: Soft, Nontender, Non distended Musculoskeletal: Normal ROM, no deformity. Neurological: Patient is very somnolent, does not answer questions, no focal neurological deficit observed. Psychiatric: Unable to assess Course Vital Signs: Vital signs: Vital Signs Temperature 97.7 F 01/29/25 12:03 Pulse Rate 61 01/29/25 12:03 Respiratory Rate 16 01/29/25 12:03 Blood Pressure 91/55 01/29/25 12:03 Pulse Oximetry 100 01/29/25 12:03 Oxygen Delivery Me thod Room Air 01/29/25 12:03 MDM - Weakness Medical Decision Making Medical decision making: Patient's reason for coming to the emergency room: Somnolence, not eating or drinking Social determinants: Patient has Down syndrome and his mother is elderly. With him being a somnolent she is unable to care for him. I reviewed the patient's medical record. Patient had a recent ER visit. Received fluids. Was started on mirtazapine which will help with appetite but also can cause somnolence I reviewed the patient's current home meds Patient was started on Omnicef and mirtazapine. Alternate historians: History from EMS and then later from mother. Differential diagnosis including but not limited to and based on the above HPI, review of systems and physical exam: In this patient with altered mental status: Stroke. Hypoglycemia. Metabolic encephalopathy. Infections such as pneumonia, urinary tract infection, Covid-19, Influenza. Electrolyte abnormalities such as hypernatremia. Renal failure / uremia. Hepatic encephalopathy. Hypoxemia. Hypercapnic respiratory failure. Psychosis. Drug or alcohol intoxication. Medication overdose. Orders placed to evaluate differential diagnosis based on the above differential, HPI and physical exam Differential diagnosis including but not limited to and based on the above HPI, review of systems and physical exam: patient with fall and head injury. Subdural hematoma, subarachnoid hemorrhage, concussion, skull fracture. Orders placed to evaluate differential diagnosis based on the above differential, HPI and physical exam CT scan of the head was ordered. CT head: No acute intracranial process. No intracranial hemorrhage, no evidence of infarct. No evidence of acute fracture. This was reviewed and interpreted by myself the emergency room physician. I also reviewed the radiology report. Chest x-ray: No acute process. No infiltrate. No pneumothorax. This was reviewed and interpreted by myself the emergency room physician. I also reviewed the radiology report. EKG: Time 1210. Rate 59. Sinus bradycardia. No ST-T changes, no ectopy, first degree AV Block, EP Interpretation. This was reviewed and interpreted by myself the ER physician at 1215 Lab Review: Laboratory results were reviewed and interpreted by myself the emergency room physician. No leukocytosis. No anemia. No renal failure. Renal functions actually little better than previous. No signs of urinary tract infection at this point. Assessment of risk: Level of risk: Moderate. Patient has Down syndrome Hospitalization considerations: Patient is being observed. He is still too somnolent to get up and mother cannot care for him. Workup negative thus far and I think this may be a medication side effect. Reexamination: Patient remains extremely somnolent. Mom says she cannot do anything with him right now. No oxygen requirements. Initial In-N-Out cath showed no urine. Mom said the patient had only 200 cc of urine yesterday. Consultation: I spoke with Dr. Zabala who is on-call for the hospital service who agrees to admission. Assessment and plan: Dehydration Somnolence Oligoanuria Medication side effect ?Patient family provided urine after 2 L of fluid. -I discussed the patient with the hospitalist on-call who is admitting the patient. - Discussed findings and plan with patient. Answered any questions. - All laboratory values were reviewed and interpreted personally by myself, the ER physician - All imaging was reviewed and interpreted personally by myself, the ER physician. - Evaluation and treatment of this problem were appropriate in the emergency setting Lab Data 01/29/25 13:20 01/29/25 13:[address] 01/29/25 12:10 IMPRESSION: 1. No acute intracranial hemorrhage or edema. 2. Minimal cerebral atrophy and small vessel disease. Chest X-Ray 01/29/25 13:32 IMPRESSION: 1. No acute cardiopulmonary finding. Laboratory Results WBC 3.83 10^3/uL (3.29-11.43) 01/29/25 13:20 RBC 4.01 10^6/uL (3.85-5.65) 01/29/25 13:20 Hgb 13.30 g/dL (11.27-16.99) 01/29/25 13:20 Hct 37.1 % (37-53) 01/29/25 13:20 MCV 92.5 fl (82-101) 01/29/25 13:20 MCH 33.2 pg (27-33) H 01/29/25 13:20 MCHC 35.8 g/dL (30-55) 01/29/25 13:20 RDW 13.9 % (12.1-15.1) 01/29/25 13:20 Plt Count 156 10^3/cmm (157-399) L 01/29/25 13:20 MPV 9.3 fL (7.4-10.4) 01/29/25 13:20 Neut % (Auto) 62.6 % 01/29/25 13:20 Lymph % (Auto) 29.0 % 01/29/25 13:20 [place] % (Auto) 5.7 % 01/29/25 13:20 Eos % (Auto) 0.8 % 01/29/25 13:20 Baso % (Auto) 1.6 % 01/29/25 13:20 Neut # (Auto) 2.40 10^3/uL (1.8-7.7) 01/29/25 13:20 Lymph # (Auto) 1.1 10^3/uL (0.8-4.8) 01/29/25 13:20 [place] # (Auto) 0.2 10^3/uL (0.2-0.9) 01/29/25 13:20 Eos # (Auto) 0.0 10^3/uL (0.0-0.8) 01/29/25 13:20 Baso # (Auto) 0.1 10^3/uL (0.0-0.1) 01/29/25 13:20 Nucleated RBC % (auto) 0 % 01/29/25 13:20 Nucleated RBCs # 0.0 /100WBC 01/29/25 13:20 Specimen Type Arterial 01/29/25 13:04 Sample Site Brachial, right 01/29/25 13:04 ABG pH 7.38 (7.35-7.45) 01/29/25 13:04 ABG pCO2 38.6 mmHg (35-45) 01/29/25 13:04 ABG pO2 90.9 mmHg (80.0-100.0) 01/29/25 13:04 ABG PO2/FiO2 Ratio 432 01/29/25 13:04 ABG HCO3 22.9 mmol/L (22-26) 01/29/25 13:04 ABG O2 Saturation 97.7 01/29/25 13:04 ABG Base Excess -2.0 mmol/L (-2.0-2.0) 01/29/25 13:04 Lucio Test Pos 01/29/25 13:04 A-a O2 Gradient 1.3 mmHg (5-10) L 01/29/25 13:04 Hematocrit 39.2 % (42-52) L 01/29/25 13:04 Hgb O2 Saturation 95.7 % (95-100) 01/29/25 13:04 Carboxyhemoglobin 0.9 %THgb (0.4-20.1) 01/29/25 13:04 Methemoglobin 1.2 % (0.4-1.5) 01/29/25 13:04 Total Hemoglobin 12.8 g/dL (14-18) L 01/29/25 13:04 Sodium 137.0 mmol/L (131-143) 01/29/25 13:04 Potassium 3.9 mmol/L (3.5-5.0) 01/29/25 13:04 Glucose 125.0 mg/dL (70-115) H 01/29/25 13:04 Ionized Calcium 1.2 mmol/L (1.1-1.4) 01/29/25 13:04 O2 Delivery Device Room air 01/29/25 13:04 FiO2 21.0 % 01/29/25 13:04 Poultry Cutter ID [place] 01/29/25 13:04 Sodium 138 mmol/L (136-145) 01/29/25 13:20 Potassium 4.0 mmol/L (3.5-5.1) 01/29/25 13:20 Chloride 103 mmol/L (98-107) 01/29/25 13:20 Carbon Dioxide 22 mmol/L (22-29) 01/29/25 13:20 Anion Gap 17.0 (5-19) 01/29/25 13:20 BUN 13 mg/dL (6-20) 01/29/25 13:20 Creatinine 1.0 mg/dL (0.7-1.2) 01/29/25 13:20 GFR Calculation 79.8 mL/min (90-130) L 01/29/25 13:20 Glucose 121 mg/dL (65-115) H 01/29/25 13:20 Calculated Osmolality 287 mOsm/kg (285-295) 01/29/25 13:20 Lactic Acid 1.7 mmol/L (0.5-2.2) 01/29/25 13:20 Calcium 8.3 mg/dL (8.5-10.5) L 01/29/25 13:20 Total Bilirubin 1.0 mg/dL (0.15-1.2) 01/29/25 13:20 AST 17 U/L (0-40) 01/29/25 13:20 ALT 12 U/L (0-41) 01/29/25 13:20 Alkaline Phosphatase 56 U/L (40-130) 01/29/25 13:20 Troponin T Baseline 17 ng/L (0-15) H 01/29/25 13:20 Troponin T 120 Minute 14.35 ng/L (0-15) 01/29/25 15:17 Delta Troponin T -2.65 ABS# (0-10) L 01/29/25 15:17 C-Reactive Protein 4.4 mg/L (0.0-4.9) 01/29/25 13:20 NT-Pro-B Natriuret Pep 599 pg/mL (0-125) H 01/29/25 13:20 Total Protein 6.0 g/dL (6.6-8.7) L 01/29/25 13:20 Albumin 3.5 g/dL (3.5-5.2) 01/29/25 13:20 Globulin 2.5 g/dL (1.3-4.6) 01/29/25 13:20 Procalcitonin 0.11 ng/mL (0-0.5) 01/29/25 13:20 Urine Color Yellow (Yellow) 01/29/25 16:16 Urine Appearance Clear (CLEAR) 01/29/25 16:16 Urine pH 5.5 (5-7) 01/29/25 16:16 Ur Specific [place] 1.013 (1.005-1.030) 01/29/25 16:16 Urine Protein Negative (Negative) 01/29/25 16:16 Urine Glucose (UA) Negative (Normal) 01/29/25 16:16 Urine Ketones Negative (Negative) 01/29/25 16:16 Urine Blood Trace (Negative) A 01/29/25 16:16 Urine Nitrate Negative (Negative) 01/29/25 16:16 Urine Bilirubin Negative (Negative) 01/29/25 16:16 Urine Urobilinogen 0.2 mg/dL (Negative) 01/29/25 16:16 Ur Leukocyte Esterase Negative (Negative) 01/29/25 16:16 Urine RBC 0-2 /hpf (0-2) 01/29/25 16:16 Urine WBC 0-5 /hpf (0-5) 01/29/25 16:16 Ur Squamous Epith Cells 0-5 /hpf (0-5) 01/29/25 16:16 Amorphous Sediment Not Reportable 01/29/25 16:16 Urine Bacteria None seen /hpf (NONE) 01/29/25 16:16 Hyaline Casts 4.52 /lpf 01/29/25 16:16 All radiology interpretation(s) finalized by discharge Discharge Plan Discharge Patient Disposition: Placed in Observation Clinical Impression: Somnolence, Medication side effect, Dehydration, Oliguria Coding Level of Care Code ED Hospice Director for Nga Rondon
[2025-01-29 13:15] LABS: ABG PCO2 38.6 mmHg (35-45); ABG PH Result 7.38 (7.35-7.45); Alveolar-Arterial Oxygen Gradi 1.3 mmHg (5-10); Arterial Blood Gas Hematocrit 39.2 % (42-52); Blood Gas Allen Test Pos; Blood Gas Operator Identificat WALCI; Blood Gas Sample Site Brachial, right; Blood Gas Sample Type Arterial; Carboxyhemoglobin 0.9 %THgb (0.4-20.1); Glucose Level-ABG 125.0 mg/dL (70-115); HCO3 ABG 22.9 mmol/L (22-26); Ionized Calcium Level - ABG 1.2 mmol/L (1.1-1.4); Methemoglobin 1.2 % (0.4-1.5); Oxygen Saturation ABG 97.7; PO2 ABG 90.9 mmHg (80.0-100.0); PO2 FiO2 Ratio Arterial Blood 432; Potassium Level - ABG 3.9 mmol/L (3.5-5.0); Sodium Level - ABG 137.0 mmol/L (131-143)
--- OUTSIDE RECORDS SUMMARY | 2025-01-29 13:23 | XMS_ITS | Clinical Summary ---
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 Gender Identity Not on file Sexual Orientation Not on file Last Filed Vital Signs Vital Sign Reading Time Taken Comments Blood Pressure 106/63 03/17/2023 6:45 PM AUTO REPAIR SHOP MANAGER Pulse 66 03/17/2023 6:50 PM AUTO REPAIR SHOP MANAGER Temperature 36.8 C (98.2 F) 03/17/2023 5:50 PM AUTO REPAIR SHOP MANAGER Respiratory Rate 18 03/17/2023 5:50 PM AUTO REPAIR SHOP MANAGER Oxygen Saturation 99% 03/17/2023 6:50 PM AUTO REPAIR SHOP MANAGER Inhaled Oxygen Concentration - - Weight 63.5 kg (140 lb) 03/17/2023 5:50 PM AUTO REPAIR SHOP MANAGER Height 165.1 cm (5' 5 ) 03/17/2023 5:50 PM AUTO REPAIR SHOP MANAGER Body Mass Index 23.3 03/17/2023 5:50 PM AUTO REPAIR SHOP MANAGER Plan of Treatment Health Maintenance Due Date Last Done Comments DTAP/TDAP/TD VACCINES (1 - Tdap) 02/27/1995 HEPATITIS B VACCINES (1 of 3 - 19+ 3-dose series) 02/03 COLORECTAL SCREENING 02/27/2021 Colorectal Cancer Screening 02/27/2021 FIT-DNA Q 3 years 02/27/2021 FIT/FOBT Q 1 year 02/27/2021 Flex Sig/CT Colonography Q 5 years 02/27/2021 INFLUENZA VACCINE (#1) 2024 Insurance [place]ICAID [place]
--- NOTE | 2025-01-29 13:32 | XR_ITS ---
WS: [id number] Exam: XR chest 1V portable [id number] Date/Time of Exam: 01/29/2025 1:36 PM Reason For Exam: Weakness Comparison 01/26/2025. Lungs are fully expanded and clear. Cardiomediastinal silhouette unremarkable for technique. Status post median sternotomy. No pleural effusions. Bony structures are intact. XR/XR chest 1V portable [id number] IMPRESSION: 1. No acute cardiopulmonary finding.
[2025-01-29 13:43] LABS: Hematocrit 37.1 % (37-53); Hemoglobin 13.30 g/dL (11.27-16.99); Mean Corpuscular HGB Conc 35.8 g/dL (30-55); Mean Corpuscular Hemoglobin 33.2 pg (27-33); Mean Corpuscular Volume 92.5 fl (82-101); Nucleated Red Blood Cells % 0 %; Platelet Count 156 10^3/cmm (157-399); Red Blood Count 4.01 10^6/uL (3.85-5.65); White Blood Count 3.83 10^3/uL (3.29-11.43)
--- NOTE | 2025-01-29 13:45 | PC.NURSE ---
this RN attempted to straight cath patient, attempt unsuccessful. Dr. Hdz notified.
[2025-01-29 14:03] LABS: Lactic Sepsis W/Reflex 1.7 mmol/L (0.5-2.2)
[2025-01-29 14:04] LABS: Troponin(5th) Baseline 17 ng/L (0-15)
[2025-01-29 14:15] LABS: NT Pro B Type Natriuretic Pept 599 pg/mL (0-125); Procalcitonin 0.11 ng/mL (0-0.5)
[2025-01-29 14:26] LABS: Alanine Aminotransferase 12 U/L (0-41); Albumin Level 3.5 g/dL (3.5-5.2); Alkaline Phosphatase 56 U/L (40-130); Anion Gap 17.0 (5-19); Aspartate Amino Transferase 17 U/L (0-40); Blood Urea Nitrogen 13 mg/dL (6-20); Calcium 8.3 mg/dL (8.5-10.5); Carbon Dioxide 22 mmol/L (22-29); Chloride 103 mmol/L (98-107); Globulin 2.5 g/dL (1.3-4.6); Glucose 121 mg/dL (65-115); Osmolality Calculated 287 mOsm/kg (285-295); Potassium 4.0 mmol/L (3.5-5.1); Sodium 138 mmol/L (136-145); Total Protein 6.0 g/dL (6.6-8.7)
--- NOTE | 2025-01-29 14:28 | ECG_ITS ---
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1975 Requested By: Gi Cooper Order Number: [id number] Norm MD: MANUEL SOLIMAN Measurements Intervals [place] Rate: 60 P: 59 MN: 222 QRS: 37 QRSD: 126 T: 46 QT: 470 QTc: 473 Interpretive Statements SINUS RHYTHM WITH FIRST DEGREE AV BLOCK POSSIBLE LEFT ATRIAL ENLARGEMENT [-0.1mV P-WAVE IN V1/V2] POSSIBLE RIGHT VENTRICULAR CONDUCTION DELAY [RSR (QR) IN V1/V2] SEPTAL MYOCARDIAL INFARCTION , PROBABLY OLD [40+ ms Q WAVE IN V1/V2] Compared to ECG 01/29/2025 12:10:20 Sinus bradycardia no longer present Myocardial infarct finding still present Electronically Signed On 02-02-2025 21:13:35 CDT by MANUEL SOLIMAN [id number]
[2025-01-29 15:54] LABS: Troponin 5 2HR 14.35 ng/L (0-15)
[2025-01-29 15:55] LABS: Troponin 5 2HR Delta -2.65 ABS# (0-10)
[2025-01-29 16:26] LABS: Glucose Urine UA Negative (Normal); Nitrate Urine Negative (Negative); Specific Gravity, Urine 1.013 (1.005-1.030)
[2025-01-29 16:45] LABS: UA Slide Review UA Slide Review Perf
--- NOTE | 2025-01-29 17:30 | CTR_ITS ---
PROCEDURE INFORMATION: Exam: CT Chest With Contrast; Diagnostic Exam date and time: 01/29/2025 11:38 PM Age: 49 years old Clinical indication: Pain; Other: Back; Other: SOB; Additional info: SOB, weakness, back pain TECHNIQUE: Imaging protocol: Diagnostic computed tomography of the chest with contrast. Radiation optimization: All CT scans at this facility use at least one of these dose optimization techniques: automated exposure control; mA and/or kV adjustment per patient size (includes targeted exams where dose is matched to clinical indication); or iterative reconstruction. Contrast material: OMNI 350; Contrast volume: 100 ml; Contrast route: INTRAVENOUS (IV); COMPARISON: CR XR chest 1V portable [id number] 01/29/2025 1:38 PM RADIATION DOSE METRICS: Total DLP (mGy-cm): 735.58 FINDINGS: Limitations: There is motion artifact due to patient inability to cooperate which limits assessment. Thyroid: Thyroid not visualized and may be resected or congenitally absent. Lungs: 2 mm calcified granuloma periphery of right lung base series 4, image 51. The remaining lungs are clear. Pleural spaces: Unremarkable. No pneumothorax. No pleural effusion. Heart: Unremarkable. No cardiomegaly. No pericardial effusion. Lymph nodes: Unremarkable. No enlarged lymph nodes. Vasculature: Unremarkable. No aortic aneurysm. Bones/joints: The patient is status post median sternotomy. Mild S shaped scoliosis and spondylosis. No acute bony abnormality. Soft tissues: Unremarkable. PROCEDURE INFORMATION: Exam: CT Abdomen And Pelvis With Contrast Exam date and time: 01/29/2025 11:38 PM Age: 49 years old Clinical indication: Pain; Other: Back; Other: SOB; Additional info: SOB, weakness, back pain TECHNIQUE: Imaging protocol: Computed tomography of the abdomen and pelvis with contrast. Radiation optimization: All CT scans at this facility use at least one of these dose optimization techniques: automated exposure control; mA and/or kV adjustment per patient size (includes targeted exams where dose is matched to clinical indication); or iterative reconstruction. Contrast material: OMNI 350; Contrast volume: 100 ml; Contrast route: INTRAVENOUS (IV); COMPARISON: CT abdomen pelvis w con* [id number] 12/04/2024 1:54 PM RADIATION DOSE METRICS: Total DLP (mGy-cm): 735.58 FINDINGS: Limitations: There is motion artifact due to patient inability to cooperate which limits assessment. Lungs: Visualized lung bases are clear. Liver: Normal. No mass. Gallbladder and biliary ducts: Normal. No calcified stones. No ductal dilation. Pancreas: Normal. No ductal dilation. Spleen: Normal. No splenomegaly. Adrenal glands: Normal. No mass. Kidneys and ureters: Mild bilateral hydronephrosis versus extrarenal pelvises. No significant hydroureter appreciated. Stomach and bowel: Gaseous distension of the transverse colon consistent with nonspecific ileus. No bowel wall thickening or obstruction identified. Appendix: The appendix is not visualized however there are no inflammatory changes in the right lower quadrant to suggest appendicitis. Intraperitoneal space: Unremarkable. No free air. No significant fluid collection. Vasculature: Unremarkable. No abdominal aortic aneurysm. Lymph nodes: Unremarkable. No enlarged lymph nodes. Urinary bladder: The urinary bladder is distended. Reproductive: Unremarkable as visualized. Bones/joints: Mild scoliosis and cxor-jw-zoglnncb spondylosis. 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 Soft tissues: Unremarkable. CT/CT chest abdpel w/*[id number] IMPRESSION: 1. Motion artifact limits assessment. 2. No acute process identified. 3. Recommend correlation with the accompanying CT abdomen pelvis report for further details. IMPRESSION: 1. Motion artifact limits assessment. 2. No acute process identified. 3. Bilateral hydronephrosis versus extrarenal pelvis sees. No significant hydroureter. 4. Recommend correlation with the body the report for further details regarding additional nonemergent findings. 5. The urinary bladder is distended.
--- NOTE | 2025-01-29 17:37 | USCV_ITS ---
Luis Asa Age: 49 Gender: M : 1975 Exam Date: 01/29/2025 20:24 Ordering Phys: Paresh Zabala MD Technologist: SABAS [place] [facility] [place]ication: altered mental status in a 49 y.o. patient with Down syndrome Risk Factors: altered mental status in a 49 y.o. patient with Down syndrome Previous Vascular Surgery: unknown Right Brachial BP: 91 / 55 Left Brachial BP: / Right Left Velocity (cm/s) Spectral Plaque Velocity (cm/s) Spectral Plaque Syst/Diast Broadening Syst/Diast Broadening 94.40/ 15.40 None None Prox CCA 79.50 / 16.60 None None 85.40/ 21.90 Min Homo Mid CCA 85.90 / 16.60 Min Homo 73.70/ 19.30 None Homo Distal CCA 73.10 / 12.70 Min Homo 68.50/ 28.40 Min Homo Prox ICA 78.30 / 27.70 Min Homo 89.30/ 36.10 Min Homo Mid ICA 66.90 / 23.90 Min Homo 72.40/ 27.10 Min Homo Distal ICA 70.00 / 25.00 Min Homo 99.60 Min Homo ECA 74.10 None Homo 1.20 ICA/CCA 1.10 Antegrade Vertebral Antegrade 55.60/ 15.40 cm/s 37.10/ 7.60 cm/s Tri Subclavian Tri 85.40 94.40 FINDINGS Comparison: none available. No significant elevation of systolic or diastolic velocities. Waveforms are normal. No significant amount of calcified plaque or intimal thickening identified. CONCLUSIONS Normal carotid doppler ultrasound. Dr. Jeanna Baird DO (Electronically Signed) Final Date: 30 January 2025 08:05 S
--- NOTE | 2025-01-29 17:37 | USCV_ITS ---
Asa Smith Age: 49 Gender: M : 1975 Exam Date: 01/29/2025 20:44 Ordering Phys: Paresh Zabala MD Technologist: SABAS [place] [facility] [place]ication: altered mental status in a 49 y.o Down syndrome patient. This is a technically difficult study due to pt inability to understant or cooperate, requiring nursing assistance to perform this exam. BP: 91 / 55 HR: 62 Rhythm: Sinus Technical Quality: Technically difficult study MEASUREMENTS (Male / Female) Normal Values 2D ECHO LV Diastolic Diameter PLAX 3.9 cm 4.2 - 5.9 / 3.9 - 5.3 cm IVS Diastolic Thickness 1.3 cm 0.6 - 1.0 / 0.6 - 0.9 cm IVS Systolic Thickness 1.4 cm LVPW Diastolic Thickness 1.2 cm 0.6 - 1.0 / 0.6 - 0.9 cm LVPW Systolic Thickness 1.3 cm LVOT Diameter 2.1 cm LV Ejection Fraction 2D Teich 72.3 % LV Ejection Fraction MOD 4C 77.8 % LV Ejection Fraction MOD 2C 76.1 % LV Ejection Fraction 2C AL 76.4 % LA Diameter 3.7 cm Aorta at Sinotubular Diameter 2.8 cm IVC Diameter 1.8 cm M-MODE LA Ao Ratio MM 1.1 AV Cusp Separation MM 1.5 cm DOPPLER AV Peak Velocity 235.0 cm/s LVOT Peak Velocity 67.0 cm/s AV Area Cont Eq vti 0.9 cm squared AV Area Cont Eq pk 1.0 cm squared MV Peak Velocity 190.0 cm/s MV Area PHT 4.2 cm squared Mitral E to A Ratio 2.2 TR Peak Velocity 309.0 cm/s TR Peak Gradient 38.2 mmHg TV Peak E Velocity 55.0 cm/s PV Peak Velocity 184.0 cm/s FINDINGS Left Ventricle Normal left ventricular size. Hyperdynamic left ventricular systolic function with normal left ventricular ejection fraction of 77%. Mild concentric left ventricular hypertrophy. Normal left ventricular diastolic function. Small ventricular septal defect evident by abnormal color flow by Doppler and a left to right direction across the basal ventricular septum. Right Ventricle Normal right ventricular size and systolic function. Mild pulmonary hypertension, PASP 41 mmHg. Right Atrium Normal right atrial size. Left Atrium Normal left atrial size. IA Septum Normal appearance of the interatrial septum. Mitral Valve Mild thickening of the mitral valve leaflets with mild prolapse of the anterior mitral valve leaflet. Severe mitral valve regurgitation. No mitral valve stenosis. Aortic Valve The aortic valve is not well-visualized. Doppler findings consistent with moderate aortic valve stenosis. No aortic valve regurgitation. Tricuspid Valve Normal tricuspid valve structure. Mild tricuspid valve regurgitation Pulmonic Valve Pulmonic valve not well-visualized. Velocities consistent with mild pulmonic valve stenosis with a peak pressure gradient of 13.5 mmHg. No pulmonic valve regurgitation. Pericardium No pericardial effusion. Aorta Normal diameter of the aortic root and proximal ascending thoracic aorta. IVC Normal IVC diameter. CONCLUSIONS Normal left ventricular size. Hyperdynamic left ventricular systolic function. EF 77%. Mild concentric left ventricular hypertrophy Normal right ventricular size and systolic function. Aortic valve not well-visualized. Velocities consistent with moderate aortic valve stenosis Basal septal ventricular septal defect with small ulwx-bx-yskrk shunt Severe mitral valve regurgitation Mild pulmonic valve stenosis Mild pulmonary hypertension, PASP 41 mmHg Recommend transesophageal echocardiogram for better visualization if clinically appropriate. Juan Alberto Herndon MD, FACC (Electronically Signed) Final Date: 30 January 2025 18:47 S
--- NOTE | 2025-01-29 17:37 | PM.HP ---
Providers/Chief Complaint Admitting Physician: Paresh Zabala MD Chief Complaint: Lethargic History of Present Illness Asa Smith is a 49 year old male past medical history of Down syndrome, history of esophageal stricture with recent history of esophageal dilatation, hypothyroidism, who presents to [facility] for altered mental status, generalized weakness, somnolence, not been walking for the last few days. Currently patient alert and oriented x 0, he does not follow commands, does awaken but falls back asleep blood pressure 91/55, pulse of 61, respiratory 16, temperature 97.7 100% on room air, GCS score is 10, he withdraws from pain, opens eyes spontaneously, incomprehensible sounds, pupils equal round reactive to light, according to mother he had his esophagus stretched back in January 04 since then he has not been his normal self, decreased oral appetite he has had generalized weakness, decreased ability to walk, he was here in the emergency room on January 26, he had a fall at that time, according to mom, he has not had any pain complaints, head CT within normal limits, is diagnosed with a UTI, and sent home, since then he continues to have generalized confusion, inability to walk, decreased oral appetite, no fevers, no cough, no new rashes, he had diarrhea a few days ago, none since then Review of Systems General: Reports: ROS unobtainable due to mental status Medications/Allergies Home Medications ?Medication ?Instructions ?Recorded ?Confirmed ?Last Taken ?Type albuterol sulfate 90 mcg/actuation 2 inh inhalation Q4H PRN shortness 07/22/22 01/29/25 Unknown Rx aerosol inhaler of breath or wheezing #18 grams levothyroxine 75 mcg tablet 75 mcg PO DAILY 12/04/24 01/29/25 01/29/25 History (Synthroid) cefdinir 300 mg capsule 300 mg PO BID #14 caps 01/27/25 01/29/25 01/29/25 Rx mirtazapine 7.5 mg tablet 7.5 mg PO DAILY #30 tabs 01/27/25 01/29/25 01/29/25 Rx omeprazole 20 mg capsule,delayed 20 mg PO DAILY 01/29/25 01/29/25 01/29/25 History release Allergies Allergy/AdvReac Type Severity Reaction Status Date / Time No Known Allergies Allergy Verified 12/04/24 12:46 PFSH Acute PFSH: Medical History Helicobacter pylori gastritis Hypothyroidism Down syndrome Esophageal stricture Surgical History History of open heart surgery 2019 History of colonoscopy History of esophagogastroduodenoscopy (EGD) 2019 History of esophagogastroduodenoscopy (EGD) 10/15/21 Family History Other CAD (coronary artery disease) Diabetes Denies family history of Dementia Anesthesia complication Lung disease Cancer Stroke Social History Smoking and tobacco/nicotine status: never used tobacco/nicotine Alcohol intake: never Substance/Drug Use: never Caregiver/support person: Yes Lives independently: No Household members: other Details: mother Marital status: Single Vitals/I&O/Wt Last Vital Signs Temp 97.7 F 01/29/25 12:03 Pulse 61 01/29/25 12:03 Resp 16 01/29/25 12:03 BP 91/55 01/29/25 12:03 Pulse Ox 100 01/29/25 12:03 O2 Del Method Room Air 01/29/25 12:03 Physical Exam Const: COMMON NORMALS: no acute distress EXAM LIMITATIONS: altered mental status ORIENTATION/CONSCIOUSNESS: Yes awake and Yes confused; not oriented to person, not oriented to place and not oriented to time Eye: COMMON NORMALS: Equal, round and reactive pupils present Neck/C-Spine: COMMON NORMALS: full ROM, no lymphadenopathy and no meningeal signs Resp: COMMON NORMALS: normal respiratory effort, No retractions, No use of accessory muscles and clear to auscultation bilaterally AUSCULTATION: clear to auscultation bilaterally Cardio: COMMON NORMALS: regular rate, regular rhythm, S1 normal heart sound present and S2 normal heart sound present RATE: regular rate RHYTHM: regular rhythm HEART SOUNDS: S1 normal heart sound present and S2 normal heart sound present GI: COMMON NORMALS: Normal to inspection, nondistended, normoactive bowel sounds present, Soft to palpation and non-tender : OTHER: No CVA tenderness Extremity: COMMON NORMALS: no calf tenderness Neuro: OTHER: Does not follow neurologic testing Data 01/29/25 13:20 01/29/25 13:20 Micro: Microbiology 01/29/25 13:16 Blood Culture - Preliminary Blood SPECIMEN COLLECTED 01/29/25 13:16 Blood Culture - Preliminary Blood SPECIMEN COLLECTED A&P Assessment and plan 1. Altered mental status: Plan: Altered mental status -Etiology unclear -CT head no acute findings -Lactic acid within normal limits -CRP Pro-Dick within normal limits -UA within normal limits -Chest x-ray within normal limits -No leukocytosis - Does have some thrombocytopenia - CT chest abdomen pelvis -CT chest to evaluate for atlantoaxial instability -Cardiac echo, carotid artery ultrasound -Will place on broad-spectrum antibiotic therapy -Await blood cultures -Known history of seizures, no clinical history related to seizures - Alcohol level, urine toxicology screen, TSH -IV fluids - Full code - Lovenox for DVT prophylaxis PDMP PDMP Reviewed: Not Reviewed Attestations Medical Necessity Statement*: Patient requires hospitalization, inpatient, greater than 2 midnights, for altered mental status Diagnoses Altered mental status R41.82
--- NOTE | 2025-01-29 17:49 | CTR_ITS ---
PROCEDURE INFORMATION: Exam: CT Cervical Spine Without Contrast Exam date and time: 01/29/2025 11:35 PM Age: 49 years old Clinical indication: Condition or disease; Other: Downs syndrome atlanto-xial instability TECHNIQUE: Imaging protocol: Computed tomography of the cervical spine without contrast. Radiation optimization: All CT scans at this facility use at least one of these dose optimization techniques: automated exposure control; mA and/or kV adjustment per patient size (includes targeted exams where dose is matched to clinical indication); or iterative reconstruction. COMPARISON: CT head wo con* [id number] 01/29/2025 12:57 PM RADIATION DOSE METRICS: Total DLP (mGy-cm): 173.87 FINDINGS: Bones: There is diffuse osteopenia which somewhat limits bony assessment. Vertebral bodies are normal in height. C7-T1 grade 1 anterolisthesis without spondylolysis. Remaining bony alignment within normal limits. 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 Multisegmental foraminal stenosis of variable degree. No significant bony canal stenosis. No radiographic evidence of disc herniation. Lungs: Lung apices are normal. Soft tissues: Unremarkable. CT/CT cervical spin wo con* [id number] IMPRESSION: 1. No acute process or radiographic evidence of atlanto-axial instability. 2. C7-T1 grade 1 anterolisthesis without spondylolysis. 3. Diffuse spondylosis as described.
--- NOTE | 2025-01-29 17:59 | PC.NURSE ---
This nurse took report from SIVA Lamb in ER at 0905.
[2025-01-29 18:06] LABS: Respiratory Syncytial Virus Ce NEGATIVE (Negative); SARS-CoV-2 PCR NEGATIVE (Negative)
[2025-01-29] MEDS: pantoprazole 40 mg SDV IVP (18:19)
--- NOTE | 2025-01-29 18:21 | ECG_ITS ---
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
[2025-01-29 18:23] LABS: Thyroid Stimulating Hormone 2.46 uIU/mL (0.27-4.20)
[2025-01-29 18:25] LABS: Acetaminophen < 5.0 ug/mL (10-30); Alcohol Level < 10 mg/dL (0-10); Salicylate < 0.3 mg/dL (3-10)
[2025-01-29 18:34] LABS: Cholesterol 133 mg/dL (0-200); HDL Cholesterol 36 mg/dL (60-100); Triglycerides 93 mg/dL (0-150)
[2025-01-29 18:53] LABS: PCP Screen Urine Negative (Negative)
--- NOTE | 2025-01-29 18:57 | PHA.VACGOAL ---
Vancomycin Goal - Goal Vancomycin Goal:: 15-20 mg/L Vancomycin Indication:: Other - Therapy Current therapy:: Pip/Tazo Day of therpy:: Day []of [] . Actual body weight (kg): 116 lb 5 oz - Data Labs: WBC 3.83 10^3/uL (3.29-11.43) 01/29/25 13:20 RBC 4.01 10^6/uL (3.85-5.65) 01/29/25 13:20 Hgb 13.30 g/dL (11.27-16.99) 01/29/25 13:20 Hct 37.1 % (37-53) 01/29/25 13:20 MCV 92.5 fl (82-101) 01/29/25 13:20 MCH 33.2 pg (27-33) H 01/29/25 13:20 MCHC 35.8 g/dL (30-55) 01/29/25 13:20 RDW 13.9 % (12.1-15.1) 01/29/25 13:20 Sodium 138 mmol/L (136-145) 01/29/25 13:20 Potassium 4.0 mmol/L (3.5-5.1) 01/29/25 13:20 Chloride 103 mmol/L (98-107) 01/29/25 13:20 Carbon Dioxide 22 mmol/L (22-29) 01/29/25 13:20 Anion Gap 17.0 (5-19) 01/29/25 13:20 BUN 13 mg/dL (6-20) 01/29/25 13:20 Creatinine 1.0 mg/dL (0.7-1.2) 01/29/25 13:20 GFR Calculation 79.8 mL/min (90-130) L 01/29/25 13:20 Last dialysis session:: N/A Treatment plan:: new consult Regimen:: OFFICIAL DIAGNOSIS UNKNOWN. PATIENT PRESENTING WITH ALTERED MENTAL STATUS. NO SIGNS OF UTI. GAVE 1500 MG FOR LOADING DOSE PER PROTOCOL. ORDERED 500 MG Q12H MAINTENANCE DOSE TO START AT 0700 ON 01/30/25. WILL CONTINUE TO MONITOR DAILY AND PLAN TO DRAW TROUGH PRIOR TO 4TH DOSE.
[2025-01-29 19:57] LABS: Estmated Average Glucose 97; Hemoglobin A1C 5.0 % (4.0-6.0)
[2025-01-29 20:10] LABS: Troponin 5 6HR 15.45 ng/L (0-15)
[2025-01-29 20:11] LABS: Ammonia 14 umol/L (16-60)
[2025-01-29 20:12] LABS: Troponin 5 6HR Delta -1.55 ng/L (0-12)
[2025-01-29] MEDS: piperacillin-tazobactam 3.375 GM in sodium chloride 0.9% (plus) 50 ML IV (22:18)
[2025-01-29] MEDS: iohexol 350 mg/mL 500 mL Btl (per mL) IV (23:57)
[2025-01-30] VITALS (7 sets, daily range): BP systolic 93–102; BP diastolic 56–72; PULSE 77–88; RESP 16–18; TEMP 36.1–37.2; O2SAT 94–100
--- NOTE | 2025-01-30 04:26 | NUR.SHIFT ---
This nurse got orders from the hospitalist hany to place a lindsay catheter on this patient due to urinary retention. This nurse then attempted to reach out to patients guardian two times. Guardian didn't meat pickler the phone. Voicemail was left.
[2025-01-30 05:36] LABS: Hematocrit 35.0 % (37-53); Hemoglobin 12.40 g/dL (11.27-16.99); Mean Corpuscular HGB Conc 35.4 g/dL (30-55); Mean Corpuscular Hemoglobin 32.8 pg (27-33); Mean Corpuscular Volume 92.6 fl (82-101); Nucleated Red Blood Cells % 0 %; Platelet Count 145 10^3/cmm (157-399); Red Blood Count 3.78 10^6/uL (3.85-5.65); White Blood Count 4.42 10^3/uL (3.29-11.43)
[2025-01-30] MEDS: piperacillin-tazobactam 3.375 GM in sodium chloride 0.9% (plus) 50 ML IV ×3 (05:40→20:13)
[2025-01-30 05:55] LABS: Alanine Aminotransferase 11 U/L (0-41); Albumin Level 2.9 g/dL (3.5-5.2); Alkaline Phosphatase 50 U/L (40-130); Anion Gap 16.3 (5-19); Aspartate Amino Transferase 17 U/L (0-40); Blood Urea Nitrogen 12 mg/dL (6-20); Calcium 8.1 mg/dL (8.5-10.5); Carbon Dioxide 19 mmol/L (22-29); Chloride 104 mmol/L (98-107); Creatinine Clr Calc Pharmacy 93.2784; Globulin 2.5 g/dL (1.3-4.6); Glucose 114 mg/dL (65-115); Osmolality Calculated 281 mOsm/kg (285-295); Potassium 4.3 mmol/L (3.5-5.1); Sodium 135 mmol/L (136-145); Total Protein 5.4 g/dL (6.6-8.7)
[2025-01-30] MEDS: vancomycin 500 MG in sodium chloride 0.9% (plus) 100 ML 200 MG IV ×2 (07:17→17:02)
--- NOTE | 2025-01-30 08:01 | US_ITS ---
WS: [id number] RENAL ULTRASOUND HISTORY: bilateral hydropnehrosis COMPARISON: CT 01/29/2025 TECHNIQUE: 2-D and color Doppler imaging of the kidney submitted. Right kidney: 7.7 cm x 3.5 cm x 3.3 cm. Cortex: 0.9 cm Atrophy RIGHT kidney. Mild cortical thinning. No obstruction. Left kidney: 8.4 cm x 4.0 cm x 3.9 cm. Cortex: 0.9 cm Low normal size kidney with cortical thinning. No obstruction. No mass. Aorta: Normal. Urinary Bladder: Urinary bladder is moderately distended. There is a Velasquez catheter balloon within the urinary bladder. US/US renal BI* [id number] IMPRESSION: 1. RIGHT renal atrophy and low normal size LEFT kidney. 2. No hydronephrosis. 3. Velasquez catheter present in a mildly distended bladder. Bladder has significa ntly decreased in size since the CT of 01/29/2025.
--- NOTE | 2025-01-30 10:00 | PC.CHAP ---
Pastoral Care Encounter/Spiritual Assessment Type of Contact [] Declined after school driver visit [] Patient/Family/Request visit [] Outpatient visit [] Follow-up visit [] Physician referral [] Code/Alert [x] Routine visit [] Staff referral [] Actively dying [x] Patient sleeping [] Family support [] [] Out of room [] Palliative care [] [] Receiving care in room [] Pre-surgical visit [] Trauma [] Long length of stay [] ICU visit [] Other: Relational/Emotional Strength [] Patient feels connected with others/family/visitors/staff [] Distress [] Loneliness/isolation [] Abandonment Spirituality of Patient [] Person of Rubia [] Attends Evangelical of their Rubia [] Believes in Prayer [] Reads Bible or Mu-Ism materials [] There are Spiritual issues to be addressed [employer] Interventions [x] Prayer [] Active listening [x] Non-anxious presence [x] Spiritual/emotional support [] Crisis/trauma care [] Spiritual counseling [] Bereavement support [] Provided bereavement packet [] Provided Bible/devotional materials [] Provided toy/stuffed animal, coloring book to patient or family member [] Provided Communion [] Anointing/Delevan [] Salvation [x] Completed spiritual assessment [] Other: Impact on Illness or Injury [] Angry [] Fearful [] Anxious [] Often cries [] Exhaustion [] Unable to work [] Unable to attend confucianism [] Unable to walk/stand [] Unable to read [] Unable to drive [] Unable to eat/drink [] Unable to sleep [] Unable to be with family [] Patient intubated [] Other: Summary Time spent with patient 5 min
--- NOTE | 2025-01-30 13:30 | P.PN_ITS ---
Vitals/I&O/Wt Last Vital Signs Temp 97 F L 01/30/25 11:10 Pulse 77 01/30/25 11:10 Resp 17 01/30/25 11:10 BP 93/59 01/30/25 11:10 Pulse Ox 99 01/30/25 11:10 O2 Del Method Room Air 01/30/25 11:10 01/29/25 01/30/25 01/30/25 22:59 06:59 14:59 Intake Total 1300 / 1300 50 / 1350 1210 / 1210 Output Total 800 / 800 550 / 550 Balance 1300 / 1300 -750 / 550 660 / 660 Weight last 48 hrs Weight 53.751 kg Weight 52.758 kg Physical Exam 2 Const: COMMON NORMALS: no acute distress ORIENTATION/CONSCIOUSNESS: Yes awake and Yes confused; not oriented to person, not oriented to place and not oriented to time Eye: COMMON NORMALS: Equal, round and reactive pupils present and EOMs intact bilaterally PUPIL: Yes Equal, round and reactive pupils present Resp: COMMON NORMALS: normal respiratory effort, No retractions, No use of accessory muscles and clear to auscultation bilaterally AUSCULTATION: clear to auscultation bilaterally Cardio: COMMON NORMALS: regular rate, regular rhythm, S1 normal heart sound present and S2 normal heart sound present RATE: regular rate RHYTHM: r egular rhythm HEART SOUNDS: S1 normal heart sound present and S2 normal heart sound present GI: COMMON NORMALS: Normal to inspection, nondistended, normoactive bowel sounds present and non-tender Extremity: COMMON NORMALS: no calf tenderness and no pedal edema Neuro: SENSORIUM/ORIENTATION: No oriented to person, No oriented to place and No oriented to time OTHER: Moves upper bilateral upper and lower extremities, spontaneously Urinary Catheter Management: Velasquez: Cath Placed During This Visit: yes Reason for Continuing Indwelling Catheter: Acute Urinary Retention or Obstruction Urinary Catheter Date of Insertion: 01/30/25 Urinary Catheter Time of Insertion: 04:30 Data 01/30/25 05:08 01/30/25 05:08 Micro: Microbiology 01/29/25 13:16 Blood Culture - Preliminary Blood SPECIMEN COLLECTED 01/29/25 13:16 Blood Culture - Preliminary Blood SPECIMEN COLLECTED A&P Assessment and plan 1. Altered mental status: Plan: Altered mental status -Etiology unclear -Perhaps postobstructive uropathy, CT scan showed distended bladder, with bilateral hydronephrosis, Velasquez catheter in place, renal ultrasound shows no hydronephrosis, -Mentation did improve to some degree but remains diffusely encephalopathic -CT head no acute findings -Lactic acid within normal limits -CRP Pro-Dick within normal limits -UA within normal limits -Chest x-ray within normal limits -No leukocytosis - Does have some thrombocytopenia - CT chest abdomen pelvis CT/CT chest abdpel w/*[id number] IMPRESSION: 1. Motion artifact limits assessment. 2. No acute process identified. 3. Recommend correlation with the accompanying CT abdomen pelvis report for further details. IMPRESSION: 1. Motion artifact limits assessment. 2. No acute process identified. 3. Bilateral hydronephrosis versus extrarenal pelvis sees. No significant hydroureter. 4. Recommend correlation with the body the report for further details regarding additional nonemergent findings. 5. The urinary bladder is distended. -CT chest to evaluate for atlantoaxial instability, negative -Cardiac echo -carotid artery ultrasound, normal -Will place on broad-spectrum antibiotic therapy -Await blood cultures -Known history of seizures, no clinical history related to seizures -urine toxicology screen within normal limits, TSH within normal limits -IV fluids -IV vancomycin -IV Zosyn - Full code - Lovenox for DVT prophylaxis PDMP PDMP Reviewed: Not Reviewed Attestations 2 Medical Necessity Statement*: Patient requires hospitalization for altered mental status Diagnoses Altered mental status R41.82
--- NOTE | 2025-01-30 13:36 | MRR_ITS ---
PROCEDURE INFORMATION: Exam: MR Head Without Contrast Exam date and time: 01/30/2025 4:39 PM Age: 49 years old Clinical indication: Altered mental status/memory loss; Additional info: AMS TECHNIQUE: Imaging protocol: Magnetic resonance imaging of the head without contrast. COMPARISON: CT head wo con* [id number] 01/29/2025 12:57 PM FINDINGS: Brain: The study is slightly compromised by motion artifact. There is physiologic calcification in the basal ganglia. Scattered mild microangiopathic white matter changes are seen in both occipital lobes in deep right frontal lobe. No restricted diffusion is present to indicate acute or subacute ischemic change. There is no visible intracranial mass lesion or findings of hemorrhage. Cerebral ventricles: Normal. No ventriculomegaly. Bones: Unremarkable. Paranasal sinuses: A chronic retention cyst is suggested in the right sphenoid sinus showing high T1 and T2 signal intensity, consistent with elevated protein levels. Mastoid air cells: Normal as visualized. No mastoid effusion. Orbital cavities: Unremarkable. Soft tissues: Unremarkable. MR/MR head wo con* [id number] IMPRESSION: 1. No evidence of acute intracranial pathology. 2. Mild microangiopathic white matter changes. No acute or subacute ischemic changes are seen and there are no visible mass lesions.
[2025-01-30] MEDS: LORazepam 2 mg/mL INJ 1 mL 0.5 MG IVP (16:15)
[2025-01-30] MEDS: pantoprazole 40 mg SDV IVP (17:02)
[2025-01-30] MEDS: thiamine 100 mg/mL 2mL SDV 200 MG IVP (18:07)
[2025-01-30] MEDS: folic acid 1 MG, multivitamin inj 10 ML, thiamine 100 MG in sodium chloride 0.9% 1,000 ML 252.8 MG IV (18:07)
--- NOTE | 2025-01-30 18:11 | PM.CONSULT ---
Providers/Reason For Consult Consulting Physician/Specialty*: Dr. Zabala Reason for Consult*: Persistent severe alteration of mental status Attending Physician: Paresh Zabala MD History of Present Illness History of Present Illness Asa Smith is a 49 year old male presented to the emergency department with somnolence and weakness. He was here 01/[address] Muniz with generalized weakness and he had not been able to eat or drink for some time. She was able his mother was able to get him to take some soup without vomiting. His laboratory exam at that time was pretty unremarkable and he did not appear to be dehydrated although his albumin was a little low at 3.1. He had a urinary tract infection. He returned on 01/29 with severe somnolence and had taken a fall and hit his head and had a bruise on his forehead. CT of the head was unremarkable. Chest x-ray was unremarkable. Laboratory results without elevation of white count, no anemia and kidney function not different. He received a liter of fluids and got admitted to the hospitalist. Dr. Zabala reports that since his admission yesterday afternoon he is not improving. I was not asked whether the patient should have an MRI and it turns out that was already done this afternoon and there was no answer there for Dr. Zabala. That was completed this afternoon and I did review the images which show changes of aging. Medications/Allergies Home Medications ?Medication ?Instructions ?Recorded ?Confirmed ?Last Taken ?Type albuterol sulfate 90 mcg/actuation 2 inh inhalation Q4H PRN shortness 07/22/22 01/29/25 Unknown Rx aerosol inhaler of breath or wheezing #18 grams levothyroxine 75 mcg tablet 75 mcg PO DAILY 12/04/24 01/29/25 01/29/25 History (Synthroid) cefdinir 300 mg capsule 300 mg PO BID #14 caps 01/27/25 01/29/25 01/29/25 Rx mirtazapine 7.5 mg tablet 7.5 mg PO DAILY #30 tabs 01/27/25 01/29/25 01/29/25 Rx omeprazole 20 mg capsule,delayed 20 mg PO DAILY 01/29/25 01/29/25 01/29/25 History release Allergies Allergy/AdvReac Type Severity Reaction Status Date / Time No Known Allergies Allergy Verified 12/04/24 12:46 Current Medications Generic Name Dose Route Start Last Admin Trade Name Freq PRN Reason Stop Dose Admin Enoxaparin Sodium 40 mg 01/29/25 17:30 01/30/25 15:45 Enoxaparin 40 Mg/0.4 Ml Syringe SUBCUT Not Given Q24H HARDY Sodium Chloride 1,000 mls @ 125 mls/hr 01/29/25 18:00 01/30/25 17:47 Sodium Chloride 0.9% IV 0 mls/hr .Q8H HRADY Infusion Piperacillin Sod/Tazobactam 50 mls @ 12.5 mls/hr 01/29/25 19:00 01/30/25 16:10 Sod 3.375 gm/ Sodium Chloride IV Infused Q8H HARDY Infusion Vancomycin HCl 500 mg/ Sodium 100 mls @ 200 mls/hr 01/30/25 07:00 01/30/25 17:38 Chloride IV Infused Q12H HARDY Infusion Folic Acid 1 mg/ Multivitamins 1,011.2 mls @ 252.8 mls/hr 01/30/25 17:32 01/30/25 18:07 10 ml/ Thiamine HCl 100 mg/ IV 01/30/25 21:31 252.8 mls/hr Sodium Chloride ONCE ONE Administration Levothyroxine Sodium 75 mcg 01/30/25 05:00 01/30/25 05:46 Levothyroxine 75 Mcg Tablet PO Not Given DAILY HARDY Pantoprazole Sodium 40 mg 01/29/25 17:30 01/30/25 17:02 Pantoprazole 40 Mg Sdv IVP 40 mg Q24H HARDY Administration Tamsulosin HCl 0.4 mg 01/30/25 08:05 01/30/25 08:40 Tamsulosin 0.4 Mg Capsule PO 0.4 mg DAILY HARDY Administration Thiamine HCl 200 mg 01/30/25 17:45 01/30/25 18:07 Thiamine 100 Mg/Ml 2ml Sdv IVP 200 mg Q8H HARDY Administration PFSH Acute PFSH: Medical History Helicobacter pylori gastritis Hypothyroidism Down syndrome Esophageal stricture Surgical History History of open heart surgery 2019 History of colonoscopy History of esophagogastroduodenoscopy (EGD) 2019 History of esophagogastroduodenoscopy (EGD) 10/15/21 Family History Other CAD (coronary artery disease) Diabetes Denies family history of Dementia Anesthesia complication Lung disease Cancer Stroke Social History Smoking and tobacco/nicotine status: never used tobacco/nicotine Alcohol intake: never Substance/Drug Use: never Caregiver/support person: Yes Lives independently: No Household members: other Details: mother Marital status: Single Vitals/I&O/Wt Last Vital Signs Temp 97.7 F 01/30/25 17:49 Pulse 85 01/30/25 17:49 Resp 18 01/30/25 17:49 BP 100/68 01/30/25 17:49 Pulse Ox 98 01/30/25 17:49 O2 Del Method Room Air 01/30/25 17:49 01/30/25 01/30/25 01/30/25 06:59 14:59 22:59 Intake Total 50 / 1350 1210 / 1210 1303.750 / 2513.750 Output Total 800 / 800 550 / 550 Balance -750 / 550 660 / 660 1303.750 / 1963.750 Weight last 48 hrs Weight 118 lb 8 oz Weight 116 lb 5 oz Physical Exam Narrative: My examination was performed at 8 PM on 01/30/2025. The patient was spontaneously awake with intermittent eye-opening. He did not make eye contact. He did not follow commands. There was no change in his random eye movements or random upper extremity movements associated with pressure on the nailbeds. I did not stimulate him to a severe degree but he did not appear to attend to pain. Diffusely decreased tone. Neck was supple. He had full eye movements. Facial movements appeared symmetric. Random movements were more brisk on the right than the left but he was moving both sides. HEENT no rash. Conjunctiva not injected. Neck was supple. Chest was clear. Heart sounds were normal Extremities without rash or deformities I looked at his MRI scan images after discussing with Dr. Pereira. Subtle FLAIR abnormalities in the rostral brainstem and medial thalamus. Urinary Catheter Management: Velasquez: Cath Placed During This Visit: yes Reason for Continuing Indwelling Catheter: Acute Urinary Retention or Obstruction Urinary Catheter Date of Insertion: 10/29/25 Urinary Catheter Time of Insertion: 04:30 Data 01/31/25 09:33 01/31/25 09:33 Micro: Microbiology 01/29/25 13:16 Blood Culture - Preliminary Blood NEGATIVE TO DATE 01/29/25 13:16 Blood Culture - Preliminary Blood NEGATIVE TO DATE A&P Assessment and plan 1. Metabolic encephalopathy: 49-year-old man with Down syndrome, at the upper limit of age of survival with this diagnosis who now presents with rapidly progressive nonfocal encephalopathy, weight loss and diffuse weakness. He has not been febrile. He has a nonfocal exam and an extensive neurologic evaluation including MRI of the brain shows no sign of stroke. He has FLAIR abnormalities that could suggest thiamine deficiency/Wernicke encephalopathy. I talked with Dr. Hobbs today who indicates that he has a good relationship with the patient's mother and that she wishes to pursue all possible avenues of diagnosis and possible treatment. I do not find anything focal on this patient and I suspect that with his somewhat diffuse nonspecific findings he may bounce back on his own. I am not hopeful that spinal fluid will shed further light on his condition. PDMP PDMP Reviewed: Not Reviewed Consult Attestations Medical Necessity Statement: Patient requires further evaluation of his altered mental status and diffuse weakness Coding Level of Care Code 27231 Diagnoses Metabolic encephalopathy G93.41
--- OUTSIDE RECORDS SUMMARY | 2025-01-30 20:24 | XMS_ITS | Clinical Summary ---
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 Gender Identity Not on file Sexual Orientation Not on file Last Filed Vital Signs Vital Sign Reading Time Taken Comments Blood Pressure 106/63 03/17/2023 6:45 PM SALES OPERATIONS SPECIALIST Pulse 66 03/17/2023 6:50 PM SALES OPERATIONS SPECIALIST Temperature 36.8 C (98.2 F) 03/17/2023 5:50 PM SALES OPERATIONS SPECIALIST Respiratory Rate 18 03/17/2023 5:50 PM SALES OPERATIONS SPECIALIST Oxygen Saturation 99% 03/17/2023 6:50 PM SALES OPERATIONS SPECIALIST Inhaled Oxygen Concentration - - Weight 63.5 kg (140 lb) 03/17/2023 5:50 PM SALES OPERATIONS SPECIALIST Height 165.1 cm (5' 5 ) 03/17/2023 5:50 PM SALES OPERATIONS SPECIALIST Body Mass Index 23.3 03/17/2023 5:50 PM SALES OPERATIONS SPECIALIST Plan of Treatment Health Maintenance Due Date Last Done Comments DTAP/TDAP/TD VACCINES (1 - Tdap) 02/27/1995 HEPATITIS B VACCINES (1 of 3 - 19+ 3-dose series) 02/03 COLORECTAL SCREENING 02/27/2021 Colorectal Cancer Screening 02/27/2021 FIT-DNA Q 3 years 02/27/2021 FIT/FOBT Q 1 year 02/27/2021 Flex Sig/CT Colonography Q 5 years 02/27/2021 INFLUENZA VACCINE (#1) 2024 Insurance [place]
[2025-01-31] VITALS (7 sets, daily range): BP systolic 90–128; BP diastolic 55–86; PULSE 67–80; RESP 15–20; TEMP 36.3–37.2; O2SAT 95–99
[2025-01-31] MEDS: thiamine 100 mg/mL 2mL SDV 200 MG IVP ×3 (01:02→16:31)
[2025-01-31] MEDS: piperacillin-tazobactam 3.375 GM in sodium chloride 0.9% (plus) 50 ML IV ×3 (04:07→22:09)
[2025-01-31] MEDS: vancomycin 500 MG in sodium chloride 0.9% (plus) 100 ML 200 MG IV ×2 (08:25→19:42)
[2025-01-31 09:45] LABS: Hematocrit 31.4 % (37-53); Hemoglobin 11.20 g/dL (11.27-16.99); Mean Corpuscular HGB Conc 35.7 g/dL (30-55); Mean Corpuscular Hemoglobin 32.5 pg (27-33); Mean Corpuscular Volume 91.0 fl (82-101); Nucleated Red Blood Cells % 0 %; Platelet Count 116 10^3/cmm (157-399); Red Blood Count 3.45 10^6/uL (3.85-5.65); White Blood Count 5.10 10^3/uL (3.29-11.43)
[2025-01-31 10:02] LABS: Alanine Aminotransferase 10 U/L (0-41); Albumin Level 2.7 g/dL (3.5-5.2); Alkaline Phosphatase 43 U/L (40-130); Anion Gap 16.7 (5-19); Aspartate Amino Transferase 19 U/L (0-40); Blood Urea Nitrogen 11 mg/dL (6-20); Calcium 7.8 mg/dL (8.5-10.5); Carbon Dioxide 19 mmol/L (22-29); Chloride 103 mmol/L (98-107); Creatinine Clr Calc Pharmacy 86.4079; Globulin 2.2 g/dL (1.3-4.6); Glucose 94 mg/dL (65-115); Osmolality Calculated 279 mOsm/kg (285-295); Potassium 3.7 mmol/L (3.5-5.1); Sodium 135 mmol/L (136-145); Total Protein 4.9 g/dL (6.6-8.7)
--- NOTE | 2025-01-31 13:49 | P.PN_ITS ---
Subjective 2 Subjective: - Patient was seen this morning, he is m uch more alert and awake this morning he smiles at me he is able to say his name Ruslan - Remains globally encephalopathic at ti mes, withdrawn, at times can follow commands, I cannot get much history or information from him - Reexamined at lunchtime he sitting up in a chair, having lunch, he is much more alert to person, not to place, to time, can follow commands he is smiling at his mom, - Discussed with mom at bedside - Discussed echocardiogram findings of m oderate aortic valve stenosis, ventral septal defect, [id number] shunt, - Potentially congenital heart defects c ould be playing a role to his weakness, his fatigue, and not exactly convinced that they are playing a role in terms of his mentation -discussed risk of benefits, of lumbar p uncture, she voiced understanding, all questions answered, agreed to proceed -discussed patient down syndrome, concer ns for progression of disease process such as Alzheimer dementia, prognosis of Alzheimer dementia, natural history of the disease, prognosis of down syndrome, morbidity and mortality of disease process -patient mother would like to proceed wi th further testing Vitals/I&O/Wt Last Vital Signs Temp 98.4 F 01/31/25 11:30 Pulse 80 01/31/25 11:30 Resp 16 01/31/25 11:30 BP 90/55 01/31/25 11:30 Pulse Ox 99 01/31/25 11:30 O2 Del Method Room Air 01/31/25 11:30 01/30/25 01/31/25 01/31/25 22:59 06:59 14:59 Intake Total 2314.950 / 3524.950 50 / 3574.950 1435 / 1435 Output Total 50 / 600 700 / 1300 550 / 550 Balance 2264.950 / 2924.950 -650 / 2274.950 885 / 885 Weight last 48 hrs Weight 59.903 kg Weight 53.751 kg Weight 52.758 kg Physical Exam 2 Const: COMMON NORMALS: no acute distress HENMT: OTHER: Alert to person, not to place, time can follow some commands Eye: OTHER: Pupils equal reactive to light Resp: COMMON NORMALS: normal respiratory effort, No retractions, No use of accessory muscles and clear to auscultation bilaterally AUSCULTATION: clear to auscultation bilaterally Cardio: COMMON NORMALS: regular rate, regular rhythm, S1 normal heart sound present and S2 normal heart sound present RATE: regular rate RHYTHM: r egular rhythm HEART SOUNDS: S1 normal heart sound present and S2 normal heart sound present GI: COMMON NORMALS: Normal to inspection, nondistended, normoactive bowel sounds present and non-tender Extremity: COMMON NORMALS: no pedal edema Neuro: OTHER: Moves bilateral upper or lower extremities, does not withdraw for pain does localize pain, Urinary Catheter Management: Velasquez: Cath Placed During This Visit: yes Reason for Continuing Indwelling Catheter: Acute Urinary Retention or Obstruction Urinary Catheter Date of Insertion: 01/30/25 Urinary Catheter Time of Insertion: 04:30 Data 01/31/25 09:33 01/31/25 09:33 Micro: Microbiology 01/29/25 13:16 Blood Culture - Preliminary Blood NEGATIVE TO DATE 01/29/25 13:16 Blood Culture - Preliminary Blood NEGATIVE TO DATE A&P Assessment and plan 1. Altered mental status: Plan: Altered mental status -Etiology unclear -Perhaps postobstructive uropathy, CT scan showed distended bladder, with bilateral hydronephrosis, Velasquez catheter in place, renal ultrasound shows no hydronephrosis, -Mentation did improve to some degree but remains diffusely encephalopathic -CT head no acute findings -Lactic acid within normal limits -CRP Pro-Dick within normal limits -UA within normal limits -Chest x-ray within normal limits -No leukocytosis - Does have some thrombocytopenia - CT chest abdomen pelvis CT/CT chest abdpel w/*[id number] IMPRESSION: 1. Motion artifact limits assessment. 2. No acute process identified. 3. Recommend correlation with the accompanying CT abdomen pelvis report for further details. IMPRESSION: 1. Motion artifact limits assessment. 2. No acute process identified. 3. Bilateral hydronephrosis versus extrarenal pelvis sees. No significant hydroureter. 4. Recommend correlation with the body the report for further details regarding additional nonemergent findings. 5. The urinary bladder is distended. -CT chest to evaluate for atlantoaxial instability, negative -Cardiac echo as below -carotid artery ultrasound, normal MR/MR head wo con* [id number] IMPRESSION: 1. No evidence of acute intracranial pathology. 2. Mild microangiopathic white matter changes. No acute or subacute ischemic changes are seen and there are no visible mass lesions. - Blood cultures so far no growth -Known history of seizures, no clinical history related to seizures -urine toxicology screen within normal limits, TSH within normal limits -IV fluids -IV vancomycin -IV Zosyn - Full code - Lovenox for DVT prophylaxis Congenital heart defect CONCLUSIONS Normal left ventricular size. Hyperdynamic left ventricular systolic function. EF 77%. Mild concentric left ventricular hypertrophy Normal right ventricular size and systolic function. Aortic valve not well-visualized. Velocities consistent with moderate aortic valve stenosis Basal septal ventricular septal defect with small [id number] shunt Severe mitral valve regurgitation Mild pulmonic valve stenosis Mild pulmonary hypertension, PASP 41 mmHg Recommend transesophageal echocardiogram for better visualization if clinically appropriate. plan for today coutinue IV thiamine, will order LP PDMP PDMP Reviewed: Not Reviewed Attestations 2 Medical Necessity Statement*: Patient requires hospitalization for altered mental status Diagnoses Altered mental status R41.82
[2025-01-31] MEDS: morphine 4 mg/mL SDV 1 mL 2 MG IVP ×2 (13:57→22:06)
[2025-01-31 14:50] LABS: Vitamin B12 507 pg/mL (232-1245)
--- NOTE | 2025-01-31 15:23 | PC.NURSE ---
PO medications delayed as pt refused and is now sleeping. Will reattempt when pt awakens.
[2025-01-31] MEDS: pantoprazole 40 mg SDV IVP (16:31)
--- NOTE | 2025-01-31 16:34 | PC.SLP ---
The pt has recently received morphine. He is not alert at this time, and unable to participate in an assessment.
[2025-02-01] VITALS (7 sets, daily range): BP systolic 89–114; BP diastolic 50–78; PULSE 63–117; RESP 12–17; TEMP 36.3–36.9; O2SAT 90–99
[2025-02-01] MEDS: thiamine 100 mg/mL 2mL SDV 200 MG IVP ×3 (01:12→17:32)
[2025-02-01 05:12] LABS: Hematocrit 28.6 % (37-53); Hemoglobin 9.80 g/dL (11.27-16.99); Mean Corpuscular HGB Conc 34.3 g/dL (30-55); Mean Corpuscular Hemoglobin 32.1 pg (27-33); Mean Corpuscular Volume 93.8 fl (82-101); Nucleated Red Blood Cells % 0 %; Platelet Count 95 10^3/cmm (157-399); Red Blood Count 3.05 10^6/uL (3.85-5.65); White Blood Count 3.25 10^3/uL (3.29-11.43)
[2025-02-01 05:34] LABS: Alanine Aminotransferase 8 U/L (0-41); Albumin Level 2.4 g/dL (3.5-5.2); Alkaline Phosphatase 34 U/L (40-130); Anion Gap 15.5 (5-19); Aspartate Amino Transferase 17 U/L (0-40); Blood Urea Nitrogen 9 mg/dL (6-20); Calcium 7.6 mg/dL (8.5-10.5); Carbon Dioxide 19 mmol/L (22-29); Chloride 110 mmol/L (98-107); Creatinine Clr Calc Pharmacy 77.7671; Globulin 2.0 g/dL (1.3-4.6); Glucose 77 mg/dL (65-115); Osmolality Calculated 289 mOsm/kg (285-295); Potassium 3.5 mmol/L (3.5-5.1); Sodium 141 mmol/L (136-145); Total Protein 4.4 g/dL (6.6-8.7)
[2025-02-01] MEDS: piperacillin-tazobactam 3.375 GM in sodium chloride 0.9% (plus) 50 ML IV (05:50)
[2025-02-01] MEDS: vancomycin 500 MG in sodium chloride 0.9% (plus) 100 ML 200 MG IV ×2 (08:01→18:25)
--- NOTE | 2025-02-01 10:29 | PC.SOCIAL ---
IMM Update pg 2 of IMM Updated and reviewed w/ patients mother. Copy provided and copy dated, initialed and placed in chart.
[2025-02-01] MEDS: LORazepam 2 mg/mL INJ 1 mL 1 MG IVP ×3 (10:52→16:42)
[2025-02-01 12:50] LABS: HIV 1 & 2 Antigen Non-Reactive (Non-Reactiv)
[2025-02-01 13:47] LABS: Hepatitis A Antibody IgM Non-Reactive (Nonreactive); Hepatitis B Surface Antigen Non-Reactive (Nonreactive)
--- NOTE | 2025-02-01 14:30 | FL_ITS ---
WS: [id number] LUMBAR PUNCTURE CLINICAL INFORMATION: ams COMPARISON: None. TECHNIQUE: Informed consent: Verbal and written consent was obtained. Anxiolytics administered on the floor prior to procedure as patient is confused and restless. Timeout: A timeout was performed to confirm correct patient, procedure, and site. Patient was prepped and draped in the usual sterile fashion. Lidocaine 1% was used for local anesthesia. Utilizing fluoroscopic guidance, a 3.5 inch 22-gauge spinal needle was advanced into the subarachnoid space at L3-L4 via left oblique sublaminar approach. Free flow of CSF was obtained. 7 cc of CSF was collected and sent the lab for further analysis. CSF was initially clear but then became blood-tinged and stopped flowing. Procedure was terminated at this point. FLUOROSCOPIC TIME: 2min [id number] # of spot films: 1 FL/FL guided lumbarpunc dx* [id number] IMPRESSION: Fluoroscopically guided lumbar puncture. No immediate complications
--- NOTE | 2025-02-01 15:25 | P.PN_ITS ---
Subjective 2 Subjective: Patient was seen, currently alert to person, to place, not to time, can follow commands, mother at bedside, he is able to answer basic yes or no questions, still encephalopathic at time continues to have generalized weakness, has no pain complaints, Vitals/I&O/Wt Last Vital Signs Temp 97.3 F L 02/01/25 11:40 Pulse 74 02/01/25 11:40 Resp 16 02/01/25 11:40 BP 97/66 02/01/25 11:40 Pulse Ox 92 02/01/25 11:40 O2 Del Method Room Air 02/01/25 11:40 02/01/25 02/01/25 02/01/25 06:59 14:59 22:59 Intake Total 1050 / 3635 1128.75 / 1128.75 Output Total 1100 / 3600 900 / 900 Balance -50 / 35 228.75 / 228.75 Weight last 48 hrs Weight 58.06 kg Weight 59.903 kg Physical Exam 2 Const: COMMON NORMALS: no acute distress Resp: COMMON NORMALS: normal respiratory effort, No retractions, No use of accessory muscles and clear to auscultation bilaterally AUSCULTATION: clear to auscultation bilaterally Cardio: COMMON NORMALS: regular rate, regular rhythm, S1 normal heart sound present and S2 normal heart sound present RATE: regular rate RHYTHM: r egular rhythm HEART SOUNDS: S1 normal heart sound present and S2 normal heart sound present GI: COMMON NORMALS: Normal to inspection, nondistended, normoactive bowel sounds present and non-tender Extremity: COMMON NORMALS: no pedal edema Psych: COMMON NORMALS: mental status grossly normal Urinary Catheter Management: Velasquez: Cath Placed During This Visit: yes Reason for Continuing Indwelling Catheter: Acute Urinary Retention or Obstruction Urinary Catheter Date of Insertion: 01/30/25 Urinary Catheter Time of Insertion: 04:30 Data 02/01/25 04:23 02/01/25 04:23 A&P Assessment and plan 1. Altered mental status: Plan: Altered mental status -Etiology unclear -Perhaps postobstructive uropathy, CT scan showed distended bladder, with bilateral hydronephrosis, Velasquez catheter in place, renal ultrasound shows no hydronephrosis, -Mentation did improve to some degree but remains diffusely encephalopathic -CT head no acute findings -Lactic acid within normal limits -CRP Pro-Dick within normal limits -UA within normal limits -Chest x-ray within normal limits -No leukocytosis - Does have some thrombocytopenia - CT chest abdomen pelvis CT/CT chest abdpel w/*[id number] IMPRESSION: 1. Motion artifact limits assessment. 2. No acute process identified. 3. Recommend correlation with the accompanying CT abdomen pelvis report for further details. IMPRESSION: 1. Motion artifact limits assessment. 2. No acute process identified. 3. Bilateral hydronephrosis versus extrarenal pelvis sees. No significant hydroureter. 4. Recommend correlation with the body the report for further details regarding additional nonemergent findings. 5. The urinary bladder is distended. -CT chest to evaluate for atlantoaxial instability, negative -Cardiac echo as below -carotid artery ultrasound, normal MR/MR head wo con* [id number] IMPRESSION: 1. No evidence of acute intracranial pathology. 2. Mild microangiopathic white matter changes. No acute or subacute ischemic changes are seen and there are no visible mass lesions. - Blood cultures so far no growth -Known history of seizures, no clinical history related to seizures -urine toxicology screen within normal limits, TSH within normal limits -IV fluids -IV vancomycin -IV Zosyn de-escalated to Rocephin - Full code - Lovenox for DVT prophylaxis Congenital heart defect CONCLUSIONS Normal left ventricular size. Hyperdynamic left ventricular systolic function. EF 77%. Mild concentric left ventricular hypertrophy Normal right ventricular size and systolic function. Aortic valve not well-visualized. Velocities consistent with moderate aortic valve stenosis Basal septal ventricular septal defect with small [id number] shunt Severe mitral valve regurgitation Mild pulmonic valve stenosis Mild pulmonary hypertension, PASP 41 mmHg Recommend transesophageal echocardiogram for better visualization if clinically appropriate. Pancytopenia? Potentially side effect from Zosyn de-escalated to Rocephin plan for today coutinue IV thiamine, will order LP PDMP PDMP Reviewed: Not Reviewed Attestations 2 Medical Necessity Statement*: Patient requires hospitalization for mental status Diagnoses Altered mental status R41.82
[2025-02-01 16:30] LABS: Cyto Order Verification No Order
[2025-02-01] MEDS: pantoprazole 40 mg SDV IVP (17:32)
[2025-02-02 00:45] VITALS: BP 101/68; PULSE 84; RESP 16; TEMP 36.7; O2SAT 97
[2025-02-02] MEDS: thiamine 100 mg/mL 2mL SDV 200 MG IVP ×3 (01:55→17:16)
[2025-02-02 04:00] VITALS: BP 97/70; PULSE 72; RESP 17; TEMP 36.4; O2SAT 100
[2025-02-02] MEDS: cefTRIAXone 1,000 mg SDV 1000 MG IVP (07:19)
[2025-02-02] MEDS: vancomycin 500 MG in sodium chloride 0.9% (plus) 100 ML 100 MG IV ×2 (07:19→18:48)
[2025-02-02 07:33] VITALS: BP 94/60; PULSE 82; RESP 18; TEMP 36.4; O2SAT 99
[2025-02-02 08:49] LABS: Hematocrit 32.7 % (37-53); Hemoglobin 11.60 g/dL (11.27-16.99); Mean Corpuscular HGB Conc 35.5 g/dL (30-55); Mean Corpuscular Hemoglobin 32.0 pg (27-33); Mean Corpuscular Volume 90.1 fl (82-101); Nucleated Red Blood Cells % 0 %; Platelet Count 109 10^3/cmm (157-399); Red Blood Count 3.63 10^6/uL (3.85-5.65); White Blood Count 4.56 10^3/uL (3.29-11.43)
--- NOTE | 2025-02-02 08:55 | PC.OT ---
OT TX attempted this AM. Patient was very difficult to understand and noted to be confused. He acknowledged therapist and initially agreed to attempt grooming in bed though was noted to have increased lethargy and closed his eyes. When asked if he would like to go back to bed he stated, Yes please . Will attempted tx at a later time if able. Justin Beckham, OTR/L
[2025-02-02 09:10] LABS: Alanine Aminotransferase 8 U/L (0-41); Albumin Level 2.7 g/dL (3.5-5.2); Alkaline Phosphatase 40 U/L (40-130); Anion Gap 12.4 (5-19); Aspartate Amino Transferase 17 U/L (0-40); Blood Urea Nitrogen 7 mg/dL (6-20); Calcium 7.8 mg/dL (8.5-10.5); Carbon Dioxide 20 mmol/L (22-29); Chloride 109 mmol/L (98-107); Creatinine Clr Calc Pharmacy 83.2231; Globulin 2.4 g/dL (1.3-4.6); Glucose 71 mg/dL (65-115); Osmolality Calculated 282 mOsm/kg (285-295); Potassium 3.4 mmol/L (3.5-5.1); Sodium 138 mmol/L (136-145); Total Protein 5.1 g/dL (6.6-8.7)
[2025-02-02 11:20] VITALS: BP 96/62; PULSE 87; RESP 16; TEMP 36.6; O2SAT 99
--- NOTE | 2025-02-02 12:50 | P.PN_ITS ---
Subjective 2 Subjective: - Patient was seen this morning - Alert to person, not to place, to time he is encephalopathic this morning - Mother is at bedside - He does follow some commands he is abl e to smile for me, moves bilateral upper and lower extremities, but continues to try to take his sheets off his bed, tries to take his clothes off, requires frequent redirection he Vitals/I&O/Wt Last Vital Signs Temp 97.8 F 02/02/25 11:20 Pulse 87 02/02/25 11:20 Resp 16 02/02/25 11:20 BP 96/62 02/02/25 11:20 Pulse Ox 99 02/02/25 11:20 O2 Del Method Room Air 02/02/25 11:20 02/01/25 02/02/25 02/02/25 22:59 06:59 14:59 Intake Total 100 / 1228.75 220 / 220 Output Total 900 / 1800 50 / 1850 Balance -800 / -571.25 -50 / -621.25 220 / 220 Weight last 48 hrs Weight 54.295 kg Weight 58.06 kg Physical Exam 2 Const: COMMON NORMALS: no acute distress ORIENTATION/CONSCIOUSNESS: Yes awake, Yes oriented to person and Yes confused; not oriented to place and not oriented to time Eye: COMMON NORMALS: Equal, round and reactive pupils present PUPIL: Yes Equal, round and reactive pupils present Resp: COMMON NORMALS: normal respiratory effort, No retractions, No use of accessory muscles and clear to auscultation bilaterally AUSCULTATION: clear to auscultation bilaterally Cardio: COMMON NORMALS: regular rate, regular rhythm, S1 normal heart sound present and S2 normal heart sound present RATE: regular rate RHYTHM: r egular rhythm HEART SOUNDS: S1 normal heart sound present and S2 normal heart sound present GI: COMMON NORMALS: Normal to inspection, nondistended, normoactive bowel sounds present and non-tender Extremity: COMMON NORMALS: no pedal edema Neuro: SENSORIUM/ORIENTATION: Yes oriented to person, No oriented to place and No oriented to time Urinary Catheter Management: Velasquez: Cath Placed During This Visit: yes Reason for Continuing Indwelling Catheter: Acute Urinary Retention or Obstruction Urinary Catheter Date of Insertion: 01/30/25 Urinary Catheter Time of Insertion: 04:30 Data 02/02/25 08:26 02/02/25 08:26 Micro: Microbiology 02/01/25 16:10 Gram Stain - Final Cerebrospinal Fluid Cryptococcal Antigen (CSF) - Final A&P Assessment and plan 1. Altered mental status: Plan: Altered mental status -Yesterday he was alert to person, to place, not to time he would follow commands this morning he is more encephalopathic -Etiology - likely due to underlying dementia, recent UTI, recent anesthetic use -Possible Warnicke's encephalopathy?, Did respond well to thiamine continue IV thiamine -Perhaps postobstructive uropathy, CT scan showed distended bladder, with bilateral hydronephrosis, Velasquez catheter in place, renal ultrasound shows no hydronephrosis, -Mentation did improve to some degree but remains diffusely encephalopathic -CT head no acute findings -Lactic acid within normal limits -CRP Pro-Dick within normal limits -UA within normal limits -Chest x-ray within normal limits -No leukocytosis - Does have some thrombocytopenia - CT chest abdomen pelvis CT/CT chest abdpel w/*[id number] IMPRESSION: 1. Motion artifact limits assessment. 2. No acute process identified. 3. Recommend correlation with the accompanying CT abdomen pelvis report for further details. IMPRESSION: 1. Motion artifact limits assessment. 2. No acute process identified. 3. Bilateral hydronephrosis versus extrarenal pelvis sees. No significant hydroureter. 4. Recommend correlation with the body the report for further details regarding additional nonemergent findings. 5. The urinary bladder is distended. -CT chest to evaluate for atlantoaxial instability, negative -Cardiac echo as below -carotid artery ultrasound, normal MR/MR head wo con* [id number] IMPRESSION: 1. No evidence of acute intracranial pathology. 2. Mild microangiopathic white matter changes. No acute or subacute ischemic changes are seen and there are no visible mass lesions. - Blood cultures so far no growth -Known history of seizures, no clinical history related to seizures -urine toxicology screen within normal limits, TSH within normal limits - Status post lumbar puncture, test results have been sent out to tertiary facility given the possibility of prion disease, but prion disease fairly unlikely, but precautions taken Plan -IV vancomycin -escalated to Rocephin -Currently on Reglan potentially causing agitation reduce dose - Full code - Lovenox for DVT prophylaxis Congenital heart defect CONCLUSIONS Normal left ventricular size. Hyperdynamic left ventricular systolic function. EF 77%. Mild concentric left ventricular hypertrophy Normal right ventricular size and systolic function. Aortic valve not well-visualized. Velocities consistent with moderate aortic valve stenosis Basal septal ventricular septal defect with small [id number] shunt Severe mitral valve regurgitation Mild pulmonic valve stenosis Mild pulmonary hypertension, PASP 41 mmHg Recommend transesophageal echocardiogram for better visualization if clinically appropriate. Pancytopenia? Potentially side effect from Zosyn de-escalated to Rocephin Concern for dementia - Discussed with patient's mom that I am worried that his decline is associated with underlying dementia given his Down syndrome and his age - Discussed with his Down syndrome, congenital heart defect - Discussed morbidity and mortality associate with underlying condition, - Discussed the possibility that Asa is near the end of his life given his age with his Down syndrome, his congenital heart defect, my concern for dementia - Discussed goals of care - Mom wants everything to be done, remains a full code plan for today coutinue IV thiamine, PT OT, PDMP PDMP Reviewed: Not Reviewed Attestations 2 Medical Necessity Statement*: Patient requires hospitalization for encephalopathy Diagnoses Altered mental status R41.82
[2025-02-02] MEDS: morphine 4 mg/mL SDV 1 mL 2 MG IVP (12:58)
[2025-02-02 15:24] VITALS: BP 107/60; PULSE 99; RESP 18; TEMP 36.6; O2SAT 96
[2025-02-02] MEDS: pantoprazole 40 mg SDV IVP (17:16)
[2025-02-02 20:00] VITALS: BP 97/57; PULSE 85; RESP 18; TEMP 36.7; O2SAT 98
[2025-02-03] VITALS (8 sets, daily range): BP systolic 95–116; BP diastolic 59–73; PULSE 57–77; RESP 16–17; TEMP 36.4–36.9; O2SAT 94–100
[2025-02-03] MEDS: thiamine 100 mg/mL 2mL SDV 200 MG IVP ×3 (00:49→16:19)
[2025-02-03] MEDS: LORazepam 2 mg/mL INJ 1 mL 1 MG IVP (01:44)
[2025-02-03] MEDS: morphine 4 mg/mL SDV 1 mL 2 MG IVP (01:44)
--- NOTE | 2025-02-03 04:35 | PC.NURSE ---
Patient refused 0500 po medications. This nurse explained the importance of the medications and asked if the patient would like them in apple sauce. Patient still refused.
[2025-02-03 05:12] LABS: Hematocrit 30.1 % (37-53); Hemoglobin 10.90 g/dL (11.27-16.99); Mean Corpuscular HGB Conc 36.2 g/dL (30-55); Mean Corpuscular Hemoglobin 32.8 pg (27-33); Mean Corpuscular Volume 90.7 fl (82-101); Nucleated Red Blood Cells % 0 %; Platelet Count 130 10^3/cmm (157-399); Red Blood Count 3.32 10^6/uL (3.85-5.65); White Blood Count 4.02 10^3/uL (3.29-11.43)
[2025-02-03 05:38] LABS: Alanine Aminotransferase 8 U/L (0-41); Albumin Level 2.7 g/dL (3.5-5.2); Alkaline Phosphatase 38 U/L (40-130); Anion Gap 10.2 (5-19); Aspartate Amino Transferase 14 U/L (0-40); Blood Urea Nitrogen 7 mg/dL (6-20); Calcium 7.8 mg/dL (8.5-10.5); Carbon Dioxide 24 mmol/L (22-29); Chloride 107 mmol/L (98-107); Creatinine Clr Calc Pharmacy 68.0916; Globulin 2.3 g/dL (1.3-4.6); Glucose 76 mg/dL (65-115); Osmolality Calculated 283 mOsm/kg (285-295); Potassium 3.2 mmol/L (3.5-5.1); Sodium 138 mmol/L (136-145); Total Protein 5.0 g/dL (6.6-8.7)
[2025-02-03] MEDS: vancomycin 500 MG in sodium chloride 0.9% (plus) 100 ML 100 MG IV (06:27)
[2025-02-03] MEDS: cefTRIAXone 1,000 mg SDV 1000 MG IVP (09:46)
--- NOTE | 2025-02-03 12:52 | P.PN_ITS ---
Subjective 2 Subjective: Patient was seen this day, mom is at bedside, he is alert to person, he wants to go back to bed, mom tells me that he typically sleeps until noon, and he is up till late at night, Vitals/I&O/Wt Last Vital Signs Temp 97.6 F 02/03/25 12:04 Pulse 74 02/03/25 12:04 Resp 17 02/03/25 12:04 BP 98/70 02/03/25 12:04 Pulse Ox 98 02/03/25 12:04 O2 Del Method Room Air 02/03/25 04:00 02/02/25 02/03/25 02/03/25 22:59 05:59 14:59 Intake Total 460 / 680 8.333 / 680 91.667 / 91.667 Output Total 1000 / 1000 250 / 1250 Balance -540 / -320 -241.667 / -570 91.667 / 91.667 Weight last 48 hrs Weight 56.109 kg Weight 54.295 kg Physical Exam 2 Const: COMMON NORMALS: no acute distress ORIENTATION/CONSCIOUSNESS: Yes awake and Yes oriented to person Resp: COMMON NORMALS: normal respiratory effort, No retractions, No use of accessory muscles and clear to auscultation bilaterally AUSCULTATION: clear to auscultation bilaterally Cardio: COMMON NORMALS: regular rate, regular rhythm, S1 normal heart sound present and S2 normal heart sound present RATE: regular rate RHYTHM: r egular rhythm HEART SOUNDS: S1 normal heart sound present and S2 normal heart sound present GI: COMMON NORMALS: Normal to inspection, nondistended, normoactive bowel sounds present and non-tender Extremity: COMMON NORMALS: no pedal edema Neuro: SENSORIUM/ORIENTATION: Yes oriented to person Psych: COMMON NORMALS: mental status grossly normal Urinary Catheter Management: Velasquez: Cath Placed During This Visit: yes Reason for Continuing Indwelling Catheter: Acute Urinary Retention or Obstruction Urinary Catheter Date of Insertion: 01/30/25 Urinary Catheter Time of Insertion: 04:30 Data 02/03/25 04:56 02/03/25 04:56 Micro: Microbiology 02/01/25 16:10 Gram Stain - Final Cerebrospinal Fluid CSF Culture - Preliminary Cryptococcal Antigen (CSF) - Final A&P Assessment and plan 1. Altered mental status: Plan: Altered mental status -Yesterday he was alert to person, to place, not to time he would follow commands this morning he is more encephalopathic -Etiology - likely due to underlying dementia, recent UTI, recent anesthetic use -Possible Warnicke's encephalopathy?, Did respond well to thiamine continue IV thiamine -Perhaps postobstructive uropathy, CT scan showed distended bladder, with bilateral hydronephrosis, Velasquez catheter in place, renal ultrasound shows no hydronephrosis, -Mentation did improve to some degree but remains diffusely encephalopathic -CT head no acute findings -Lactic acid within normal limits -CRP Pro-Dick within normal limits -UA within normal limits -Chest x-ray within normal limits -No leukocytosis - Does have some thrombocytopenia - CT chest abdomen pelvis CT/CT chest abdpel w/*[id number] IMPRESSION: 1. Motion artifact limits assessment. 2. No acute process identified. 3. Recommend correlation with the accompanying CT abdomen pelvis report for further details. IMPRESSION: 1. Motion artifact limits assessment. 2. No acute process identified. 3. Bilateral hydronephrosis versus extrarenal pelvis sees. No significant hydroureter. 4. Recommend correlation with the body the report for further details regarding additional nonemergent findings. 5. The urinary bladder is distended. -CT chest to evaluate for atlantoaxial instability, negative -Cardiac echo as below -carotid artery ultrasound, normal MR/MR head wo con* [id number] IMPRESSION: 1. No evidence of acute intracranial pathology. 2. Mild microangiopathic white matter changes. No acute or subacute ischemic changes are seen and there are no visible mass lesions. - Blood cultures so far no growth -Known history of seizures, no clinical history related to seizures -urine toxicology screen within normal limits, TSH within normal limits - Status post lumbar puncture, test results have been sent out to tertiary facility given the possibility of prion disease, but prion disease fairly unlikely, but precautions taken Plan -IV vancomycin -escalated to Rocephin -Currently on Reglan potentially causing agitation reduce dose - Full code - Lovenox for DVT prophylaxis Congenital heart defect CONCLUSIONS Normal left ventricular size. Hyperdynamic left ventricular systolic function. EF 77%. Mild concentric left ventricular hypertrophy Normal right ventricular size and systolic function. Aortic valve not well-visualized. Velocities consistent with moderate aortic valve stenosis Basal septal ventricular septal defect with small [id number] shunt Severe mitral valve regurgitation Mild pulmonic valve stenosis Mild pulmonary hypertension, PASP 41 mmHg Recommend transesophageal echocardiogram for better visualization if clinically appropriate. Pancytopenia? Potentially side effect from Zosyn de-escalated to Rocephin Concern for dementia - Discussed with patient's mom that I am worried that his decline is associated with underlying dementia given his Down syndrome and his age - Discussed with his Down syndrome, congenital heart defect - Discussed morbidity and mortality associate with underlying condition, - Discussed the possibility that Asa is near the end of his life given his age with his Down syndrome, his congenital heart defect, my concern for dementia - Discussed goals of care - Mom wants everything to be done, remains a full code plan for today coutinue IV thiamine, PT OT, PDMP PDMP Reviewed: Not Reviewed Attestations 2 Medical Necessity Statement*: Patient requires presentation for altered mental status Diagnoses Altered mental status R41.82
[2025-02-03] MEDS: pantoprazole 40 mg SDV IVP (16:19)
[2025-02-04] VITALS (11 sets, daily range): BP systolic 92–119; BP diastolic 55–79; PULSE 73–85; RESP 16–17; TEMP 36.8–37; O2SAT 93–99; BMI 20.5
[2025-02-04] MEDS: thiamine 100 mg/mL 2mL SDV 200 MG IVP ×2 (03:05→08:24)
[2025-02-04] MEDS: LORazepam 2 mg/mL INJ 1 mL 1 MG IVP (03:25)
[2025-02-04 05:19] LABS: Hematocrit 32.7 % (37-53); Hemoglobin 12.00 g/dL (11.27-16.99); Mean Corpuscular HGB Conc 36.7 g/dL (30-55); Mean Corpuscular Hemoglobin 32.5 pg (27-33); Mean Corpuscular Volume 88.6 fl (82-101); Nucleated Red Blood Cells % 0 %; Platelet Count 154 10^3/cmm (157-399); Red Blood Count 3.69 10^6/uL (3.85-5.65); White Blood Count 4.30 10^3/uL (3.29-11.43)
[2025-02-04 05:40] LABS: Alanine Aminotransferase 13 U/L (0-41); Albumin Level 3.0 g/dL (3.5-5.2); Alkaline Phosphatase 49 U/L (40-130); Anion Gap 12.2 (5-19); Aspartate Amino Transferase 23 U/L (0-40); Blood Urea Nitrogen 6 mg/dL (6-20); Calcium 8.4 mg/dL (8.5-10.5); Carbon Dioxide 24 mmol/L (22-29); Chloride 108 mmol/L (98-107); Creatinine Clr Calc Pharmacy 68.8104; Globulin 2.6 g/dL (1.3-4.6); Glucose 112 mg/dL (65-115); Osmolality Calculated 290 mOsm/kg (285-295); Potassium 3.2 mmol/L (3.5-5.1); Sodium 141 mmol/L (136-145); Total Protein 5.6 g/dL (6.6-8.7)
[2025-02-04 11:30] LABS: Vitamin B1(Thiamin) Plas/Ser >1200 nmol/L (8-30)
--- NOTE | 2025-02-04 13:06 | PM.DCS ---
Discharge Providers Date of Admission: 01/29/25 17:31 Date of Discharge: February 04, 2025 Attending Provider at Admission: Paresh Zabala MD Attending Provider at Discharge: Paresh Zaabla MD Diagnoses at Discharge Discharge Diagnosis 1. Altered mental status: Reason for Visit Reason for Visit: Lethargic Hospital Course Hospital Course Asa Smith is a 49 year old male past medical history of Down syndrome, history of esophageal stricture with recent history of esophageal dilatation, hypothyroidism, who presents to [facility] for altered mental status, generalized weakness, somnolence, not been walking for the last few days. Currently patient alert and oriented x 0, he does not follow commands, does awaken but falls back asleep blood pressure 91/55, pulse of 61, respiratory 16, temperature 97.7 100% on room air, GCS score is 10, he withdraws from pain, opens eyes spontaneously, incomprehensible sounds, pupils equal round reactive to light, according to mother he had his esophagus stretched back in January 04 since then he has not been his normal self, decreased oral appetite he has had generalized weakness, decreased ability to walk, he was here in the emergency room on January 26, he had a fall at that time, according to mom, he has not had any pain complaints, head CT within normal limits, is diagnosed with a UTI, and sent home, since then he continues to have generalized confusion, inability to walk, decreased oral appetite, no fevers, no cough, no new rashes, he had diarrhea a few days ago, none since then Patient was admitted to [facility] for altered mental status Altered mental status - likely due to underlying dementia, recent UTI, recent anesthetic use -Possible Warnicke's encephalopathy?, Did respond well to thiamine -Perhaps postobstructive uropathy, CT scan showed distended bladder, with bilateral hydronephrosis, Lindsay catheter in place, renal ultrasound shows no hydronephrosis, -CT head no acute findings -Lactic acid within normal limits -CRP Pro-Dick within normal limits -UA within normal limits -Chest x-ray within normal limits -No leukocytosis - Does have some thrombocytopenia - CT chest abdomen pelvis CT/CT chest abdpel w/*[id number] IMPRESSION: 1. Motion artifact limits assessment. 2. No acute process identified. 3. Recommend correlation with the accompanying CT abdomen pelvis report for further details. IMPRESSION: 1. Motion artifact limits assessment. 2. No acute process identified. 3. Bilateral hydronephrosis versus extrarenal pelvis sees. No significant hydroureter. 4. Recommend correlation with the body the report for further details regarding additional nonemergent findings. 5. The urinary bladder is distended. -CT chest to evaluate for atlantoaxial instability, negative -Cardiac echo as below -carotid artery ultrasound, normal MR/MR head wo con* [id number] IMPRESSION: 1. No evidence of acute intracranial pathology. 2. Mild microangiopathic white matter changes. No acute or subacute ischemic changes are seen and there are no visible mass lesions. - Blood cultures so far no growth -Known history of seizures, no clinical history related to seizures -urine toxicology screen within normal limits, TSH within normal limits MRI brain IMPRESSION: Images limited due to motion artifact. Fast imaging performed 1. No evidence of restricted diffusion to suggest manage flecking bulge acute ischemia. 2. Signal abnormality in the mamillary bodies and periaqueductal pelayo can be seen with Wernicke's encephalopathy. Recommend clinical correlation for thiamine deficiency 3. Mild small vessel changes with mild parenchymal volume loss. 4. No hemosiderin on the susceptibly weighted images. 5. No other acute findings - Status post lumbar puncture so far preliminary test, no acute findings - Initially managed with IV antibiotics, IV antibiotics discontinued remained afebrile mentation has not changed - Managed on IV thiamine for possible Warnicke's encephalopathy - Overall mentation improved he is alert to person, to place, not to time he can follow commands but at times is confused, continues to have significant deconditioning, generalized weakness - Discussed with patient's mom in detail, goals of care - My worry is is that the cause of his underlying decline could be a component related to undiagnosed and underlying dementia given his underlying Down syndrome, his age of 49 - Discussed with mom in detail the lifespan palpitations of patients with Down syndrome, the natural history of the disease processes associated Down syndrome such as dementia, congenital heart defects, complications, she voiced understanding, all questions answered -Discussed that it potentially could be that Asa is near the end of his life span with his underlying Down syndrome, dementia, and congenital heart defects -Discussed morbidity and mortality, she voiced understanding, all questions answered -For now in terms of goals of care, she wants him to be a full code, wants everything to be done -Blood cultures so far no growth, remains afebrile -In terms of CSF workup, -I have ordered further CSF studies that have been sent out via [employer] -I have a low suspicion for prion diseases, as he has had no exposure, no history of eating contaminated meat/products, and given his improvement during his hospitalization I think it is fairly unlikely, nonetheless testing has been ordered -Test has been sent out via [employer] and will take 7 to 10 days - Discussed potentially his UTI, and recent anesthetic use was a recent for his generalized decline - Nonetheless he will follow-up with neurology - I have ordered an outpatient EEG - Discharged on thiamine - I have discharged him on methylphenidate as a stimulant to be used early in the morning - Discharge of dysphagia diet, aspiration precautions -[facility] Concern for dementia - Discussed with patient's mom that I am worried that his decline is associated with underlying dementia given his Down syndrome and his age - Discussed with his Down syndrome, congenital heart defect - Discussed morbidity and mortality associated with underlying condition, - Discussed the possibility that Asa is near the end of his life given his age with his Down syndrome, his congenital heart defect, my concern for dementia - Discussed goals of care - Mom wants everything to be done, remains a full code Congenital heart defect CONCLUSIONS Normal left ventricular size. Hyperdynamic left ventricular systolic function. EF 77%. Mild concentric left ventricular hypertrophy Normal right ventricular size and systolic function. Aortic valve not well-visualized. Velocities consistent with moderate aortic valve stenosis Basal septal ventricular septal defect with small [id number] shunt Severe mitral valve regurgitation Mild pulmonic valve stenosis Mild pulmonary hypertension, PASP 41 mmHg Recommend transesophageal echocardiogram for better visualization if clinically appropriate. - Discussed possibility that some of his weakness, is associate with a congenital heart defect - Currently, with his deconditioning, and his mentation, he is not an ideal candidate for surgical intervention - Nonetheless discussed with mom will have a follow-up with cardiology There was concerns for urinary retention during hospitalization - CT showed bilateral hydronephrosis - Will discharge with Lindsay catheter placed, Flomax - Will discharge with close follow-up with urology for urodynamic testing and removing a Lindsay catheter Physical Exam Const: COMMON NORMALS: no acute distress ORIENTATION/CONSCIOUSNESS: Yes awake, Yes oriented to person and Yes oriented to place; not oriented to time Eye: COMMON NORMALS: Equal, round and reactive pupils present and EOMs intact bilaterally GENERAL EYE: appearance normal, both eyes and all related structures PUPIL: Yes Equal, round and reactive pupils present Resp: COMMON NORMALS: normal respiratory effort, No retractions, No use of accessory muscles and clear to auscultation bilaterally AUSCULTATION: clear to auscultation bilaterally Cardio: COMMON NORMALS: regular rate, regular rhythm, S1 normal heart sound present and S2 normal heart sound present RATE: regular rate RHYTHM: regular rhythm HEART SOUNDS: S1 normal heart sound present and S2 normal heart sound present GI: COMMON NORMALS: Normal to inspection, nondistended, normoactive bowel sounds present and non-tender Extremity: COMMON NORMALS: no pedal edema Neuro: COMMON NORMALS: CN's II-XII intact bilaterally, moves all extremities and no focal motor deficits SENSORIUM/ORIENTATION: Yes oriented to person, Yes oriented to place and No oriented to time Urinary Catheter Management: Lindsay: Cath Placed During This Visit: yes Reason for Continuing Indwelling Catheter: Acute Urinary Retention or Obstruction Urinary Catheter Date of Insertion: 01/30/25 Urinary Catheter Time of Insertion: 04:30 Discharge Data Studies Completed and Pending Completed Studies During Hospitalization Category Date Time Status CT cervical spin wo con* [id number] Routine Cat Scan 01/29/25 17:[address] chest abdomen pelvis [CT chest abdpel w/*[id number] Cat Scan 01/29/25 17:30 Completed ] Stat CT head wo con* [id number] Stat Cat Scan 01/29/25 12:10 Completed FL guided lumbarpunc dx* [id number] Routine Exams 02/01/25 14:30 Completed XR chest 1V portable [id number] Stat Exams 01/29/25 13:32 Completed MR head wo con* [id number] Routine MRI 01/30/25 13:36 Completed CV carotid duplex BI* [id number] Stat Ultrasound 01/29/25 17:37 Completed CV. echo complete* [id number] Stat Ultrasound 01/29/25 17:37 Completed US renal BI* [id number] Routine Ultrasound 01/30/25 08:01 Completed Pending at discharge Category Date Time Status C.Diff PCR (Lab) Routine Lab 01/29/25 18:00 Ordered Complete Blood Count w/Auto AM LABS Lab 02/05/25 04:00 Ordered Comprehensive Metabolic Panel AM LABS Lab 02/05/25 04:00 Ordered Miscellaneous Test Routine Lab 02/01/25 16:10 Received Miscellaneous Test Routine Lab 02/01/25 16:10 Received Miscellaneous Test Routine Lab 02/01/25 16:10 Received Miscellaneous Test Routine Lab 02/01/25 16:10 Received Miscellaneous Test Routine Lab 02/01/25 16:10 Received Miscellaneous Test Routine Lab 02/01/25 16:10 Received Miscellaneous Test Routine Lab 02/01/25 16:10 Received Radiology Impressions Head CT 01/29/25 12:10 IMPRESSION: 1. No acute intracranial hemorrhage or edema. 2. Minimal cerebral atrophy and small vessel disease. Chest X-Ray 01/29/25 13:32 IMPRESSION: 1. No acute cardiopulmonary finding. Chest/Abdomen/Pelvis CT 01/29/25 17:30 IMPRESSION: 1. Motion artifact limits assessment. 2. No acute process identified. 3. Recommend correlation with the accompanying CT abdomen pelvis report for further details. IMPRESSION: 1. Motion artifact limits assessment. 2. No acute process identified. 3. Bilateral hydronephrosis versus extrarenal pelvis sees. No significant hydroureter. 4. Recommend correlation with the body the report for further details regarding additional nonemergent findings. 5. The urinary bladder is distended. Cervical Spine CT 01/29/25 17:49 IMPRESSION: 1. No acute process or radiographic evidence of atlanto-axial instability. 2. C7-T1 grade 1 anterolisthesis without spondylolysis. 3. Diffuse spondylosis as described. Renal Ultrasound 01/30/25 08:01 IMPRESSION: 1. RIGHT renal atrophy and low normal size LEFT kidney. 2. No hydronephrosis. 3. Lindsay catheter present in a mildly distended bladder. Bladder has significantly decreased in size since the CT of 01/29/2025. Head MRI 01/30/25 13:36 IMPRESSION: 1. No evidence of acute intracranial pathology. 2. Mild microangiopathic white matter changes. No acute or subacute ischemic changes are seen and there are no visible mass lesions. Lumbar Puncture Fluoroscopy 02/01/25 14:30 IMPRESSION: Fluoroscopically guided lumbar puncture. No immediate complications Laboratory Results WBC 4.30 10^3/uL (3.29-11.43) 02/04/25 05:11 RBC 3.69 10^6/uL (3.85-5.65) L 02/04/25 05:11 Hgb 12.00 g/dL (11.27-16.99) 02/04/25 05:11 Hct 32.7 % (37-53) L 02/04/25 05:11 MCV 88.6 fl (82-101) 02/04/25 05:11 MCH 32.5 pg (27-33) 02/04/25 05:11 MCHC 36.7 g/dL (30-55) 02/04/25 05:11 RDW 13.8 % (12.1-15.1) 02/04/25 05:11 Plt Count 154 10^3/cmm (157-399) L 02/04/25 05:11 MPV 9.7 fL (7.4-10.4) 02/04/25 05:11 Neut % (Auto) 65.8 % 02/04/25 05:11 Lymph % (Auto) 23.7 % 02/04/25 05:11 [place] % (Auto) 6.3 % 02/04/25 05:11 Eos % (Auto) 1.2 % 02/04/25 05:11 Baso % (Auto) 2.8 % 02/04/25 05:11 Neut # (Auto) 2.83 10^3/uL (1.8-7.7) 02/04/25 05:11 Lymph # (Auto) 1.0 10^3/uL (0.8-4.8) 02/04/25 05:11 [place] # (Auto) 0.3 10^3/uL (0.2-0.9) 02/04/25 05:11 Eos # (Auto) 0.1 10^3/uL (0.0-0.8) 02/04/25 05:11 Baso # (Auto) 0.1 10^3/uL (0.0-0.1) 02/04/25 05:11 Nucleated RBC % (auto) 0 % 02/04/25 05:11 Nucleated RBCs # 0.0 /100WBC 02/04/25 05:11 Haptoglobin 98.0 mg/L (30-200) 02/01/25 04:23 Specimen Type Arterial 01/29/25 13:04 Sample Site Brachial, right 01/29/25 13:04 ABG pH 7.38 (7.35-7.45) 01/29/25 13:04 ABG pCO2 38.6 mmHg (35-45) 01/29/25 13:04 ABG pO2 90.9 mmHg (80.0-100.0) 01/29/25 13:04 ABG PO2/FiO2 Ratio 432 01/29/25 13:04 ABG HCO3 22.9 mmol/L (22-26) 01/29/25 13:04 ABG O2 Saturation 97.7 01/29/25 13:04 ABG Base Excess -2.0 mmol/L (-2.0-2.0) 01/29/25 13:04 Lucio Test Pos 01/29/25 13:04 A-a O2 Gradient 1.3 mmHg (5-10) L 01/29/25 13:04 Hematocrit 39.2 % (42-52) L 01/29/25 13:04 Hgb O2 Saturation 95.7 % (95-100) 01/29/25 13:04 Carboxyhemoglobin 0.9 %THgb (0.4-20.1) 01/29/25 13:04 Methemoglobin 1.2 % (0.4-1.5) 01/29/25 13:04 Total Hemoglobin 12.8 g/dL (14-18) L 01/29/25 13:04 Sodium 137.0 mmol/L (131-143) 01/29/25 13:04 Potassium 3.9 mmol/L (3.5-5.0) 01/29/25 13:04 Glucose 125.0 mg/dL (70-115) H 01/29/25 13:04 Ionized Calcium 1.2 mmol/L (1.1-1.4) 01/29/25 13:04 O2 Delivery Device Room air 01/29/25 13:04 FiO2 21.0 % 01/29/25 13:04 [employer] 01/29/25 13:04 Sodium 141 mmol/L (136-145) 02/04/25 05:11 Potassium 3.2 mmol/L (3.5-5.1) L 02/04/25 05:11 Chloride 108 mmol/L (98-107) H 02/04/25 05:11 Carbon Dioxide 24 mmol/L (22-29) 02/04/25 05:11 Anion Gap 12.2 (5-19) 02/04/25 05:11 BUN 6 mg/dL (6-20) 02/04/25 05:11 Creatinine 1.1 mg/dL (0.7-1.2) 02/04/25 05:11 GFR Calculation 71.4 mL/min (90-130) L 02/04/25 05:11 Glucose 112 mg/dL (65-115) 02/04/25 05:11 Estimat Average Glucose 97 01/29/25 13:20 Hemoglobin A1c 5.0 % (4.0-6.0) 01/29/25 13:20 Calculated Osmolality 290 mOsm/kg (285-295) 02/04/25 05:11 Lactic Acid 1.7 mmol/L (0.5-2.2) 01/29/25 13:20 Calcium 8.4 mg/dL (8.5-10.5) L 02/04/25 05:11 Total Bilirubin 0.5 mg/dL (0.15-1.2) 02/04/25 05:11 AST 23 U/L (0-40) 02/04/25 05:11 ALT 13 U/L (0-41) 02/04/25 05:11 Alkaline Phosphatase 49 U/L (40-130) 02/04/25 05:11 Ammonia 14 umol/L (16-60) L 01/29/25 19:45 Lactate Dehydrogenase 153 U/L (135-225) 02/01/25 04:23 Creatine Kinase 142 U/L (39-308) 01/29/25 13:20 Troponin T Baseline 17 ng/L (0-15) H 01/29/25 13:20 Troponin T 120 Minute 14.35 ng/L (0-15) 01/29/25 15:17 Delta Troponin T -2.65 ABS# (0-10) L 01/29/25 15:17 Troponin T Hi Sens 6Hr 15.45 ng/L (0-15) H 01/29/25 19:45 Troponin T Hi Sens 6Hr Delta -1.55 ng/L (0-12) L 01/29/25 19:45 C-Reactive Protein 4.4 mg/L (0.0-4.9) 01/29/25 13:20 NT-Pro-B Natriuret Pep 599 pg/mL (0-125) H 01/29/25 13:20 NT-Pro-B Natriuret Pep Cancelled 01/29/25 13:20 Total Protein 5.6 g/dL (6.6-8.7) L 02/04/25 05:11 Albumin 3.0 g/dL (3.5-5.2) L 02/04/25 05:11 Globulin 2.6 g/dL (1.3-4.6) 02/04/25 05:11 Triglycerides 93 mg/dL (0-150) 01/29/25 13:20 Cholesterol 133 mg/dL (0-200) 01/29/25 13:20 LDL Cholesterol, Calc 78 mg/dL (50-129) 01/29/25 13:20 HDL Cholesterol 36 mg/dL (60-100) L 01/29/25 13:20 LDL/HDL Ratio 2.17 RATIO (0.00-3.22) 01/29/25 13:20 Cholesterol/HDL Ratio 3.69 mg/dL (1.0-5.00) 01/29/25 13:20 Vitamin B1 >1200 nmol/L (8-30) H 01/30/25 18:58 Vitamin B12 507 pg/mL (232-1245) 01/31/25 09:33 Procalcitonin 0.11 ng/mL (0-0.5) 01/29/25 13:20 Procalcitonin Cancelled 01/29/25 13:20 TSH 2.46 uIU/mL (0.27-4.20) 01/29/25 13:20 Urine Color Yellow (Yellow) 01/29/25 16:16 Urine Appearance Clear (CLEAR) 01/29/25 16:16 Urine pH 5.5 (5-7) 01/29/25 16:16 Ur Specific [place] 1.013 (1.005-1.030) 01/29/25 16:16 Urine Protein Negative (Negative) 01/29/25 16:16 Urine Glucose (UA) Negative (Normal) 01/29/25 16:16 Urine Ketones Negative (Negative) 01/29/25 16:16 Urine Blood Trace (Negative) A 01/29/25 16:16 Urine Nitrate Negative (Negative) 01/29/25 16:16 Urine Bilirubin Negative (Negative) 01/29/25 16:16 Urine Urobilinogen 0.2 mg/dL (Negative) 01/29/25 16:16 Ur Leukocyte Esterase Negative (Negative) 01/29/25 16:16 Urine RBC 0-2 /hpf (0-2) 01/29/25 16:16 Urine WBC 0-5 /hpf (0-5) 01/29/25 16:16 Ur Squamous Epith Cells 0-5 /hpf (0-5) 01/29/25 16:16 Amorphous Sediment Not Reportable 01/29/25 16:16 Urine Bacteria None seen /hpf (NONE) 01/29/25 16:16 Hyaline Casts 4.52 /lpf 01/29/25 16:16 Vancomycin Trough 17.6 ug/mL (10-15) H 01/31/25 17:58 Salicylates < 0.3 mg/dL (3-10) L 01/29/25 13:20 Urine Opiates Screen Negative ng/mL (Negative) 01/29/25 16:16 Acetaminophen < 5.0 ug/mL (10-30) L 01/29/25 13:20 Ur Barbiturates Screen Negative ng/mL (Negative) 01/29/25 16:16 Ur Phencyclidine Scrn Negative ng/mL (Negative) 01/29/25 16:16 Ur Amphetamines Screen Negative ng/mL (Negative) 01/29/25 16:16 U Benzodiazepines Scrn Negative ng/mL (Negative) 01/29/25 16:16 Urine Cocaine Screen Negative ng/mL (Negative) 01/29/25 16:16 U Marijuana (THC) Screen Negative ng/mL (Negative) 01/29/25 16:16 Ethyl Alcohol < 10 mg/dL (0-10) 01/29/25 13:20 Hepatitis A IgM Ab Non-reactive (Nonreactive) 02/01/25 11:57 Hep Bs Antigen Non-reactive (Nonreactive) 02/01/25 11:57 Hep B Core IgM Ab Non-reactive (Nonreactive) 02/01/25 11:57 Hepatitis C Antibody Non-reactive (Nonreactive) 02/01/25 11:57 HIV 1&2 Ab & HIV 1 Ag Non-reactive (Non-Reactiv) 02/01/25 11:57 HIV 1&2 Antibody Non-reactive (Non-Reactiv) 02/01/25 11:57 Influenza A (PCR) Negative (Negative) 01/29/25 16:45 Influenza Type B (PCR) Negative (Negative) 01/29/25 16:45 RSV (PCR) Negative (Negative) 01/29/25 16:45 SARS-CoV-2 (PCR) Negative (Negative) 01/29/25 16:45 Vitals Last Vital Signs Temp 98.6 F 02/04/25 11:14 Pulse 73 02/04/25 11:14 Resp 17 02/04/25 11:14 BP 93/63 02/04/25 11:14 Pulse Ox 94 02/04/25 11:14 O2 Del Method Room Air 02/04/25 11:14 Discharge Plan Discharge Patient Disposition: Xfer SNF Condition: Stable Prescriptions: New cyanocobalamin (vitamin B-12) [Vitamin B-12] 1,000 mcg Tablet See Rx Instructions .ROUTE .COMPLEX 30 Days Qty: 60 0RF Rx Instructions: 2.5 tablets once daily for 5 days, followed by 1 tablet daily folic acid 1 mg Tablet 1 mg PO BID 30 Days Qty: 60 0RF methylphenidate HCl 10 mg Tablet 5 mg PO QAM 30 Days Qty: 15 0RF tamsulosin 0.4 mg Capsule 0.4 mg PO DAILY 30 Days Qty: 30 0RF Continued albuterol sulfate 90 mcg/actuation HFA aerosol inhaler 2 inh INHALATION Q4H PRN (Reason: shortness of breath or wheezing) Qty: 18 0RF levothyroxine [Synthroid] 75 mcg tablet 75 mcg PO DAILY omeprazole 20 mg capsule,delayed release(DR/EC) 20 mg PO DAILY Discontinued cefdinir 300 mg capsule 300 mg PO BID Qty: 14 0RF mirtazapine 7.5 mg tablet 7.5 mg PO DAILY Qty: 30 0RF Discharge Order = DC NOW: Discharge Order (Routine); Ordered 02/04/25 Ordered By: Paresh Zabala Other Ambulatory Orders: EEG electroencephalogram (Routine) Timeframe: 1 Day Facility: [facility] - Location: Neurology Ordered By: Paresh Zabala Referrals: [facility] [Outside] Jasmin Yuan MD [Physician, Neurology] - 06/10/25 1:00 pm Jose Pickett [Referring, Urology] - 2 weeks Referral Note: urinary retention, lindsay We have notified your physician's clinic of the need for a follow-up appointment to be scheduled. If you have not heard from them within the next 2 business days, please call them directly. SENT REFERRAL Juan Alberto Herndon MD [Physician, Cardiology] - 02/27/25 3:15 pm Referral Note: . Discharge Diet: Cardiac Discharge Activity: Resume usual activity Patient Instructions: Methylphenidate, Regular and Slow Release (By mouth), Tamsulosin (By mouth), Opioid Safety, Patient Portal & Tom Instructions Activity Restrictions/Additional Instructions: - For your urinary retention, please follow-up with urology, Lindsay catheter kept in place, -For your diet, dysphagia level 5 diet, mildly thickened - Follow-up with neurology - Outpatient EEG has been ordered Discharge Attestations Time Spent in Discharge Care*: greater than 30 min Quality Metrics Clinical Quality Measures [ No reported AMI, CVA or VTE this stay] Coding Level of Care Code 06655 Total time (in minutes) for Discharge: 45 Diagnoses Altered mental status R41.82
--- NOTE | 2025-02-04 15:46 | PC.OT ---
OT TREATMENT HELD DUE TO SCHEDULED PATIENT D/C
--- NOTE | 2025-02-04 19:53 | PC.NURSE ---
Patient Discharge Ems here to transport at shift change, Raul did not see patient.
== END 2025-02-04 19:30 | disposition skilled nursing facility (03) | DRG 72 ==
LOC: ER 17:08 → MEDSURG 20:10 → ER IP 01-30 20:22
PROVIDERS: Admitting Provider Family Medicine; Emergency Provider Emergency Medicine; Visit Provider Family Medicine
DX: G93.41 Metabolic encephalopathy (principal); Q90.9 Down syndrome, unspecified; E03.9 Hypothyroidism, unspecified; Q24.9 Congenital malformation of heart, unspecified; R13.10 Dysphagia, unspecified; W01.0XXA Fall on same level from slipping, tripping and stumbling without subsequent striking against object, initial encounter; E86.0 Dehydration; R40.0 Somnolence; I35.0 Nonrheumatic aortic (valve) stenosis; K22.2 Esophageal obstruction; D69.6 Thrombocytopenia, unspecified; Z87.440 Personal history of urinary (tract) infections
CPT/HCPCS: 36415; 36600; 51702; 51798; 62328; 70450; 70551; 71045; 71260; 72125; 74177; 76770; 80051; 80053; 80061; 80074; 80202; 80306; 80307; 81001; 82140; 82330; 82550; 82607; 82805; 83010; 83036; 83605; 83615; 83880; 84145; 84425; 84443; 84484; 85025; 86140; 87040; 87070; 87075; 87205; 87327; 87637; 87806; 92523; 92610; 93005; 93306; 93880; 94664; 96361; 96372; 96374; 96375; 97162; 97165; 97530; 99285; G0378; J0696; J1650; J2060; J2270; J2470; J2543; J3373; J3411; J3490; J7030; J9999

== ENCOUNTER → 2025-02-27 14:58 | Outpatient (BNVA) | payer MEDICARE, SELFPAY | PROVIDERS: PCP Electrodiagnostic Medicine; Visit Provider Internal Medicine Cardiovascular Disease | DX: Q24.9 Congenital malformation of heart, unspecified (principal); I34.0 Nonrheumatic mitral (valve) insufficiency; I35.0 Nonrheumatic aortic (valve) stenosis; Q21.0 Ventricular septal defect; Z98.890 Other specified postprocedural states; R06.02 Shortness of breath; R13.10 Dysphagia, unspecified | CPT/HCPCS: 36415; 80048; 83880; 99214 ==

== ENCOUNTER 2025-04-02 10:08 | Oncology outpatient (recurring) (ONCR) | payer MEDICARE, SELFPAY | END 2025-04-03 23:59 | disposition home or self-care (01) | LOC: ONCMED 10:09 | PROVIDERS: PCP Electrodiagnostic Medicine; Visit Provider Internal Medicine Medical Oncology | DX: D70.9 Neutropenia, unspecified (principal); Q90.9 Down syndrome, unspecified; Z79.899 Other long term (current) drug therapy | CPT/HCPCS: 99205 ==